=== PATIENT | female | born 1955 | race Caucasian/White ===

== ENCOUNTER 2016-11-20 11:27 | Emergency (ER) ==
[2016-11-20] MEDS ORDERED: NS 1,000 ML IV ONE ×2 (11:46→13:17)
[2016-11-20 11:57] LABS: MANUAL DIFF NEEDED? NO
[2016-11-20 12:02] LABS: BASO% 0.3 % (0.0-0.8); EOS# 0.13 X1000 (0.0-0.7); EOS% 1.7 % (0.0-10.0); HEMATOCRIT 39.9 % (37.0-47.0); HEMOGLOBIN 13.7 g/dL (12.0-16.0); LYMPH# 1.04 X1000 (1.2-3.4); LYMPH% 13.9 % (20.5-51.1); MCH 33.7 PG (27-31); MCHC 34.3 g/dL (33-37); MCV 98.3 FL (81-99); MONO# 0.57 X1000 (0.11-0.59); MONO% 7.6 % (1.7-9.3); MPV 10.1 FL (7.4-10.4); NEUT% 76.5 % (42.2-75.2); PLT 161 X1000 (130-400); RBC 4.06 XMIL (4.2-5.4)
[2016-11-20 12:20] LABS: ALBUMIN 3.8 g/dL (3.5-5.0); CALCIUM 9.4 mg/dL (8.8-10.2); POTASSIUM 3.8 mmol/L (3.5-5.1); TOTAL BILIRUBIN 0.11 mg/dL (0.20-1.00); TOTAL PROTEIN 6.6 g/dL (6.3-8.3)
[2016-11-20 12:58] LABS: URINE CULTURE NEEDED? NO; URINE MICRO REVIEW NEEDED? NO; URINE SOURCE CATH
[2016-11-20 13:03] LABS: BILIRUBIN URINE NEGATIVE (NEGATIVE); BLOOD URINE SMALL (NEGATIVE); COLOR YELLOW; GLUCOSE URINE NEGATIVE (NEGATIVE); LEUKOCYTES URINE NEGATIVE (NEGATIVE); NITRITE URINE NEGATIVE (NEGATIVE); PH URINE 5.5; PROTEIN URINE NEGATIVE (NEGATIVE); SP GRAVITY URINE 1.008; TURBIDITY URINE CLEAR (CLEAR); UROBILINOGEN URINE NORMAL (NORMAL)
[2016-11-20 13:05] LABS: UR EPITHELIAL CELLS <10 /HPF (<10); URINE BACTERIA NEGATIVE /HPF; URINE RBC <10 /HPF (<10); URINE WBC <10 /HPF (<10)
[2016-11-20 13:27] LABS: UR AMPHETAMINES QUAL NONE DETECTED (NONE DETECT); UR BARBITUATES QUAL NONE DETECTED (NONE DETECT); UR BENZODIAZEPIN QUAL NONE DETECTED (NONE DETECT); UR CANNABINOIDS QUAL NONE DETECTED (NONE DETECT); UR COCAINE QUAL NONE DETECTED (NONE DETECT); UR METHADONE QUAL NONE DETECTED (NONE DETECT); UR OPIATES QUAL PRESUMPTIVE POSITIVE (NONE DETECT); UR OXYCODONE QUAL NONE DETECTED (NONE DETECT); UR PCP QUAL NONE DETECTED (NONE DETECT)
[2016-11-20] MEDS ORDERED: DUONEB (A & A) INH ONE (15:38)
--- NOTE | 2016-11-20 15:45 | Diag Imaging Result Document ---
PROCEDURE NAME: CHEST-PORTABLE - 11/20/2016 SINGLE FRONTAL RADIOGRAPH OF THE CHEST: COMPARISON: 10/25/2016. FINDINGS: There is evidence of prior granulomatous disease, stable. The lungs are essentially clear, otherwise. There is no definite pleural fluid collection. Cardiac silhouette and central vasculature are grossly unremarkable. IMPRESSION: No definite acute pathology.
--- NOTE | 2016-11-20 15:54 | Diag Imaging Result Document ---
PROCEDURE NAME: CHEST-2 VIEWS - 11/20/2016 PA AND LATERAL RADIOGRAPH OF THE CHEST: COMPARISON: 11/20/2016. FINDINGS: There is evidence of prior granulomatous disease, stable. There are no new consolidations. Cardiac silhouette and central vasculature are grossly unremarkable. IMPRESSION: Stable chest with no definite acute pathology.
--- NOTE | 2016-11-20 16:41 | Diag Imaging Result Document ---
PROCEDURE NAME: HEAD W/O CONTRAST - 11/20/2016 CT HEAD WITHOUT CONTRAST: COMPARISON: 09/08/2015. FINDINGS: There is no discrete intracranial mass, mass effect, or intracranial hemorrhage. There is no evidence of hydrocephalus. There is no evidence of acute infarct given the limited sensitivity of CT versus MRI. The surrounding soft tissues and bony structures are essentially unremarkable. IMPRESSION: No evidence of acute intracranial pathology.
--- NOTE | 2016-11-20 17:21 | PROVIDER DOCUMENTATION ---
HPI-Syncope/Dizziness - General Chief Complaint: Syncope Stated Complaint: SYNCOPE Time Seen by Provider: 11/20/16 12:00 Source: patient, EMS Allergies/Adverse Reactions: Patient Allergies Allergy/AdvReac Type Severity Reaction Status Date / Time butorphanol tartrate * Allergy Mild NAUSEA Verified 11/20/16 12:08 [From Stadol] Home Medications: Home Medication List Medication Instructions Recorded Confirmed Last Taken Type Albuterol Sulfate [Albuterol 2 puff IH Q6H PRN PRN #1 hfa.aer.ad 09/12/1308/31/15 Rx Sulfate Hfa] 2 Levothyroxine [Synthroid] 50 microgm PO DAILY 09/12/13 11/20/16 09/15/16 08:00 History Multivitamin with Iron [Daily 1 each PO DAILY #100 tablet 11/30/14 09/15/1608/20 11:00 Rx Vitamin + Iron] Albuterol 2.5MG/Ipratrop 0.5MG 3 ml INH [id number] #30 neb 04/09/15 09/15/16 17:00 Rx [Duoneb (A & A)] Magnesium 400 mg PO HS 08/31/15 09/15/16 09/14/16 20:00 History Ropinirole HCl [Requip] 0.5 mg PO HS 08/31/15 11/20/16 09/14/16 20:00 History Dronabinol [Marinol] 1 cap PO BID 05/10/16 09/15/16 09/15/16 08:00 History Gabapentin [Neurontin] 600 mg PO BID 05/10/16 09/15/16 09/15/16 08:00 History Ondansetron HCl [Zofran] 4 mg PO Q4H PRN PRN #10 tablet 05/10/16 09/15/16 Unknown Rx Hydrocodone/APAP 7.5 mg/325 mg 1 each PO Q6H PRN PRN #10 tablet 09/15/16 Unknown Rx [[place]-7.5] Ibuprofen [Motrin] 800 mg PO Q8H PRN PRN #20 tablet 09/15/16 Unknown Rx Omeprazole [Prilosec] 20 mg PO DAILY@0700 #20 capsule 09/15/16 11/20/16 Unknown Rx Azithromycin [Zithromax Z-Valeriy] 250 mg PO DIRECTED #1 pkg 11/20/16 Unknown Rx - History of Present Illness-Syncope/Dizzy Nature of Presenting Problem: 61 yo with breast cancer and copd. 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 No falls. Friend caught her. has chronic cough. Seen here in ER 1 month ago with etoh intoxication If witnessed syncope, by whom?: friend Onset/Duration: reports: 4-6 hours ago Symptoms prior to episode: reports: lightheaded, other (body aches) Context: reports: felt faint, almost passed out Loss of Consciousness: brief (seconds) Location of injury. (If syncope resulted in an injury.): reports: none Current Symptoms: reports: lightheaded. denies: fever, chills, sweaty, breathing difficulty, abdominal pain, nausea, vomiting Recently Seen Here or By Another Healthcare Provider: No - Dizziness Dizziness Related Current/Associated Symptoms: reports: weakness, lightheaded Any recent trauma/injury?: reports: none Review of Systems - Adult - REVIEW OF SYSTEMS - ADULT Constitutional: reports: see HPI Eyes: reports: no symptoms reported Ears, Nose, Mouth & Throat: reports: no symptoms reported Cardiovascular: reports: no symptoms reported Respiratory: reports: chronic cough Gastrointestinal: reports: no symptoms reported Genitourinary: reports: no symptoms reported Musculoskeletal: reports: muscle aches, muscle weakness Integumentary: reports: no symptoms reported Neurological: reports: see HPI Psychiatric: reports: no symptoms reported Endocrine: reports: no symptoms reported Hematologic/Lymphatic: reports: other (breast cancer) Past History - Adult - PAST MEDICAL HISTORY-ADULT Review of Records: reports: Old Records Reviewed, Nursing Assessment Review, Medications Reviewed Major Childhood Illnesses: reports: history unknown Cardiovascular: reports: denies history Respiratory: reports: COPD Gastrointestinal: reports: GERD Obstetrical/Gynecological: reports: denies history Genitourinary: reports: denies history Musculoskeletal: reports: arthritis, intervertebral disc disease, osteoporosis, other Psychiatric: reports: anxiety Endocrine/Immune: reports: thyroid disorder, other (breast cancer) - PRIOR SURGERIES/PROCEDURES Surgical/Procedure History: reports: appendectomy, hysterectomy, orthopedic ( extremity), other (mastectomy) - IMMUNIZATION STATUS Childhood Immunizations: See Nurse Assessment Flu Vaccine: See Nurse Assessment - FAMILY HISTORY Family History: reviewed, not pertinent Physical Exam-General - PHYSICAL EXAM-ADULT Initial Vital Signs Reviewed: Yes - CONSTITUTIONAL General Appearance: no apparent distress, slow to respond - EYES Eyes: PERRL/EOMI - HEAD, EARS, NOSE, MOUTH & THROAT HENMT: normal ENT inspection, pharynx normal - NECK Neck: non-tender, full range of motion, supple - RESPIRATORY Respiratory: chest non-tender, lungs clear, decreased breath sounds - CARDIOVASCULAR Cardiovascular: regular rate, rhythm, no edema, no gallop, no JVD, no murmur - GASTROINTESTINAL (ABDOMEN) Abdominal Exam: normal bowel sounds, non tender, soft, no organomegaly - MUSCULOSKELETAL Back Exam: normal inspection, no CVA tenderness, no vertebral tenderness Extremity: normal range of motion, non-tender, normal inspection, no pedal edema - NEUROLOGIC Neurologic: no motor/sensory deficits, other (somnolent, arouses to voice) - PSYCHIATRIC Psych/Mental Status: oriented x 3 Progress - PLAN OF CARE/RESULTS Progress/Plan/Lab Results: Laboratory Tests 11/20/16 11/20/16 11/20/16 11:45 11:45 11:45 WBC 7.49 RBC 4.06 L Hgb 13.7 Hct 39.9 MCV 98.3 MCH 33.7 H MCHC 34.3 RDW Std Deviation 13.4 Plt Count 161 MPV 10.1 Immature Gran % (Auto) 0.0 Neut % (Auto) 76.5 H Lymph % (Auto) 13.9 L [place] % (Auto) 7.6 Eos % (Auto) 1.7 Baso % (Auto) 0.3 Immature Gran # (Auto) 0.00 Neut # (Auto) 5.73 Lymph # (Auto) 1.04 L [place] # (Auto) 0.57 Eos # (Auto) 0.13 Baso # (Auto) 0.02 D-Dimer 0.31 Sodium 138 Potassium 3.8 Chloride 99 Carbon Dioxide 26 Anion Gap 13 BUN 29 H Creatinine 1.2 H Estimated GFR/1.73 m2 46 BUN/Creatinine Ratio 24 Glucose 96 POC Glucose Calculated Osmolality 281 Calcium 9.4 Total Bilirubin 0.11 L AST 17 ALT 13 Alkaline Phosphatase 54 Troponin T Total Protein 6.6 Albumin 3.8 Globulin 2.8 Albumin/Globulin Ratio 1.4 Plasma Lactate Urine Source Urine Color Urine Turbidity Urine pH Ur Specific Wanda Urine Protein Ur Glucose (Stick) Ur Ketones (Stick) Urine Blood Urine Nitrite Urine Bilirubin Urobilinogen Dipstick Urine Leukocytes Urine WBC (Auto) Urine RBC (Auto) U Epithel Cells (Auto) Urine Bacteria (Auto) Urine Opiates Screen Ur Oxycodone Screen Ur Methadone, Qual Ur Barbiturates Screen Ur Phencyclidine Scrn Ur Amphetamines Screen U Benzodiazepines Scrn Urine Cocaine Screen U Cannabinoids Screen Plasma/Serum Ethyl Alc 11/20/16 11/20/16 11/20/16 11:45 12:12 12:51 WBC RBC Hgb Hct MCV MCH MCHC RDW Std Deviation Plt Count MPV Immature Gran % (Auto) Neut % (Auto) Lymph % (Auto) [place] % (Auto) Eos % (Auto) Baso % (Auto) Immature Gran # (Auto) Neut # (Auto) Lymph # (Auto) [place] # (Auto) Eos # (Auto) Baso # (Auto) D-Dimer Sodium Potassium Chloride Carbon Dioxide Anion Gap BUN Creatinine Estimated GFR/1.73 m2 BUN/Creatinine Ratio Glucose POC Glucose 74 Calculated Osmolality Calcium Total Bilirubin AST ALT Alkaline Phosphatase Troponin T < 0.010 Total Protein Albumin Globulin Albumin/Globulin Ratio Plasma Lactate Urine Source CATH Urine Color YELLOW Urine Turbidity CLEAR Urine pH 5.5 Ur Specific Wanda 1.008 Urine Protein NEGATIVE Ur Glucose (Stick) NEGATIVE Ur Ketones (Stick) NEGATIVE Urine Blood SMALL A Urine Nitrite NEGATIVE Urine Bilirubin NEGATIVE Urobilinogen Dipstick NORMAL Urine Leukocytes NEGATIVE Urine WBC (Auto) <10 Urine RBC (Auto) <10 U Epithel Cells (Auto) <10 Urine Bacteria (Auto) NEGATIVE Urine Opiates Screen Ur Oxycodone Screen Ur Methadone, Qual Ur Barbiturates Screen Ur Phencyclidine Scrn Ur Amphetamines Screen U Benzodiazepines Scrn Urine Cocaine Screen U Cannabinoids Screen Plasma/Serum Ethyl Alc 11/20/16 11/20/16 11/20/16 12:51 16:44 16:44 WBC RBC Hgb Hct MCV MCH MCHC RDW Std Deviation Plt Count MPV Immature Gran % (Auto) Neut % (Auto) Lymph % (Auto) [place] % (Auto) Eos % (Auto) Baso % (Auto) Immature Gran # (Auto) Neut # (Auto) Lymph # (Auto) [place] # (Auto) Eos # (Auto) Baso # (Auto) D-Dimer Sodium Potassium Chloride Carbon Dioxide Anion Gap BUN Creatinine Estimated GFR/1.73 m2 BUN/Creatinine Ratio Glucose POC Glucose Calculated Osmolality Calcium Total Bilirubin AST ALT Alkaline Phosphatase Troponin T Total Protein Albumin Globulin Albumin/Globulin Ratio Plasma Lactate 0.7 Urine Source Urine Color Urine Turbidity Urine pH Ur Specific Wanda Urine Protein Ur Glucose (Stick) Ur Ketones (Stick) Urine Blood Urine Nitrite Urine Bilirubin Urobilinogen Dipstick Urine Leukocytes Urine WBC (Auto) Urine RBC (Auto) U Epithel Cells (Auto) Urine Bacteria (Auto) Urine Opiates Screen PRESUMPTIVE POSITIVE A Ur Oxycodone Screen NONE DETECTED Ur Methadone, Qual NONE DETECTED Ur Barbiturates Screen NONE DETECTED Ur Phencyclidine Scrn NONE DETECTED Ur Amphetamines Screen NONE DETECTED U Benzodiazepines Scrn NONE DETECTED Urine Cocaine Screen NONE DETECTED U Cannabinoids Screen NONE DETECTED Plasma/Serum Ethyl Alc Orders Category Date Time Status CHEST-2 VIEWS [RAD] Stat Exams 11/20/16 13:59 Draft CHEST-PORTABLE [RAD] Stat Exams 11/20/16 11:43 Draft HEAD W/O CONTRAST [CT] Stat Exams 11/20/16 15:34 Draft ALCOHOL BLOOD Stat Lab 11/20/16 16:44 Completed BLOOD CULTURE [BLDCUL] Stat Lab 11/20/16 16:49 Results CBC WITH ELECTRONIC DIFF [HEME] Stat Lab 11/20/16 11:45 Completed COMPREHENSIVE METABOLIC PANEL [CHEM] Stat Lab 11/20/16 11:45 Completed D-DIMER [CHEM] Stat Lab 11/20/16 11:45 Completed LACTATE, PLASMA [CHEM] Stat Lab 11/20/16 16:44 Completed TROPONIN T Stat Lab 11/20/16 11:45 Completed URINALYSIS W/POSS RFLX CULT [URINALYSIS] Stat Lab 11/20/16 12:51 Completed URINE DRUG SCREEN Stat Lab 11/20/16 12:51 Completed 0.9% Sodium Chloride Inj [Ns] 1,000 ml Med 11/20/16 13:17 Discontinued IV 125 mls/hr 0.9% Sodium Chloride Inj [Ns] 1,000 ml Med 11/20/16 11:46 Discontinued IV 999 mls/hr Albuterol 2.5MG/Ipratrop 0.5MG [Duoneb (A & A)] Med 11/20/16 15:38 Discontinued 3 ml INH NOW ONE Aerosol Treatments Routine Oth 03/19/17 15:38 Completed Aerosol Treatments Stat Oth 11/20/16 15:38 Completed Vital Signs Temp Pulse Resp BP Pulse Ox 11/20/16 18:35 97.8 F 93 H 17 153/87 100 11/20/16 16:19 95 H 16 100 11/20/16 14:19 105 H 22 141/87 92 L 11/20/16 12:55 94 H 16 140/83 98 11/20/16 11:52 98.4 F 94 H 16 105/61 94 L butorphanol tartrate * [From Stadol] Allergy (Mild, Verified 11/20/16 12:08) NAUSEA Albuterol Sulfate [Albuterol Sulfate Hfa] 2 puff IH Q6H PRN PRN #1 hfa.aer.ad Levothyroxine [Synthroid] 50 microgm PO DAILY 09/12/13 Multivitamin with Iron [Daily Vitamin + Iron] 1 each PO DAILY #100 tablet Albuterol 2.5MG/Ipratrop 0.5MG [Duoneb (A & A)] 3 ml INH [id number] #30 neb Magnesium 400 mg PO HS 08/31/15 Ropinirole HCl [Requip] 0.5 mg PO HS 08/31/15 Dronabinol [Marinol] 1 cap PO BID 05/10/16 Gabapentin [Neurontin] 600 mg PO BID 05/10/16 Ondansetron HCl [Zofran] 4 mg PO Q4H PRN PRN #10 tablet 05/10/16 Hydrocodone/APAP 7.5 mg/325 mg [[place]-7.5] 1 each PO Q6H PRN PRN #10 tablet 08/20 Ibuprofen [Motrin] 800 mg PO Q8H PRN PRN #20 tablet 09/15/16 Omeprazole [Prilosec] 20 mg PO DAILY@0700 #20 capsule 09/15/16 Azithromycin [Zithromax Z-Valeriy] 250 mg PO DIRECTED #1 pkg 11/20/16 I&O 11/19/16 11/20/16 11/21/16 06:59 06:59 06:59 Output Total 20 Balance -20 Laboratory 11/20/16 11/20/16 11/20/16 16:44 16:44 12:51 WBC RBC Hgb Hct MCV MCH MCHC RDW Std Deviation Plt Count MPV Immature Gran % (Auto) Neut % (Auto) Lymph % (Auto) [place] % (Auto) Eos % (Auto) Baso % (Auto) Immature Gran # (Auto) Neut # (Auto) Lymph # (Auto) [place] # (Auto) Eos # (Auto) Baso # (Auto) D-Dimer Sodium Potassium Chloride Carbon Dioxide Anion Gap BUN Creatinine Estimated GFR/1.73 m2 BUN/Creatinine Ratio Glucose POC Glucose Calculated Osmolality Calcium Total Bilirubin AST ALT Alkaline Phosphatase Troponin T Total Protein Albumin Globulin Albumin/Globulin Ratio Plasma Lactate 0.7 Urine Source Urine Color Urine Turbidity Urine pH Ur Specific Wanda Urine Protein Ur Glucose (Stick) Ur Ketones (Stick) Urine Blood Urine Nitrite Urine Bilirubin Urobilinogen Dipstick Urine Leukocytes Urine WBC (Auto) Urine RBC (Auto) U Epithel Cells (Auto) Urine Bacteria (Auto) Urine Opiates Screen PRESUMPTIVE POSITIVE A Ur Oxycodone Screen NONE DETECTED Ur Methadone, Qual NONE DETECTED Ur Barbiturates Screen NONE DETECTED Ur Phencyclidine Scrn NONE DETECTED Ur Amphetamines Screen NONE DETECTED U Benzodiazepines Scrn NONE DETECTED Urine Cocaine Screen NONE DETECTED U Cannabinoids Screen NONE DETECTED Plasma/Serum Ethyl Alc 11/20/16 11/20/16 11/20/16 12:51 12:12 11:45 WBC RBC Hgb Hct MCV MCH MCHC RDW Std Deviation Plt Count MPV Immature Gran % (Auto) Neut % (Auto) Lymph % (Auto) [place] % (Auto) Eos % (Auto) Baso % (Auto) Immature Gran # (Auto) Neut # (Auto) Lymph # (Auto) [place] # (Auto) Eos # (Auto) Baso # (Auto) D-Dimer Sodium Potassium Chloride Carbon Dioxide Anion Gap BUN Creatinine Estimated GFR/1.73 m2 BUN/Creatinine Ratio Glucose POC Glucose 74 Calculated Osmolality Calcium Total Bilirubin AST ALT Alkaline Phosphatase Troponin T < 0.010 Total Protein Albumin Globulin Albumin/Globulin Ratio Plasma Lactate Urine Source CATH Urine Color YELLOW Urine Turbidity CLEAR Urine pH 5.5 Ur Specific Wanda 1.008 Urine Protein NEGATIVE Ur Glucose (Stick) NEGATIVE Ur Ketones (Stick) NEGATIVE Urine Blood SMALL A Urine Nitrite NEGATIVE Urine Bilirubin NEGATIVE Urobilinogen Dipstick NORMAL Urine Leukocytes NEGATIVE Urine WBC (Auto) <10 Urine RBC (Auto) <10 U Epithel Cells (Auto) <10 Urine Bacteria (Auto) NEGATIVE Urine Opiates Screen Ur Oxycodone Screen Ur Methadone, Qual Ur Barbiturates Screen Ur Phencyclidine Scrn Ur Amphetamines Screen U Benzodiazepines Scrn Urine Cocaine Screen U Cannabinoids Screen Plasma/Serum Ethyl Alc 11/20/16 11/20/16 11/20/16 11:45 11:45 11:45 WBC 7.49 RBC 4.06 L Hgb 13.7 Hct 39.9 MCV 98.3 MCH 33.7 H MCHC 34.3 RDW Std Deviation 13.4 Plt Count 161 MPV 10.1 Immature Gran % (Auto) 0.0 Neut % (Auto) 76.5 H Lymph % (Auto) 13.9 L [place] % (Auto) 7.6 Eos % (Auto) 1.7 Baso % (Auto) 0.3 Immature Gran # (Auto) 0.00 Neut # (Auto) 5.73 Lymph # (Auto) 1.04 L [place] # (Auto) 0.57 Eos # (Auto) 0.13 Baso # (Auto) 0.02 D-Dimer 0.31 Sodium 138 Potassium 3.8 Chloride 99 Carbon Dioxide 26 Anion Gap 13 BUN 29 H Creatinine 1.2 H Estimated GFR/1.73 m2 46 BUN/Creatinine Ratio 24 Glucose 96 POC Glucose Calculated Osmolality 281 Calcium 9.4 Total Bilirubin 0.11 L AST 17 ALT 13 Alkaline Phosphatase 54 Troponin T Total Protein 6.6 Albumin 3.8 Globulin 2.8 Albumin/Globulin Ratio 1.4 Plasma Lactate Urine Source Urine Color Urine Turbidity Urine pH Ur Specific Wanda Urine Protein Ur Glucose (Stick) Ur Ketones (Stick) Urine Blood Urine Nitrite Urine Bilirubin Urobilinogen Dipstick Urine Leukocytes Urine WBC (Auto) Urine RBC (Auto) U Epithel Cells (Auto) Urine Bacteria (Auto) Urine Opiates Screen Ur Oxycodone Screen Ur Methadone, Qual Ur Barbiturates Screen Ur Phencyclidine Scrn Ur Amphetamines Screen U Benzodiazepines Scrn Urine Cocaine Screen U Cannabinoids Screen Plasma/Serum Ethyl Alc - REASSESSMENT Reassessment #1 Time Reassessed: 18:00 (gradual improving mental status over several hours? dehydration, ? opioid related) - EKG 1 EKG Read and Signed by:: Solange Mosley EKG Interpretation (*Must complete 3 of following elements*): Normal Rhythm: nsr - XRAY 1 XRAY Study: Chest (no acute changes) - CT/MRI 1 CT Study: Head (no intracranial acute process) Departure - Departure Time of Disposition Order: 18:32 DIAGNOSIS: Syncope, Bronchitis Disposition: HOME 01 Certified Medical Emergency: Emergent Condition: Fair Additional Instructions: Drink plenty of fluids, get up slowly and sit on the edge of bed before standing. Be cautious with your pain medication use. No work for 2 days. Return to emergency room if further fainting spells See your regular doctor if you continue to feel light headed. Fill and take zith romax for your cough ED Follow Up Instructions: You have been treated by a care provider in the Emergency Department. These instructions are being provided to you so you can have an understanding of how to care for yourself upon discharge. Upon discharge from the Emergency Department, you are responsible for making arrangements for follow-up care by a physician of your choice. Take all prescribed medications as directed. Return to the Emergency Department immediately for any new or worsening symptoms. You may call the Physician Referral phone number at [phone] to obtain a list of Physicians who are taking new patients. Prescriptions: Azithromycin [Zithromax Z-Valeriy] 250 mg PO DIRECTED #1 pkg Referrals: None,PCP [Primary Care Provider] - Forms: Return to School/Parent Work Instructions: Acute Bronchitis, [id number], Syncope, [id number]
[2016-11-20 18:36] VITALS: BP 153/87
--- NOTE | 2016-11-21 05:52 | EKG Report ---
Test Performed on : 11/20/2016 11:33:55 AM Test Reason : No Order in [employer] Blood Pressure : / mmHG Vent. Rate : 090 BPM Atrial Rate : 090 BPM P-R Int : 138 ms QRS Dur : 080 ms QT Int : 356 ms P-R-T Axes : 077 071 068 degrees QTc Int : 435 ms Normal sinus rhythm. Possible Left atrial enlargement Borderline ECG When compared with ECG of 10-MAY-2016 06:33, No significant change was found Unconfirmed Result
== END 2016-11-20 18:50 | disposition home or self-care (01) ==
LOC: EDBD → ED 11:27
DX: R55 Syncope and collapse (principal); J40 Bronchitis, not specified as acute or chronic; R42 Dizziness and giddiness; M79.1 Myalgia; M62.81 Muscle weakness (generalized); R05 Cough; Z85.3 Personal history of malignant neoplasm of breast; K21.9 Gastro-esophageal reflux disease without esophagitis; J44.9 Chronic obstructive pulmonary disease, unspecified; M19.90 Unspecified osteoarthritis, unspecified site; M81.0 Age-related osteoporosis without current pathological fracture; E07.9 Disorder of thyroid, unspecified; Z90.10 Acquired absence of unspecified breast and nipple; Z79.899 Other long term (current) drug therapy
CPT/HCPCS: 36415; 70450; 71010; 71020; 80053; 81001; 82948; 83605; 84484; 85025; 85379; 87040; 93005; 94640; 94761; 96360; G0480; J7030; P9612; 80320; 80324; 80345; 80346; 80349; 80353; 80358; 80361; 80365; 83992

== ENCOUNTER 2019-07-15 22:54 | Inpatient (IN) ==
--- NOTE | 2019-07-15 23:50 | EKG Report ---
Test Performed on : 07/15/2019 11:43:24 PM Test Reason : SYNCOPE Blood Pressure : / mmHG Vent. Rate : 085 BPM Atrial Rate : 085 BPM P-R Int : 152 ms QRS Dur : 092 ms QT Int : 376 ms P-R-T Axes : 078 065 063 degrees QTc Int : 447 ms Normal sinus rhythm. Normal ECG When compared with ECG of 20-NOV-2016 11:33, No significant change was found Unconfirmed Result
[2019-07-16 00:30] LABS: BASO# 0.03 X1000 (0.0-0.2); BASO% 0.6 % (0.0-0.8); EOS# 0.08 X1000 (0.0-0.7); EOS% 1.5 % (0.0-10.0); HEMATOCRIT 33.2 % (37.0-47.0); HEMOGLOBIN 11.5 g/dL (12.0-16.0); IMM GRAN# 0.01 X1000 (0.0-0.04); IMM GRAN% 0.2 % (0.0-0.5); LYMPH# 0.59 X1000 (1.2-3.4); LYMPH% 11.4 % (20.5-51.1); MCH 30.4 PG (27-31); MCHC 34.6 g/dL (33-37); MCV 87.8 FL (81-99); MONO# 0.75 X1000 (0.11-0.59); MONO% 14.5 % (1.7-9.3); MPV 9.2 FL (7.4-10.4); NEUT# 3.73 X1000 (1.4-6.5); NEUT% 71.8 % (42.2-75.2); PLT 174 X1000 (130-400); RBC 3.78 XMIL (4.2-5.4); RDW 12.4 % (11.5-14.5); WBC 5.19 X1000 (4.8-10.8)
[2019-07-16 00:32] LABS: BILIRUBIN URINE NEGATIVE (NEGATIVE); BLOOD URINE 3+ (NEGATIVE); CLARITY CLEAR (CLEAR); COLOR YELLOW; GLUCOSE URINE NEGATIVE (NEGATIVE); KETONE URINE NEGATIVE (NEGATIVE); LEUKOCYTES URINE NEGATIVE (NEGATIVE); NITRITE URINE NEGATIVE (NEGATIVE); PROTEIN URINE 1+(30 mg/dL) mg/dL (NEGATIVE); UROBILINOGEN URINE NORMAL
[2019-07-16 00:33] LABS: UR AMPHETAMINES QUAL NONE DETECTED (NONE DETECT); UR BARBITUATES QUAL NONE DETECTED (NONE DETECT); UR BENZODIAZEPIN QUAL PRESUMPTIVE POSITIVE (NONE DETECT); UR CANNABINOIDS QUAL PRESUMPTIVE POSITIVE (NONE DETECT); UR COCAINE QUAL NONE DETECTED (NONE DETECT); UR METHADONE QUAL NONE DETECTED (NONE DETECT); UR METHAMPHETAMINE QUAL NONE DETECTED (NONE DETECT); UR OPIATES QUAL PRESUMPTIVE POSITIVE (NONE DETECT); UR OXYCODONE QUAL NONE DETECTED (NONE DETECT); UR PCP QUAL NONE DETECTED (NONE DETECT); UR PROPOXYPHENE QUAL NONE DETECTED (NONE DETECT); UR TCA QUAL PRESUMPTIVE POSITIVE (NONE DETECT)
[2019-07-16 00:34] LABS: INR 0.92; PROTIME 12.8 Seconds (11.0-16.0)
[2019-07-16 00:35] LABS: PTT 32.9 Seconds (22.3-41.8)
--- NOTE | 2019-07-16 00:38 | PROVIDER DOCUMENTATION ---
This chart was entered by Gita Wilkerson Scribe, acting as scribe for Ainsley White CRNP. HPI-Syncope/Dizziness - General Source: patient - History of Present Illness-Syncope/Dizzy If witnessed syncope, by whom?: unwitnessed Prior Episodes: reports: single episode today Onset/Duration: reports: just prior to arrival Timing: reports: improving Position/Activity at time of episode: reports: standing Symptoms prior to episode: reports: none Context: reports: lost consciousness, collapsed, breathing stopped (per pt) Loss of Consciousness: prolonged (minutes) (per pt) Location of injury. (If syncope resulted in an injury.): reports: none Current Symptoms: reports: weakness, lightheaded Recently Seen Here or By Another Healthcare Provider: Yes - Dizziness Severity in ED: reports: mild Dizziness Related Current/Associated Symptoms: reports: weakness, lightheaded Any recent trauma/injury?: reports: none Modifying Factors: improves with: nothing Patient usually:: reports: walks without assistance <Ainsley White - Last Filed: 07/16/19 00:38> <Baljit Estevez - Last Filed: 07/16/19 02:29> - General Stated Complaint: passed out Time Seen by Provider: 07/15/19 22:54 Allergies/Adverse Reactions: Patient Allergies Allergy/AdvReac Type Severity Reaction Status Date / Time butorphanol tartrate * Allergy Mild NAUSEA Verified 10/27/18 00:44 [From Stadol] Home Medications: Home Medication List Medication Instructions Recorded Confirmed Last Taken Type Gabapentin [Neurontin] 800 mg PO TID 05/10/16 07/16/19 02/13/18 19:00 History Hydrocodone/APAP 10 mg/325 mg 1 each PO Q12H PRN PRN 02/13/18 07/16/19 02/12/18 08:00 History [[place]-10] Omeprazole [Prilosec] 40 mg PO DAILY 02/13/18 07/16/19 02/13/18 09:00 History Baclofen 10 mg PO TID 07/16/19 07/16/19 Unknown History Celecoxib 1 cap PO DAILY 07/16/19 07/16/19 Unknown History Cyclobenzaprine HCl 10 mg PO TID 07/16/19 07/16/19 Unknown History Diclofenac Sodium 75 mg PO BID 07/16/19 07/16/19 Unknown History Lorazepam 1 tab PO BID 07/16/19 07/16/19 Unknown History Quetiapine Fumarate 25 mg PO HS 07/16/19 07/16/19 Unknown History Varenicline Tartrate [Chantix] 1 dose PO ORDERED 07/16/19 07/16/19 Unknown History - History of Present Illness-Syncope/Dizzy Nature of Presenting Problem: pt is a 63 yr old female presenting via EMS post syncope. pt reports she was dx as metastatic lung cancer 4 days ago. pt reports tonight she took all her night medications and then passed out as she was going to bed. pt states "I passed out and stopped breathing, and had trouble talking" per EMS pt was breathing and talking without difficulty upon their arrival. (Ainsley White) Review of Systems - Adult - REVIEW OF SYSTEMS - ADULT Constitutional: reports: fatique. denies: chills, fever Eyes: reports: no symptoms reported Ears, Nose, Mouth & Throat: reports: no symptoms reported Cardiovascular: reports: no symptoms reported Respiratory: denies: cough, shortness of breath Gastrointestinal: denies: abdominal pain, diarrhea, nausea, vomiting Genitourinary: reports: no symptoms reported Musculoskeletal: denies: back pain, joint pain, neck pain Integumentary: reports: no symptoms reported Neurological: reports: dizziness/vertigo, slurred speech, syncope. denies: headache/migraines Psychiatric: reports: no symptoms reported Endocrine: reports: no symptoms reported Hematologic/Lymphatic: reports: no symptoms reported Allergic/Immunologic: reports: no symptoms reported All Other Systems: Reviewed and Negative <Ainsley White - Last Filed: 07/16/19 00:38> Past History - Adult - PAST MEDICAL HISTORY-ADULT Review of Records: reports: Old Records Reviewed, Nursing Assessment Review, Medications Reviewed, Social history reviewed & non-contributory. Major Childhood Illnesses: reports: history unknown Cardiovascular: reports: denies history Respiratory: reports: COPD Gastrointestinal: reports: GERD Obstetrical/Gynecological: reports: denies history Genitourinary: reports: denies history Musculoskeletal: reports: arthritis, intervertebral disc disease, osteoporosis, other Neurological: reports: denies history Psychiatric: reports: anxiety Endocrine/Immune: reports: thyroid disorder, other (breast cancer) Other Conditions: reports: denies history - PRIOR SURGERIES/PROCEDURES Surgical/Procedure History: reports: appendectomy, hysterectomy, orthopedic (extremity), other (mastectomy) - IMMUNIZATION STATUS Childhood Immunizations: See Nurse Assessment Flu Vaccine: See Nurse Assessment - FAMILY HISTORY Family History: reviewed, not pertinent - SOCIAL HISTORY Smoking: cigarettes Provider spent 3-5 mins advising pt. on dangers of tobacco.: Discussed manners to quit use, and f/u contacts for add'l counseling. Living Situation: family <Ainsley White - Last Filed: 07/16/19 00:38> Physical Exam-General - PHYSICAL EXAM-ADULT Initial Vital Signs Reviewed: Yes - CONSTITUTIONAL General Appearance: alert, no apparent distress, thin. negative: appears well (CHRONICALLY ILL APPEARING) - EYES Eyes: PERRL/EOMI - HEAD, EARS, NOSE, MOUTH & THROAT HENMT: normocephalic/atraumatic, moist mucous membranes, normal ENT inspection - NECK Neck: non-tender, full range of motion, supple, normal inspection - RESPIRATORY Respiratory: lungs clear, normal breath sounds - CARDIOVASCULAR Cardiovascular: normal peripheral pulses, regular rate, rhythm - GASTROINTESTINAL (ABDOMEN) Abdominal Exam: normal bowel sounds, non tender, soft - LYMPHATIC Lymphatic: no adenopathy - MUSCULOSKELETAL Back Exam: normal inspection, no CVA tenderness, no vertebral tenderness Extremity: normal range of motion, non-tender, normal gait, normal inspection - SKIN Integumentary: normal color, normal turgor, warm/dry - NEUROLOGIC Neurologic: grossly normal, no motor/sensory deficits - PSYCHIATRIC Psych/Mental Status: normal mood/affect <Ainsley White - Last Filed: 07/16/19 00:38> Progress - PLAN OF CARE/RESULTS Result Diagrams: 07/15/19 23:45 - REASSESSMENT Reassessment #1 Time Reassessed: 23:31 (PT SLEEPING SOUNDLY BUT EASILY AROUSABLE ON EXAM. REQUESTING PAIN MEDS BUT WAS SNORING WHEN ORIGINALLY ASSESSED ) Status: unchanged - EKG 1 Time of EKG reading by physician:: 23:43 EKG Read and Signed by:: Baljit Estevez EKG Interpretation (*Must complete 3 of following elements*): Normal Rate: 85 Rhythm: NSR [place]: normal QRS: normal [place] Interval: normal ST Wave: normal Prior EKG Comparison: unchanged from prior - CT/MRI 1 CT Study: Head Impression: See EMR Report (1. STABLE HEAD CT NO ACUTE INTRACRANIAL PROCESS.) - CHANGE OF SHIFT REPORT (ED Provider) 1 Report Given and Care Transferred to:: DR ESTEVEZ Time of Transfer: 00:37 Items Pending: Labs (CMP PENDING---> DC, DISCUSSED POSSIBLE OVER MEDICATION) <Ainsley White - Last Filed: 07/16/19 00:38> - PLAN OF CARE/RESULTS Result Diagrams: 07/15/19 23:45 07/15/19 23:47 <Baljit Estevez - Last Filed: 07/16/19 02:29> - PLAN OF CARE/RESULTS Progress/Plan/Lab Results: Vital Signs - 8 hr 07/15/19 22:56 07/16/19 01:39 Temperature 97.9 F Pulse Rate 85 90 Respiratory Rate 16 21 Blood Pressure 113/83 126/83 O2 Sat by Pulse Oximetry 97 100 Laboratory Results - last 24 hr 07/15/19 07/15/19 07/15/19 00:18 00:18 23:45 WBC 5.19 RBC 3.78 L Hgb 11.5 L Hct 33.2 L MCV 87.8 MCH 30.4 MCHC 34.6 RDW Std Deviation 12.4 Plt Count 174 MPV 9.2 Immature Gran % (Auto) 0.2 Neut % (Auto) 71.8 Lymph % (Auto) 11.4 L [place] % (Auto) 14.5 H Eos % (Auto) 1.5 Baso % (Auto) 0.6 Immature Gran # (Auto) 0.01 Neut # (Auto) 3.73 Lymph # (Auto) 0.59 L [place] # (Auto) 0.75 H Eos # (Auto) 0.08 Baso # (Auto) 0.03 PT INR PTT ([place] FS) Sodium Potassium Chloride Carbon Dioxide Anion Gap BUN Creatinine Estimated GFR/1.73 m2 BUN/Creatinine Ratio Glucose POC Glucose Calculated Osmolality Calcium Total Bilirubin AST ALT Alkaline Phosphatase Creatine Kinase Troponin T Total Protein Albumin Globulin Albumin/Globulin Ratio Urine Source CATH Urine Color YELLOW Urine Clarity CLEAR Urine pH 6.0 Ur Specific [place] 1.020 Urine Protein 1+(30 mg/dL) A Urine Ketones NEGATIVE Urine Blood 3+ A Urine Nitrite NEGATIVE Urine Bilirubin NEGATIVE Urine Urobilinogen NORMAL Urine Microscopic RBC 10-20 A Urine WBC NEGATIVE Urine Microscopic WBC <10 Ur Epithelial Cells <10 Urine Bacteria 2+ Urine Yeast PRESENT Urine Glucose NEGATIVE Urine Opiates Screen PRESUMPTIVE POSITIVE A Ur Oxycodone Screen NONE DETECTED Urine Methadone Screen NONE DETECTED U Propoxyphene Qual NONE DETECTED Ur Barbituates Screen NONE DETECTED Ur Tricyclics Screen PRESUMPTIVE POSITIVE A Ur Phencyclidine Scrn NONE DETECTED Ur Amphetamines Screen NONE DETECTED U Methamphetamines Scrn NONE DETECTED U Benzodiazepines Scrn PRESUMPTIVE POSITIVE A Urine Cocaine Screen NONE DETECTED U Cannabinoids Screen PRESUMPTIVE POSITIVE A Plasma/Serum Ethyl Alc 07/15/19 07/15/19 07/15/19 23:45 23:46 23:47 WBC RBC Hgb Hct MCV MCH MCHC RDW Std Deviation Plt Count MPV Immature Gran % (Auto) Neut % (Auto) Lymph % (Auto) [place] % (Auto) Eos % (Auto) Baso % (Auto) Immature Gran # (Auto) Neut # (Auto) Lymph # (Auto) [place] # (Auto) Eos # (Auto) Baso # (Auto) PT INR PTT ([place] FS) Sodium Potassium Chloride Carbon Dioxide Anion Gap BUN Creatinine Estimated GFR/1.73 m2 BUN/Creatinine Ratio Glucose POC Glucose 102 Calculated Osmolality Calcium Total Bilirubin AST ALT Alkaline Phosphatase Creatine Kinase 79 Troponin T Total Protein Albumin Globulin Albumin/Globulin Ratio Urine Source Urine Color Urine Clarity Urine pH Ur Specific [place] Urine Protein Urine Ketones Urine Blood Urine Nitrite Urine Bilirubin Urine Urobilinogen Urine Microscopic RBC Urine WBC Urine Microscopic WBC Ur Epithelial Cells Urine Bacteria Urine Yeast Urine Glucose Urine Opiates Screen Ur Oxycodone Screen Urine Methadone Screen U Propoxyphene Qual Ur Barbituates Screen Ur Tricyclics Screen Ur Phencyclidine Scrn Ur Amphetamines Screen U Methamphetamines Scrn U Benzodiazepines Scrn Urine Cocaine Screen U Cannabinoids Screen Plasma/Serum Ethyl Alc 07/15/19 07/15/19 07/15/19 23:47 23:47 23:47 WBC RBC Hgb Hct MCV MCH MCHC RDW Std Deviation Plt Count MPV Immature Gran % (Auto) Neut % (Auto) Lymph % (Auto) [place] % (Auto) Eos % (Auto) Baso % (Auto) Immature Gran # (Auto) Neut # (Auto) Lymph # (Auto) [place] # (Auto) Eos # (Auto) Baso # (Auto) PT 12.8 INR 0.92 PTT (Actin FS) 32.9 Sodium 118 L* Potassium 3.7 Chloride 84 L Carbon Dioxide 24 L Anion Gap 10 BUN 11 Creatinine 0.5 Estimated GFR/1.73 m2 > 60 BUN/Creatinine Ratio 22 Glucose 113 H POC Glucose Calculated Osmolality 239 Calcium 9.0 Total Bilirubin < 0.15 L AST 32 H ALT 28 Alkaline Phosphatase 114 H Creatine Kinase Troponin T < 0.010 Total Protein 5.8 L Albumin 3.8 Globulin 2.0 Albumin/Globulin Ratio 2.0 Urine Source Urine Color Urine Clarity Urine pH Ur Specific [place] Urine Protein Urine Ketones Urine Blood Urine Nitrite Urine Bilirubin Urine Urobilinogen Urine Microscopic RBC Urine WBC Urine Microscopic WBC Ur Epithelial Cells Urine Bacteria Urine Yeast Urine Glucose Urine Opiates Screen Ur Oxycodone Screen Urine Methadone Screen U Propoxyphene Qual Ur Barbituates Screen Ur Tricyclics Screen Ur Phencyclidine Scrn Ur Amphetamines Screen U Methamphetamines Scrn U Benzodiazepines Scrn Urine Cocaine Screen U Cannabinoids Screen Plasma/Serum Ethyl Alc Orders Category Date Time Status Cardiac Monitoring DIRECTED Care 07/15/19 22:55 Active FSBS/Accucheck Result NOW Care 07/15/19 22:55 Active Saline Loc NOW Care 07/15/19 22:[address] HEAD W/O CONTRAST [CT] Stat Exams 07/15/19 22:58 Taken ALCOHOL BLOOD Stat Lab 07/15/19 23:45 Completed CBC WITH ELECTRONIC DIFF [HEME] Stat Lab 07/15/19 23:45 Completed CK PROFILE [SP CHEM] Stat Lab 07/15/19 23:47 Completed CMP [COMPREHENSIVE METABOLIC PANEL] [CHEM] Stat Lab 07/16/19 00:37 Completed PROTIME WITH INR [COAG] Stat Lab 07/15/19 23:47 Completed PTT [COAG] Stat Lab 07/15/19 23:47 Completed TROPONIN T Stat Lab 07/15/19 23:47 Completed UA NIMS W/REFLEX CULT PL [URINALYSIS] Stat Lab 07/15/19 00:18 Completed URINE CULTURE [RM] Routine Lab 07/16/19 00:[address]UG SCREEN [address] Stat Lab 07/15/19 00:18 Completed EKG [EKG] Stat Ther 07/15/19 22:55 Draft Departure <Ainsley White - Last Filed: 07/16/19 00:38> - Departure Date of Disposition Decision: 07/16/19 Time of Disposition Decision: 02:19 Certified Medical Emergency: Emergent - Critical Care Note This patient required my direct & personal management of CC.: No <Baljit Estevez - Last Filed: 07/16/19 02:29> - Departure DIAGNOSIS: Syncope, Hyponatremia Disposition: ADMITTED INPATIENT 09 Condition: Stable Referrals and Follow-Ups: None,PCP [Primary Care Provider] - Attestation - Physician/ VIANNEY Attestation Patient care was provided by Advanced Practice Provider:: Yes Advanced Practice Provider documentation review:: The Mid-level provider documentation, treatment plan and medical decision making was reviewed by the physician who agrees with all treatment and medical decision making by the MLP. The physician spent face to face time with patient:: Yes Advanced Practice Provider documentation review:: Supervising physician onsite and consulted in the evaluation and care of this patient. The physician did have a face to face encounter with the patient. <Baljit Estevez - Last Filed: 07/16/19 02:29> This chart was documented by the indicated scribe, (Gita Wilkerson, Jakob) and accurately reflects the services I performed and decisions made by me, Ainsley White CRNP, as attested by the provider's signature.
[2019-07-16 00:45] LABS: URINE BACTERIA 2+ /HFP; URINE EPITHELIAL CELLS <10 /HPF (<10); URINE SOURCE CATH; URINE WBC <10 /HPF (<10)
[2019-07-16 00:48] LABS: URINE YEAST PRESENT /HPF
[2019-07-16 02:03] LABS: ALBUMIN 3.8 g/dL (3.5-5.0); ALKALINE PHOSPHATASE 114 U/L (32-104); BUN 11 mg/dL (8-22); COSMO 239; CREATININE 0.5 mg/dL (0.5-0.9); ESTIMATED GFR > 60; GLUCOSE 113 mg/dL (70-104); GOT 32 U/L (10-30); GPT 28 U/L (10-36); TOTAL BILIRUBIN < 0.15 mg/dL (0.20-1.00); TOTAL PROTEIN 5.8 g/dL (6.3-8.3)
[2019-07-16 02:10] LABS: AGAP 10; CHLORIDE 84 mmol/L (98-107); POTASSIUM 3.7 mmol/L (3.5-5.1); TCO2 24 mmol/L (25-35)
[2019-07-16] MEDS ORDERED: NS 2,000 ML IV ONE (02:23)
[2019-07-16 02:33] LABS: SODIUM 118 mmol/L (136-145)
--- NOTE | 2019-07-16 05:59 | Diag Imaging Result Doc PS360 ---
EXAM: CT HEAD W/O CONTRAST HISTORY: SYNCOPE TECHNIQUE: CT head without contrast COMPARISON: 11/20/2016 FINDINGS: No parenchymal hemorrhage. No epidural or subdural hematoma. No subarachnoid hemorrhage. Old left basal ganglia lacunar infarct. No mass identified on this noncontrasted exam. No hydrocephalus. No sinus opacification. IMPRESSION: 1.No hemorrhage 2.Old left lacunar infarct 3.A preliminary report was given at 11:50 PM on 07/15/2019 This exam was performed using automated exposure control, adjustment of mA or kV according to patient size, and/or use of iterative reconstruction technique. Electronically signed by Mich Helms 07/16/2019 5:57 AM
[2019-07-16 06:52] LABS: ESTIMATED GFR > 60
[2019-07-16 07:01] LABS: AGAP 8; BUN 8 mg/dL (8-22); CALCIUM 8.9 mg/dL (8.8-10.2); CHLORIDE 87 mmol/L (98-107); COSMO 236; CREATININE 0.4 mg/dL (0.5-0.9); GLUCOSE 88 mg/dL (70-104); POTASSIUM 3.6 mmol/L (3.5-5.1); TCO2 23 mmol/L (25-35)
[2019-07-16 07:02] LABS: SODIUM 118 mmol/L (136-145)
[2019-07-16] MEDS: NORCO-10 PO PRN ×3 (08:48→18:05)
[2019-07-16] MEDS: LIORESAL PO SCH ×3 (08:49→20:10)
[2019-07-16] MEDS: NEURONTIN PO SCH ×3 (08:49→20:06)
[2019-07-16 10:28] LABS: AGAP 10; BUN 8 mg/dL (8-22); CALCIUM 8.6 mg/dL (8.8-10.2); CHLORIDE 90 mmol/L (98-107); COSMO 245; CREATININE 0.5 mg/dL (0.5-0.9); ESTIMATED GFR > 60; GLUCOSE 86 mg/dL (70-104); SODIUM 123 mmol/L (136-145); TCO2 22 mmol/L (25-35)
[2019-07-16] MEDS: ATIVAN PO PRN ×2 (11:00→20:06)
[2019-07-16 13:15] LABS: ESTIMATED GFR > 60
[2019-07-16 13:22] LABS: AGAP 9; BUN 7 mg/dL (8-22); CALCIUM 8.5 mg/dL (8.8-10.2); CHLORIDE 88 mmol/L (98-107); COSMO 237; CREATININE 0.5 mg/dL (0.5-0.9); GLUCOSE 79 mg/dL (70-104); POTASSIUM 4.2 mmol/L (3.5-5.1); TCO2 22 mmol/L (25-35)
[2019-07-16 13:23] LABS: SODIUM 119 mmol/L (136-145)
[2019-07-16] MEDS: ZOFRAN IV PRN (16:25)
[2019-07-16 17:25] LABS: ESTIMATED GFR > 60
[2019-07-16 17:38] LABS: AGAP 10; BUN 5 mg/dL (8-22); CALCIUM 8.1 mg/dL (8.8-10.2); CHLORIDE 86 mmol/L (98-107); COSMO 232; CREATININE 0.4 mg/dL (0.5-0.9); GLUCOSE 93 mg/dL (70-104); POTASSIUM 3.7 mmol/L (3.5-5.1); TCO2 20 mmol/L (25-35)
[2019-07-16 17:42] LABS: SODIUM 116 mmol/L (136-145)
[2019-07-16] MEDS: NICODERM PATCH TD SCH (18:04)
--- NOTE | 2019-07-16 18:49 | HISTORY AND PHYSICAL ---
ADDENDUM: Patient seen and examined by myself. Full note dictated and discussed with nurse practitioner. Patient presented to the hospital with a very difficult to follow history. She reports that she was diagnosed recently with metastatic lung cancer, but has not had a biopsy. She has not received any treatment. She also reports that she had a syncopal episode in which she passed out and stopped breathing for an undetermined amount of time. However, she notes that this event was only witnessed by herself. She does have a sodium low at 118. Her going to admit her to the hospital, place her on normal saline, check urine electrolytes, and will follow. Her CT of the head demonstrated an old lacunar infarct. MRI done 3 days ago showed no brain metastasis. cc: Manuel De La O MD
--- NOTE | 2019-07-16 19:07 | HISTORY AND PHYSICAL ---
CHIEF COMPLAINT: Syncope. HISTORY OF PRESENT ILLNESS: This is a 63-year-old female with a history of breast cancer status, post chemotherapy, XRT and mastectomy with reportedly recent diagnosis of stage IV lung cancer with liver and spine metastasis. She presented to the emergency room via EMS after having a syncopal episode. The patient stated that she passed out. She stopped breathing, but she knows she restarted breathing while she was passed out. She then called 911. She denied any injury. She did state that she was weak after this episode. She was alone during this episode. She stated that she had difficulty talking, although when EMS arrived, they stated that the patient was breathing, talking without difficulty and they reported no neurologic deficits. PAST MEDICAL HISTORY: COPD, gastroesophageal reflux disease, anxiety, chronic kidney disease, thyroid nodules, breast cancer. PAST SURGICAL HISTORY: Bilateral mastectomy. SOCIAL HISTORY: She smokes about a pack a day. She drinks alcohol occasionally. She denies any illicit drug or tobacco use. ALLERGIES: Stadol, which causes nausea. HOME MEDICATIONS: A list will be obtained by the nursing staff, and once verified we will review and restart as appropriate. REVIEW OF SYSTEMS: Discussed with the patient, with pertinent positives stated in the HPI. She denied any chest pain or palpitations, any fevers or chills, any night sweats, cough, shortness of breath, any nausea, vomiting, diarrhea, constipation, any black or bloody vomitus or stools, hematuria, dysuria, frequency or urgency. PHYSICAL EXAMINATION: GENERAL: This is a 63-year-old female who is sitting up in the bed, drowsy but in no distress. VITAL SIGNS: Blood pressure is 154/80 with a heart rate of 90, respirations are 16, temperature is 97.9 degrees with room air saturations 99% to 100%. EYES: Pupils are equal, round and reactive to light. EOMs are intact. Sclerae are anicteric. HEENT: Head is normocephalic, atraumatic. Mucous membranes are moist. NECK: Supple, with trachea midline. CARDIOVASCULAR: Regular rate and rhythm. S1 and S2 appreciated. No murmurs. She has no lower extremity edema. Calves are nontender bilaterally, with peripheral pulses palpable x4 extremities. PULMONARY: Breath sounds are clear with no increased work of breathing noted. Chest rises and falls symmetric with respiration. GASTROINTESTINAL: Abdomen is soft, nontender, nondistended. Bowel sounds in all 4 quadrants. NEUROLOGIC: She is alert and oriented x3. Pupils are equal, round and reactive to light. Forehead is spared. She has no slurred speech. No tongue or uvula deviation. Shoulder shrug is equal. No plantar drift. [employer] Worker are equal. Muscle strength is 3/3 x4 extremities. LABORATORY DATA: WBC is 5.1 with hemoglobin 11.5, hematocrit 33.2, platelets 174,000. Sodium is 118, potassium 3.7, BUN 11, creatinine 0.5 with a glucose of 113. Catheterized urine reveals 10-20 microscopic red blood cells with less than 10 epithelial and microscopic white blood cells. Urine drug screen is positive for opiates, tricyclics, benzodiazepines and cannabinoids. DIAGNOSTIC DATA: CT of the head reveals no hemorrhage; old left lacunar infarct. ASSESSMENT: 1. Reported syncopal episode. 2. Hyponatremia. 3. Reported chronic kidney disease. 4. Reported recent diagnosis of stage IV lung cancer with liver and spine metastasis, followed by Dr. Miladys Vaughn. 5. History of breast cancer, status post mastectomies, external beam radiation therapy and radiation. 6. Chronic thoracic back pain. PLAN: The patient has been admitted to the medical/surgical floor at [facility] and placed on telemetry which we will continue. We will identify her home medications and continue these as appropriate. Her sodium is staying 118 to 123. We will check a serum osmolality as well as a random sodium and urine osmolality. We will review her home medications for any that could lead to hyponatremia. We will continue to trend BMP to monitor electrolytes. Further treatments pending hospital course. Plan was discussed with Dr. De La O. Dictated by KATLIN Metzger for Manuel De La O MD cc: KATLIN Metzger MD
[2019-07-16 21:29] LABS: AGAP 10; BUN 4 mg/dL (8-22); CALCIUM 8.2 mg/dL (8.8-10.2); CHLORIDE 85 mmol/L (98-107); COSMO 230; CREATININE 0.4 mg/dL (0.5-0.9); ESTIMATED GFR > 60; GLUCOSE 74 mg/dL (70-104); POTASSIUM 2.9 mmol/L (3.5-5.1); TCO2 21 mmol/L (25-35)
[2019-07-16 21:33] LABS: SODIUM 116 mmol/L (136-145)
[2019-07-17] MEDS: NORCO-10 PO PRN ×5 (03:27→21:23)
[2019-07-17] MEDS: ZOFRAN IV PRN (05:18)
[2019-07-17] MEDS ORDERED: ZOFRAN ODT PO PRN ×2 (06:46→13:55)
[2019-07-17] MEDS ORDERED: VARENICLINE TARTRATE PO SCH (07:00)
[2019-07-17 07:04] LABS: HEMATOCRIT 37.1 % (37.0-47.0); HEMOGLOBIN 12.7 g/dL (12.0-16.0); MCH 29.7 PG (27-31); MCHC 34.2 g/dL (33-37); MCV 86.9 FL (81-99); MPV 9.3 FL (7.4-10.4); RBC 4.27 XMIL (4.2-5.4); RDW 12.3 % (11.5-14.5); WBC 3.18 X1000 (4.8-10.8)
[2019-07-17 07:21] LABS: AGAP 7; ALBUMIN 3.6 g/dL (3.5-5.0); ALKALINE PHOSPHATASE 124 U/L (32-104); BUN 3 mg/dL (8-22); CALCIUM 8.6 mg/dL (8.8-10.2); CHLORIDE 82 mmol/L (98-107); COSMO 227; CREATININE 0.4 mg/dL (0.5-0.9); ESTIMATED GFR > 60; GLUCOSE 85 mg/dL (70-104); GOT 54 U/L (10-30); GPT 44 U/L (10-36); POTASSIUM 3.9 mmol/L (3.5-5.1); TCO2 25 mmol/L (25-35)
[2019-07-17 07:28] LABS: SODIUM 114 mmol/L (136-145)
[2019-07-17] MEDS ORDERED: NON-FORMULARY MED (Fluticasone/Umeclidin/Vilanter [Trelegy Ellipta 100-62.5-25] 1 PUFF) INH SCH (07:30)
[2019-07-17] MEDS ORDERED: MARINOL PO SCH (09:00)
[2019-07-17] MEDS ORDERED: PRILOSEC PO SCH (09:00)
[2019-07-17] MEDS ORDERED: CELEBREX PO SCH (09:00)
[2019-07-17] MEDS: NEURONTIN PO SCH ×3 (09:11→21:23)
[2019-07-17] MEDS: FLEXERIL PO SCH ×3 (09:12→16:40)
[2019-07-17] MEDS: NICODERM PATCH TD SCH (09:12)
[2019-07-17] MEDS: LIORESAL PO SCH ×3 (09:12→21:23)
[2019-07-17] MEDS: ATIVAN PO PRN ×2 (10:13→22:16)
[2019-07-17] MEDS ORDERED: NACL 3% 500 ML IV SCH ×2 (12:30)
[2019-07-17] MEDS ORDERED: ZOFRAN IV PRN (13:54)
[2019-07-17] MEDS ORDERED: FLU VACCINE IM ONE (14:05)
--- NOTE | 2019-07-17 15:52 | PROVIDER PROGRESS NOTE ---
Progress Note Chief complaint: I fell out HPI: Ms. Ramirez is a 63-year-old white female with a past medical history of breast cancer s/p chemo and radiation that resulted in a left nephrectomy and she found out last week she has stage 4 lung cancer with metastasis. She has had general malaise for several months with a low appetite and nausea and vomiting. She told me her son was with her and was helping her get out of bed when she had a syncopal episode with loss of consciousness. The son called 911 and EMS brought her to the ED. Last week she was treated for walking pneumonia with a gamboa colored productive cough. Past medical history: breast cancer in remission 4 years, stage 4 lung cancer with Mets, hypertension, COPD, emphysema, recent pneumonia. Past surgical: hysterectomy, left nephrectomy after chemo, appendectomy, bunion removal, knee surgery Social history: Lives at home with significant other. Admits to smoking cigarettes, occasional alcohol, denies illicit drug use. Family history: mother positive for cancer and hypertension. Father early in car wreck. Allergies: butorphanol tartrate Home medications: Baclofen, celecoxib, cyclobenzaprine hcl, Marinol, trelegy ellipta inhaler, neurontin, norco-10, lorazepam, Prilosec, zofran, Chantix, quetiapine fumarate. Review of systems: neurological: admits to syncopal episode with loss of consciousness. Denies confusion. Eyes: denies blurriness, dryness, change visual cutie. ENT: denies tinnitus or change in hearing. Integumentary: denies color change, rash, itching. Respiratory: admits to increase shortness of breath and productive cough with 10 speed them. Denies orthopnea. Cardiovascular: denies chest pain or palpitations. G.I.: denies constipation. Admits to nausea and vomiting. : no change in urine frequency, color, or flow. Endocrine: denies excessive thirst or hunger. Musculoskeletal, admits to general increased weakness. Admits to left hip pain. Labs: WBC 3.18, hemoglobin 12.7, hematocrit 37.1, platelet count 175, sodium 114, potassium 3.9, chloride 82, carbon dioxide 25, anion gap 7, BUN 13, creatinine 0.4, calcium 8.6. Urinalysis: 1+ protein, 3+ blood, 2+ bacteria, yeast present, random sodium 13. Imaging: Head CT without contrast impression no hemorrhage and old left lacunar infarct. Physical exam: vitals. Temperature 97.6, pulse 87, respirations 18, blood pressure 146/79, 02 sat 99% on room air. General: chronic ill white female sitting up eating breakfast in no acute distress HEENT: atraumatic, normocephalic, pupils equal and reactive, mucous membranes dry, trachea midline SKIN: warm and dry Neck: supple, no jvd observed Cardiovascular: s1s2 regular rate and rhythm with a gallop. Respiratory: clear with diminished right base. Abdominal: soft, nontender, no distended, bowel sounds active. : non inspected Extremities: no clubbing, cyanosis, or edema. Neurologic: alert and oriented to person, place, and time. Assessment and plan: Chronic kidney disease stage1 with a solitary functioning kidney. Creatinine normal. Will monitor. Hyponatremia. Random sodium 13 yesterday. Awaiting osmolality. We are going to discontinue celecoxib and quetiapine. Strict fluid intake. Will give 3% saline bolus and recheck sodium level. Nutrition. Improving. Currently eating breakfast.
--- NOTE | 2019-07-17 19:06 | PROGRESS NOTE ---
DATE: 07/17/2019 SUBJECTIVE: Ms. Henry is a 63-year-old, female who is known to have breast cancer status post bilateral mastectomy, chemo and radiation, which resulted in a left nephrectomy. She has just recently been diagnosed with stage IV left lung cancer. She has been having generalized weakness and malaise, some nauseation and vomiting, came to the emergency room yesterday because of syncopal episode. After presenting, she was evaluated in [place]. Vitals seems to be okay. I do not see any orthostatic vitals were done at the time. She was admitted to [place] for medical care. Her initial chemistry did reveal a sodium of 118. It improved to 123. It has gradually been declining to 114 and this afternoon is up to 118. OBJECTIVE: General: Ms. Henry is a 63-year-old, female. She is in bed. No distress. HEENT: Mucosa is slightly dry. Anicteric. Acyanotic. Neck: Supple. Chest: Air entry is bilaterally reduced and expiratory distant wheezing. Cardiovascular: Regular rate and rhythm. There is a bilateral mastectomy. Abdomen: Soft. Extremities: No pedal edema. Central Nervous System: Patient is awake, alert, oriented. LABORATORY DATA: WBC 3.18, hemoglobin is 12.7, platelet count of 175,000. Chemistry is also reviewed. Sodium of 118, rest of chemistry is unremarkable. ASSESSMENT: 1. Syncopal episode at home, presumably due to vasovagal versus orthostatic hypotension. Unfortunately, there was no orthostatic vitals on admission. We will get now 1 now. The patient denies any dizziness or any orthostatic symptoms at this point. 2. Severe hyponatremia. Initial urine sodium was 52. There was no osmolarity with it, however SIADH is most likely. It looked like Ms. Henry was given a couple liters of fluid. However, her sodium did not really improve. It looks like it actually was trending low. It is documented in the nephrology progress note that she was given 3%. For now, she is fluid restricted. We are going to follow up with her electrolytes including the urine as well. Ms. Henry could have SIADH induced hyponatremia, complicated with medication side effects, celecoxib and quetiapine have been advised to be withheld. 3. Metastatic stage IV lung cancer. 4. History of bilateral history of breast cancer status post bilateral mastectomy. 5. Left nephrectomy. cc: Alfonso Braxton MD [facility]OSPITALMerlin
--- NOTE | 2019-07-17 20:52 | PROGRESS NOTE ---
DATE: 07/17/2019 SUBJECTIVE: The patient is actually a little more alert and awake today, than she was yesterday. She denies any new complaints. PHYSICAL EXAMINATION: Temperature 97 degrees, pulse 88, respiratory rate 18, BP 142/89.General: Patient is awake. She is in no respiratory distress. HEENT: Normocephalic. Neck: Supple. Cardiovascular: Regular rate. Chest: Clear. Abdomen: Soft, nondistended. Extremities: Moves all extremities. Neurologic: No focal changes. ASSESSMENT: 1. Hyponatremia. I feel as though she has syndrome of inappropriate antidiuretic hormone secretion (SIADH), although her labs are still pending. We did try fluid, normal saline yesterday, and her sodium actually worsened. We have consulted Dr. Jasmine, as unfortunately at this point, I certainly feel as though she may need 3% saline. 2. Hypertension. 3. Chronic obstructive pulmonary disease. 4. History of breast cancer. 5. History of metastatic lung cancer. 6. Chronic pain. 7. Others. PLAN: We are going to, as noted, consult Dr. Jasmine for assistance with her significant hyponatremia. As I am unaware of her baseline neurologic status, I do not feel as though she is oriented enough to make a decision for DNR currently, as each time I have spoken with her, she has been somewhat confused. We are going to transfer her to [facility] so that Nephrology can more easily participate in her care. cc: Manuel De La O MD
[2019-07-17] MEDS ORDERED: SEROQUEL PO SCH (21:00)
[2019-07-17] MEDS ORDERED: NACL 3% 500 ML IV ONE (21:08)
[2019-07-17] MEDS: MARINOL PO SCH (22:01)
[2019-07-18 04:36] LABS: HEMATOCRIT 36.1 % (37.0-47.0); HEMOGLOBIN 12.7 g/dL (12.0-16.0); MCH 31.4 PG (27-31); MCHC 35.2 g/dL (33-37); MCV 89.1 FL (81-99); MPV 9.7 FL (7.4-10.4); RBC 4.05 XMIL (4.2-5.4); RDW 12.3 % (11.5-14.5); WBC 2.4 X1000 (4.8-10.8)
[2019-07-18 05:15] LABS: AGAP 14; ALBUMIN 2.9 g/dL (3.5-5.0); BUN 12 mg/dL (8-22); CALCIUM 8.2 mg/dL (8.8-10.2); CHLORIDE 89 mmol/L (98-107); COSMO 247; CREATININE 0.8 mg/dL (0.5-0.9); ESTIMATED GFR > 60; GLUCOSE 82 mg/dL (70-104); PHOSPHORUS 3.5 mg/dL (2.7-4.5); POTASSIUM 4.5 mmol/L (3.5-5.1); SODIUM 123 mmol/L (136-145); TCO2 20 mmol/L (25-35)
[2019-07-18] MEDS: PRILOSEC PO SCH (06:04)
[2019-07-18] MEDS: NORCO-10 PO PRN ×3 (06:27→22:23)
[2019-07-18] MEDS: NEURONTIN PO SCH ×3 (09:23→22:22)
[2019-07-18] MEDS: FLEXERIL PO SCH ×3 (09:24→22:22)
[2019-07-18] MEDS: NON-FORMULARY MED (Fluticasone/Umeclidin/Vilanter [Trelegy Ellipta 100-62.5-25] 1 PUFF) INH SCH (09:25)
[2019-07-18] MEDS: NICODERM PATCH TD SCH (09:25)
[2019-07-18] MEDS: LIORESAL PO SCH (09:27)
[2019-07-18] MEDS: MARINOL PO SCH ×2 (09:40→22:22)
[2019-07-18] MEDS: ATIVAN PO PRN ×2 (10:13→22:22)
--- NOTE | 2019-07-18 15:16 | PROVIDER PROGRESS NOTE ---
Progress Note Subjective: patient lying in bed resting, aroused to verbal stimuli. Denies any uremic complaints. Objective: vitals. Temp 97.9, pulse 87, respiration 16, blood pressure 145/67, O2 sat 99% on room air. General: chronic ill white female lying in bed in no acute distress HEENT: atraumatic, normocephalic, pupils equal and reactive, mucous membranes dry, trachea midline SKIN: warm and dry Neck: supple, no jvd observed Cardiovascular: s1s2 regular rate and rhythm with a gallop. Respiratory: clear with diminished right base. Abdominal: soft, nontender, no distended, bowel sounds active. : non inspected Extremities: no clubbing, cyanosis, or edema. Neurologic: alert and oriented to person, place, and time. Labs: WBC 2.40, hemoglobin 12.7, hematocrit 36.1, platelet count 149, sodium 123, potassium 425, 489, carbon dioxide 20, BUN 12, creatinine 0.8, calcium 8.2, phosphorus 3.5. Intake 796, output 570. Impression: Chronic kidney disease stage1 with a solitary functioning kidney. Creatinine normal. Will monitor. Hyponatremia. Improved. Still Awaiting osmolality. Continues restricted fluid intake. Likely SIADH from lung cancer. Nutrition. Improving.
--- NOTE | 2019-07-18 16:24 | PROGRESS NOTE ---
DATE: 07/18/2019 SUBJECTIVE: Today, Ms. Ramirez refers to be doing a little better. She feels slightly stronger. She just got some medication for pain, and she was sleeping. OBJECTIVE: Vital Signs: Blood pressure 118/66, pulse 95, respirations 16, and temperature is 97.8 degrees. General: Ms. Ramirez is a 63-year-old female. She is in bed in no distress. Mucosa is pink and moist. Anicteric. Acyanotic. Neck: Supple. Chest: Good air entry bilaterally. A few distant expiratory wheezing. Cardiovascular: Regular rate and rhythm. There is bilateral mastectomy. Abdomen: Soft, nontender. Bowel sounds present. Extremities: No pedal edema. MOLDING MANAGER: Patient is sleepy but easily arousable and conversational. Follows commands. LABORATORY DATA: WBC is 2.40, hemoglobin is 12.7, and platelet count of 149,000. Chemistries: Sodium 123, potassium 4.5, chloride 89, and bicarb is 20. ASSESSMENT: 1. Syncope at home, presumably vasovagal reaction versus orthostatic hypotension. 2. Severe hyponatremia, most likely due to SIADH related to her lung malignancy. 3. Metastatic stage IV lung cancer. 4. History of breast cancer status post bilateral mastectomy. 5. Left nephrectomy. 6. Protein calorie malnutrition with albumin of 2.9. The patient has been started on nutritional supplements. For now, I think Ms. Ramirez is doing a lot better. Sodium has gone up to 122. We will continue to monitor this. She is still on fluid restriction, and we will follow up with further recommendations from Nephrology. cc: MD MICK Rhoades
[2019-07-19] MEDS: NORCO-10 PO PRN ×3 (03:35→21:58)
[2019-07-19] MEDS: PRILOSEC PO SCH (06:30)
[2019-07-19 07:24] LABS: AGAP 12; ALBUMIN 3.2 g/dL (3.5-5.0); BUN 17 mg/dL (8-22); CALCIUM 8.7 mg/dL (8.8-10.2); CHLORIDE 93 mmol/L (98-107); COSMO 259; CREATININE 0.6 mg/dL (0.5-0.9); ESTIMATED GFR > 60; GLUCOSE 106 mg/dL (70-104); PHOSPHORUS 2.5 mg/dL (2.7-4.5); POTASSIUM 4.1 mmol/L (3.5-5.1); SODIUM 128 mmol/L (136-145); TCO2 23 mmol/L (25-35)
[2019-07-19] MEDS: NEURONTIN PO SCH ×4 (09:25→21:57)
[2019-07-19] MEDS: MARINOL PO SCH ×2 (09:25→21:58)
[2019-07-19] MEDS: FLEXERIL PO SCH ×3 (09:29→20:43)
[2019-07-19] MEDS: ATIVAN PO PRN (13:48)
[2019-07-19] MEDS: NICODERM PATCH TD SCH (13:48)
--- NOTE | 2019-07-19 14:56 | PROGRESS NOTE ---
DATE: 07/19/2019 SUBJECTIVE: This morning Ms. Henry refers to be doing okay. Denies any new complaints. OBJECTIVE: Vital signs: Blood pressure is 117/66, pulse of 108, respirations 16, temperature 97.9 degrees. General: Ms. Henry is a 63-year-old, female. She is in bed, no distress. HEENT: Mucosa is pink and moist. Anicteric. Acyanotic. Neck: Supple. Chest: Good air entry bilateral. A few end-expiratory wheezing. Chest wall patient has bilateral mastectomies. Cardiovascular: Regular rate and rhythm. GI: Abdomen is soft, nontender. Bowel sounds present. Extremities: No pedal edema. ASSOCIATE BIOLOGICAL SALES: Patient is awake, alert, oriented. LABORATORY DATA: No CBC for this morning. Chemistry shows sodium is up to 128. Rest of chemistry is unremarkable. Phosphorus is 2.5 which will be replaced. ASSESSMENT: 1. Syncope at home, presumably vasovagal reaction versus orthostatic hypotension improved. 2. Severe hyponatremia secondary to syndrome of inappropriate antidiuretic hormone secretion related to her lung malignancy. 3. Suspected metastatic stage IV left upper lobe lung cancer. The patient was pending Pulmonary evaluation on outpatient basis and possible bronchoscopy. She follows up with Dr. Leigh. We will get him to evaluate her while she is in hospital. 4. Left nephrectomy. Noted. 5. Protein-calorie malnutrition. The patient is on nutritional supplement. 6. Hypophosphatemia. We will replace. 7. Chronic pain syndrome. Patient is on pain medications. PLAN: In general, I think Ms. Henry is doing a lot better. Sodium has improved to 128. She said her head feels slightly swooshy when she gets up to use the restroom, but she has been advised to first of all, sit up and get her bearings before she starts to walk around. We are going to continue with the fluid restriction. I have discussed the case with the door liner on board and the plan is to continue the fluid restriction and follow up with the sodium. cc: Alfonso Braxton MD [facility]
--- NOTE | 2019-07-19 20:52 | CONSULTATION ---
DATE OF CONSULTATION: 07/19/2019 REQUESTING PROVIDER: Alfonso Braxton MD REASON FOR CONSULTATION: Left upper lobe mass. HISTORY OF PRESENT ILLNESS: This is a 63-year-old female with a medical history of COPD, gastroesophageal reflux disease, anxiety, chronic kidney disease, thyroid nodules, breast cancer and lung cancer. She presented to the ER via EMS on 07/15/2019 after having a syncopal episode at home. Initial workup in the ER revealed hyponatremia with sodium 118. The patient currently is sitting on the bed eating cracker with peanut butter. Patient's family are at the bedside. She reported that she had a chest CT done last month, which showed a left upper lobe mass. Then she went to see Dr. Vaughn who ordered PET scan, and she was told recently by Dr. Vaughn that she has lung cancer, and Dr. Vaughn apparently referred her to our office yesterday or day before for the bronchoscopy. The patient reports that she has occasional hemoptysis for a long time, recent weight loss of about 12 pounds, chronic poor appetite and general weakness. She states she just starts taking the Chantix recently for smoking cessation and some other medicine to help her appetite. She has no significant cough, wheezing, fever, chill, chest pain, palpitation, pedal edema, bowel habit change, urination difficulty or discomfort. PAST MEDICAL AND SURGICAL HISTORY: 1. COPD on Trilogy and albuterol at home. 2. Gastroesophageal reflux disease. 3. Anxiety. 4. Chronic kidney disease stage 1 with left nephrectomy. 5. Thyroid nodules. 6. Breast cancer status post bilateral mastectomy. 7. Lung cancer stage IV, recently diagnosed by Dr. Vaughn after a PET scan, has no biopsy done so far. SOCIAL HISTORY: The patient used to smoke 1 pack per day. She just starts smoking cessation recently with Chantix. She used to drink alcohol and has quit it recently. She has no history of illicit drug use. She lives at home with a roommate. FAMILY HISTORY: The patient's mother had melanoma and breast cancer. The patient's grandma had some kind of female cancer. The patient is unknown about her father. ALLERGIES: Butorphanol tartrate and baclofen. REVIEW OF SYSTEMS: A 10-point review of systems was conducted, and the pertinent is listed within the HPI, otherwise noncontributory. PHYSICAL EXAMINATION: Vital Signs: Temperature 97.9, blood pressure 117/66, pulse 108, respiratory rate 16, oxygen saturation 98% on room air. General: The patient is sitting on bed. No acute distress noted. She is eating cracker with peanut butter at this time. She states that she is very hungry. She appears mildly malnourished. The patient's family are at the bedside. HEENT: Atraumatic, normocephalic. Trachea midline. Mucosa pink and moist. Respiratory: Even and unlabored. Symmetrical excursion. Clear to auscultation bilaterally. Cardiovascular: Regular rate and rhythm. Gastrointestinal: Soft, nontender, nondistended. Normoactive bowel sounds in all 4 quadrants. Extremities: No pedal edema noted. Neurologic: Alert and oriented x4. Speech fluent. Follows commands. LABORATORY DATA: Sodium 128, potassium 4.1, chloride 93, carbon dioxide 23, BUN 17, creatinine 0.6, glucose 106. ASSESSMENT: This is a 63-year-old female with a medical history of chronic obstructive pulmonary disease, gastroesophageal reflux disease, anxiety, chronic kidney disease, thyroid nodules, breast cancer, and lung cancer. She has been admitted to our facility since 07/16/2019 with a reported syncopal episode and hyponatremia. 1. Lung cancer stage IV, metastatic to the liver and spines: recently diagnosed by Dr. Vaughn; pending on biopsy. 2. Hyponatremia. 3. Chronic obstructive pulmonary disease. No acute exacerbation noted at this time. PLAN: Dr. Leigh already reviewed the chest CT with contrast on 06/14/2019. He notices that the left upper lobe abnormality is in a location difficult for regular biopsy. and probably best route is resection biopsy. He would like to see the PET scan images and discuss with this patient about our plan by himself. If patient will stay until next Monday, Dr. Leigh will see her then, but if patient is going to be discharged over the weekend, Dr. Leigh will see her outpatient in the office as early as possible. I also emphasize the importance of smoking cessation with the patient. She shows understanding and agreement. She would like to continue taking Chantix. Thank you for the courtesy of this consult. Dictated by KATLIN Stockton for Reece Leigh MD cc: KATLIN Stockton MD [facility]
[2019-07-20] MEDS: NORCO-10 PO PRN ×4 (01:52→22:22)
[2019-07-20] MEDS: ATIVAN PO PRN (01:52)
[2019-07-20] MEDS: PRILOSEC PO SCH (06:20)
[2019-07-20 07:56] LABS: AGAP 11; ALBUMIN 3.2 g/dL (3.5-5.0); BUN 20 mg/dL (8-22); CALCIUM 8.8 mg/dL (8.8-10.2); CHLORIDE 94 mmol/L (98-107); COSMO 262; CREATININE 0.6 mg/dL (0.5-0.9); ESTIMATED GFR > 60; GLUCOSE 81 mg/dL (70-104); PHOSPHORUS 2.7 mg/dL (2.7-4.5); POTASSIUM 4.2 mmol/L (3.5-5.1); SODIUM 130 mmol/L (136-145); TCO2 25 mmol/L (25-35)
[2019-07-20] MEDS: NICODERM PATCH TD SCH (10:13)
[2019-07-20] MEDS: MARINOL PO SCH ×2 (10:13→22:22)
[2019-07-20] MEDS: NEURONTIN PO SCH ×3 (10:13→22:21)
[2019-07-20] MEDS: FLEXERIL PO SCH ×3 (10:13→17:16)
--- NOTE | 2019-07-20 16:45 | PROGRESS NOTE ---
DATE: 07/20/2019 SUBJECTIVE: This morning Ms. Henry refers to be doing okay. A lot stronger, but she has pains in her back and the left hip. OBJECTIVE: Vital signs: Blood pressure 137/69, pulse of 92, respirations 16 and temperature is 97.9 degrees. The patient is saturating 99% on room air. General exam: Ms. Henry is a 63-year- old, female. She is in bed in no distress. HEENT: Mucosa is pink and moist. Anicteric. Acyanotic. Neck: Supple. Chest: Good air entry bilateral. There were no crepitations. Cardiovascular: Regular rate and rhythm. Abdomen: Soft, nontender. Bowel sounds present. Extremities: No pedal edema. RETURNED GOODS SORTER: The patient is awake, alert, oriented. No focal neurological deficit. LABORATORY DATA: Sodium is 130, potassium 4.2, chloride 94, bicarbonate 23. Rest of chemistry is completely within normal range. ASSESSMENT: 1. Syncope at home presumed to be vasovagal reaction versus orthostatic hypotension, improved. 2. Severe hyponatremia on admission secondary to syndrome of inappropriate antidiuretic hormone, most likely related to the lung malignancy. 3. Suspected metastatic stage IV left upper lobe lung cancer. The patient is pending bronchoscopy Monday. 4. Protein calorie malnutrition. Patient is on nutritional supplement. Dietitian is on board. 5. Left nephrectomy with solitary kidney. 6. Hypophosphatemia, replaced. 7. Chronic pain syndrome. Aware. PLAN: So, in general, I think Ms. Henry is doing a lot better. Denies any new complaints. Has not had any more syncopal episodes. Sodium has almost normalized. We are pending Pulmonary Medicine evaluation on Monday for bronchoscopy. We will continue with fluid restriction. cc: Alfonso Braxton MD
[2019-07-21] MEDS: NORCO-10 PO PRN ×3 (03:30→19:47)
[2019-07-21] MEDS: NON-FORMULARY MED (Fluticasone/Umeclidin/Vilanter [Trelegy Ellipta 100-62.5-25] 1 PUFF) INH SCH (03:32)
[2019-07-21 07:27] LABS: AGAP 11; ALBUMIN 3.4 g/dL (3.5-5.0); BUN 22 mg/dL (8-22); CALCIUM 9.1 mg/dL (8.8-10.2); CHLORIDE 92 mmol/L (98-107); COSMO 263; CREATININE 0.6 mg/dL (0.5-0.9); ESTIMATED GFR > 60; GLUCOSE 83 mg/dL (70-104); PHOSPHORUS 3.6 mg/dL (2.7-4.5); POTASSIUM 4.8 mmol/L (3.5-5.1); SODIUM 130 mmol/L (136-145); TCO2 27 mmol/L (25-35)
[2019-07-21] MEDS: NEURONTIN PO SCH ×3 (08:36→19:47)
[2019-07-21] MEDS: MARINOL PO SCH ×2 (08:36→19:46)
[2019-07-21] MEDS: FLEXERIL PO SCH ×3 (08:37→19:47)
[2019-07-21] MEDS: NICODERM PATCH TD SCH (08:37)
[2019-07-21] MEDS: PRILOSEC PO SCH (08:39)
--- NOTE | 2019-07-21 10:00 | PROGRESS NOTE ---
DATE: 07/21/2019 SUBJECTIVE: This morning, Ms. Ramirez refers to be fairly stable. No new complaints. She is awaiting bronchoscopy tomorrow with Pulmonary Medicine. OBJECTIVE: Vital Signs: Blood pressure is 122/65, pulse of 91, respirations 16, temperature 98.8 degrees. General: Ms. Ramirez is a 63-year-old, female. She is in bed. No distress. HEENT: Mucosa is pink and moist. Anicteric. Acyanotic. Neck: Supple. Chest: Good air entry bilaterally. No crepitations. No rhonchi. Cardiovascular: Regular rate and rhythm. No murmurs, no rubs, no gallops. GI: Abdomen is soft. Extremities: No pedal edema. MEDICAL STAFF CREDENTIALING COORDINATOR: The patient is awake, alert, and oriented. LABORATORY DATA: Sodium is up to 130, potassium 4.8, chloride 92, rest of chemistry is completely unremarkable. ASSESSMENT: 1. Severe hyponatremia on admission secondary to syndrome of inappropriate antidiuretic hormone related to her lung malignancy. Sodium has significantly improved. The patient continues to be on fluid restriction. 2. Suspected metastatic stage IV left upper lobe lung cancer. The patient is pending bronchoscopy with biopsy tomorrow. 3. Syncope at home, improved. 4. Protein calorie malnutrition. The patient is on nutritional supplement. Dietitian is on board. 5. Left nephrectomy. The patient is status post left nephrectomy. 6. Hypophosphatemia, replaced. 7. Chronic pain syndrome. Aware. In general, I think Ms. Ramirez is doing a lot better. She has not had any more syncopal episode. Her sodium has almost normalized. She continues to be in fluid restriction, and we are pending Pulmonary Medicine to do a bronchoscopy tomorrow for biopsies. cc: Alfonso Braxton MD
[2019-07-22] MEDS: NEURONTIN PO SCH ×4 (02:24→22:03)
[2019-07-22] MEDS: NON-FORMULARY MED (Fluticasone/Umeclidin/Vilanter [Trelegy Ellipta 100-62.5-25] 1 PUFF) INH SCH (02:24)
[2019-07-22] MEDS: FLEXERIL PO SCH ×4 (02:24→22:04)
[2019-07-22] MEDS: MARINOL PO SCH ×3 (02:24→22:03)
[2019-07-22] MEDS: NORCO-10 PO PRN ×3 (04:20→16:12)
[2019-07-22] MEDS: ATIVAN PO PRN ×2 (06:12→18:47)
[2019-07-22] MEDS: PRILOSEC PO SCH (06:12)
[2019-07-22 06:41] LABS: HEMATOCRIT 34.9 % (37.0-47.0); HEMOGLOBIN 11.7 g/dL (12.0-16.0); MCH 31.2 PG (27-31); MCHC 33.5 g/dL (33-37); MCV 93.1 FL (81-99); MPV 9.8 FL (7.4-10.4); RBC 3.75 XMIL (4.2-5.4); RDW 13.2 % (11.5-14.5); WBC 4.48 X1000 (4.8-10.8)
[2019-07-22 07:10] LABS: AGAP 12; ALBUMIN 3.3 g/dL (3.5-5.0); BUN 17 mg/dL (8-22); CALCIUM 8.8 mg/dL (8.8-10.2); CHLORIDE 90 mmol/L (98-107); COSMO 256; CREATININE 0.6 mg/dL (0.5-0.9); ESTIMATED GFR > 60; GLUCOSE 80 mg/dL (70-104); PHOSPHORUS 3.7 mg/dL (2.7-4.5); POTASSIUM 4.6 mmol/L (3.5-5.1); SODIUM 127 mmol/L (136-145); TCO2 25 mmol/L (25-35)
[2019-07-22] MEDS ORDERED: SAMSCA PO ONE (07:26)
[2019-07-22] MEDS: NICODERM PATCH TD SCH (09:42)
--- NOTE | 2019-07-22 12:09 | PROGRESS NOTE ---
DATE: 07/22/2019 SUBJECTIVE: This morning Ms. Ramirez refers to be doing well. Some generalized pains, which is normal for her chronic pain syndrome. She is awaiting for her bronchoscopy. I have however spoke with Dr. Leigh. He thinks it is going to be extremely hard for bronchoscopy to be done because of the location of the lesion in that he has discussed with Interventional Radiology, and they plan to do a CT-guided biopsy of the liver lesion. OBJECTIVE: Vital signs: Blood pressure is 139/71, pulse of 77, respiration is 20, temperature is 98.3 degrees. General exam: Ms. Henry is a 63-year-old, female. She is in bed in no distress. HEENT: Mucosa is pink and moist. Anicteric. Acyanotic. Neck: Supple. Chest: Clear to auscultation with a few distant wheezing. Cardiovascular: Regular rate and rhythm. No murmurs, no rubs, no gallops. GI/Abdomen: Soft, nontender. Bowel sounds were present. Extremities: No pedal edema. OPERATING ROOM SURGICAL TECHNICIAN: Patient is awake, alert, oriented. There was no focal neurological deficit. LABORATORY DATA: WBC is 4.48, hemoglobin 11.7, platelet count of 178. Chemistry shows sodium of 127. ASSESSMENT: 1. Severe symptomatic hyponatremia on admission secondary to syndrome of inappropriate antidiuretic hormone, most likely related to her lung malignancy. Sodium level has significantly improved over the hospital course. She continues to be on fluid restriction. We are going to give her a dose of [place] this morning. 2. Suspected metastatic stage IV left upper lung cancer. The patient had a plan for bronchoscopy this morning. However, Pulmonary Medicine is going to be extremely difficult to reach this lesion by bronchoscopy, so they have discussed with Interventional Radiology and there is a high probability to get a liver lesion biopsy under CT scan. 3. Syncope at home, improved. 4. Protein calorie malnutrition. Patient is on nutritional supplement. Dietitian is on board. 5. History of left nephrectomy noted. 6. Hypophosphatemia, replaced. 7. Chronic pain syndrome. PLAN: So in general, Ms. Ramirez is doing well. She has been up and walking around. She presented because of dizziness, generalized weakness and occasional syncopal episode, most all related to her severe hyponatremia on admission. The patient's sodium has significantly improved. We think it is SIADH related to her lung cancer. She is pending a tissue diagnosis of the lung cancer. There was a plan for bronchoscopy, but that has been changed. The patient has a CT- guided liver biopsy to be done tomorrow. I think once that is done, patient can be discharged and follow up with her oncologist, Dr. Vaughn. cc: Alfonso Braxton MD
[2019-07-23] MEDS: NORCO-10 PO PRN ×4 (03:11→20:19)
[2019-07-23] MEDS: PRILOSEC PO SCH (06:28)
[2019-07-23 07:43] LABS: AGAP 12; ALBUMIN 3.6 g/dL (3.5-5.0); BUN 20 mg/dL (8-22); CALCIUM 9.4 mg/dL (8.8-10.2); CHLORIDE 97 mmol/L (98-107); COSMO 274; CREATININE 0.7 mg/dL (0.5-0.9); ESTIMATED GFR > 60; GLUCOSE 124 mg/dL (70-104); PHOSPHORUS 4.1 mg/dL (2.7-4.5); POTASSIUM 4.1 mmol/L (3.5-5.1); SODIUM 135 mmol/L (136-145); TCO2 26 mmol/L (25-35)
[2019-07-23] MEDS: NEURONTIN PO SCH ×3 (10:09→20:17)
[2019-07-23] MEDS: FLEXERIL PO SCH ×3 (10:09→20:17)
[2019-07-23] MEDS: NICODERM PATCH TD SCH (10:09)
[2019-07-23] MEDS: MARINOL PO SCH ×2 (10:16→20:17)
--- NOTE | 2019-07-23 10:56 | Diag Imaging Result Doc PS360 ---
CT abdomen with intravenous contrast, CT-guided liver biopsy - 07/22/2019 INDICATION: Mets to liver. Discussed with Dr. Wilson. TECHNIQUE: The risks and benefits of the procedure were discussed with the patient. All questions were answered. Written and verbal informed consent was obtained. Overlying skin was prepped and draped in sterile fashion. Anesthesia was achieved with injection of 10 cc of 1% lidocaine. COMPARISON: 07/10/2019 FINDINGS: A CT with intravenous contrast was performed to better delineate the liver masses. This demonstrated numerous hypoenhancing masses filling the liver, replacing about 50% of the liver volume. Stable extremely atrophic left kidney. There is moderate constipation. Otherwise the exam appears normal. The anterior right lobe of the liver was biopsied with the 17/18 gauge 6/11 cm Temno biopsy needle set. Eight biopsy specimens were obtained. The needles were withdrawn intact. The patient reported no symptoms from the procedure. IMPRESSION: Innumerable hepatic metastases. Successful and uncomplicated CT-guided liver mass biopsy. Electronically signed by Amanuel Eastman 07/23/2019 10:54 AM
[2019-07-23] MEDS: ATIVAN PO PRN ×2 (13:58→21:11)
[2019-07-23] MEDS: MYCOSTATIN SUSP PO SCH ×2 (20:12→21:05)
[2019-07-24] MEDS: PRILOSEC PO SCH ×2 (04:36→06:13)
[2019-07-24] MEDS: NORCO-10 PO PRN ×2 (04:37→08:31)
[2019-07-24 06:53] LABS: BASO# 0.02 X1000 (0.0-0.2); BASO% 0.4 % (0.0-0.8); EOS# 0.13 X1000 (0.0-0.7); EOS% 2.5 % (0.0-10.0); HEMATOCRIT 37.9 % (37.0-47.0); HEMOGLOBIN 12.4 g/dL (12.0-16.0); LYMPH% 15.2 % (20.5-51.1); MCHC 32.7 g/dL (33-37); MCV 91.8 FL (81-99); MONO# 0.58 X1000 (0.11-0.59); MPV 9.9 FL (7.4-10.4); NEUT# 3.75 X1000 (1.4-6.5); NEUT% 70.9 % (42.2-75.2); PLT 220 X1000 (130-400); RBC 4.13 XMIL (4.2-5.4); RDW 13.1 % (11.5-14.5); WBC 5.28 X1000 (4.8-10.8)
[2019-07-24 07:16] LABS: AGAP 10; BUN 26 mg/dL (8-22); CALCIUM 9.6 mg/dL (8.8-10.2); CHLORIDE 92 mmol/L (98-107); COSMO 263; CREATININE 0.7 mg/dL (0.5-0.9); ESTIMATED GFR > 60; GLUCOSE 86 mg/dL (70-104); POTASSIUM 4.4 mmol/L (3.5-5.1); SODIUM 129 mmol/L (136-145); TCO2 27 mmol/L (25-35)
[2019-07-24] MEDS: FLEXERIL PO SCH ×3 (08:31→22:10)
[2019-07-24] MEDS: MYCOSTATIN SUSP PO SCH ×4 (08:31→22:10)
[2019-07-24] MEDS: NICODERM PATCH TD SCH (08:31)
[2019-07-24] MEDS: MARINOL PO SCH ×2 (08:31→22:10)
[2019-07-24] MEDS: NEURONTIN PO SCH ×3 (08:31→22:11)
[2019-07-24] MEDS ORDERED: SAMSCA PO ONE (11:07)
[2019-07-24] MEDS: ATIVAN PO PRN (11:54)
[2019-07-25] MEDS ORDERED: NORCO-5 PO ONE ×2 (03:11)
[2019-07-25] MEDS: PRILOSEC PO SCH (06:00)
[2019-07-25 06:58] LABS: BASO# 0.03 X1000 (0.0-0.2); BASO% 0.8 % (0.0-0.8); EOS% 2.5 % (0.0-10.0); HEMATOCRIT 40.8 % (37.0-47.0); HEMOGLOBIN 13.5 g/dL (12.0-16.0); IMM GRAN# 0.02 X1000 (0.0-0.04); IMM GRAN% 0.5 % (0.0-0.5); INR 0.98; LYMPH# 0.66 X1000 (1.2-3.4); LYMPH% 16.7 % (20.5-51.1); MCH 30.1 PG (27-31); MCHC 33.1 g/dL (33-37); MCV 91.1 FL (81-99); MONO% 12.7 % (1.7-9.3); MPV 9.7 FL (7.4-10.4); NEUT# 2.64 X1000 (1.4-6.5); NEUT% 66.8 % (42.2-75.2); PLT 261 X1000 (130-400); RBC 4.48 XMIL (4.2-5.4); RDW 13.2 % (11.5-14.5); WBC 3.95 X1000 (4.8-10.8)
[2019-07-25 06:59] LABS: PTT 31.6 Seconds (22.3-41.8)
[2019-07-25] MEDS ORDERED: MARCAINE 0.25% PF/EPI 1:200,000 ONE (07:56)
[2019-07-25] MEDS ORDERED: NS 250 ML ONE (07:57)
[2019-07-25] MEDS ORDERED: DUONEB (A & A) INH ONE (08:16)
[2019-07-25] MEDS ORDERED: VERSED ONE (08:24)
[2019-07-25] MEDS ORDERED: FENTANYL ONE (08:24)
[2019-07-25] MEDS ORDERED: DIPRIVAN 1% ONE ×2 (08:24→08:53)
[2019-07-25] MEDS ORDERED: KEFZOL 1 GM/D5W 1 GM/50 ML IVPB ONE (08:25)
[2019-07-25 08:49] LABS: AGAP 14; BUN 18 mg/dL (8-22); CALCIUM 9.6 mg/dL (8.8-10.2); CHLORIDE 100 mmol/L (98-107); COSMO 278; CREATININE 0.7 mg/dL (0.5-0.9); ESTIMATED GFR > 60; GLUCOSE 101 mg/dL (70-104); POTASSIUM 4.5 mmol/L (3.5-5.1); SODIUM 138 mmol/L (136-145); TCO2 24 mmol/L (25-35)
[2019-07-25] MEDS ORDERED: DILAUDID ONE (09:26)
[2019-07-25] MEDS ORDERED: SODIUM CHLORIDE 0.9% 10 ML ONE (09:26)
[2019-07-25] MEDS: DILAUDID ONE ×2 (09:45→09:48)
[2019-07-25] MEDS ORDERED: ZOFRAN ONE (09:50)
--- NOTE | 2019-07-25 10:05 | Diag Imaging Result Doc PS360 ---
EXAM: CHEST-PORTABLE HISTORY: port insertion TECHNIQUE: Single view COMPARISON: 11/20/[address] from 07/10/2019 FINDINGS: There is a left subclavian portacatheter. Tip overlies the distal superior vena cava. No pneumothorax. The lungs are well expanded. No cardiomegaly. No pulmonary edema. There is a left suprahilar mass. This was seen on the recent CT of 07/10/2019 is unchanged. No pleural effusions identified. IMPRESSION: No postprocedural complication Electronically signed by Mich Helms 07/25/2019 10:02 AM
[2019-07-25] MEDS: NORCO-10 PO PRN (11:05)
[2019-07-25] MEDS: MYCOSTATIN SUSP PO SCH ×2 (11:05→15:32)
[2019-07-25] MEDS: NEURONTIN PO SCH (11:05)
[2019-07-25] MEDS: FLEXERIL PO SCH (11:05)
[2019-07-25] MEDS: MARINOL PO SCH (11:05)
[2019-07-25] MEDS: NICODERM PATCH TD SCH (11:05)
--- NOTE | 2019-07-25 11:14 | OPERATIVE NOTE ---
PROCEDURE DATE : 07/25/2019 PREOPERATIVE DIAGNOSIS: Metastatic cancer with liver replacement probable lung primary with history of breast cancer. PROCEDURE: Left internal jugular PowerPort. DESCRIPTION OF PROCEDURE: The patient was brought to the operating room. After satisfactory induction of IV and MAC anesthesia, her right and left chest were prepped and draped in the appropriate manner. Initial attempts at subclavian access were unsuccessful. In the midclavicular line 1 fingerbreadth below the clavicle, an area was infiltrated with Marcaine and Xylocaine with epinephrine. Transverse incision was made through the old port scar with a subcutaneous pocket being developed inferiorly. Hemostasis was obtained by electrocautery. The subclavian access was unsuccessful. For this reason, a counter incision was made at the base of the neck between the bellies of the sternomastoid muscle and the internal jugular vein was cannulated. Guidewire was introduced into the right atrial area of the heart. There was no pneumothorax and no ectopy. The system was tunneled between the 2 incisions, flushed with heparinized saline, and threaded down to the superior vena cava right atrial junction via a 9 Maltese introducer. It was flushed and aspirated easily. The reservoir was buried in the subcutaneous pocket and anchored to the clavipectoral fascia with 3-0 silk. The 2 incisions underwent subcutaneous closures of 3-0 Vicryl and subcuticular 4-0 Vicryl. Steri-Strips, Telfa, and OpSite were applied. She was awakened in the operating room and transferred to recovery. Estimated blood loss was less than 10 mL. cc: Anthony Zheng MD
[2019-07-25] MEDS: NON-FORMULARY MED (Fluticasone/Umeclidin/Vilanter [Trelegy Ellipta 100-62.5-25] 1 PUFF) INH SCH (12:37)
[2019-07-25 14:14] VITALS: BP 124/81
[2019-07-25] MEDS ORDERED: PERIDEX MT SCH (21:00)
--- NOTE | 2019-07-26 19:40 | DISCHARGE SUMMARY ---
ADMISSION DATE: 07/16/2019 DISCHARGE DATE: 07/25/2019 DISCHARGE DIAGNOSES: 1. Metastatic lung cancer, presumably small cell. 2. Hyponatremia, due to syndrome of inappropriate antidiuretic hormone. 3. Protein-calorie malnutrition. PROCEDURE: She had a CT-guided biopsy of her liver per Radiology. CONSULTATIONS: 1. Dr. Jasmine. 2. Dr. Anthony Zheng. 3. Dr. Miladys Vaughn. OTHER PROCEDURES: She had a Port-A-Cath placed; that was on the . Briefly, 63-year-old female. She was admitted per Dr. De La O and diagnosed with metastatic lung cancer, but did not have a biopsy. She had a low sodium at 118. MRI was negative. She was slowly corrected. Dr. Jasmine was consulted. She was given 3% and then she improved. Her urine sodium was 52. The urine osmolarity was 226 initially, but then on the it was 568. She had a urine sodium of 13 too, but there were features most consistent with SIADH, and she did actually respond somewhat to fluid restriction, but then she also required Samsca. She underwent liver biopsy because about 50% of her liver had small liver masses, and per pathology preliminarily, it looks like a small cell lung cancer. The patient was felt stable to go home. Her sodium at the time of discharge is 138. She was recommended fluid restrict. We did try to set her up for Samsca because I think she may need that long-term. DISCHARGE MEDICATIONS: 1. Neurontin 800 q.6. 2. Celecoxib 200 daily. 3. Chantix as needed. 4. Flexeril 10 t.i.d. 5. Ativan 1 b.i.d. 6. Marinol 10 b.i.d. 7. [place] p.r.n. 8. Prilosec 40 daily. 9. Seroquel 25 daily. 10. Trilogy Ellipta daily. 11. Seroquel 25 at bedtime. 12. Zofran p.r.n. DISCHARGE CONDITION: Stable. 32 minute discharge. cc: MD Miladys Robles MD Dr. Nabors Dr. Najjar
== END 2019-07-25 15:56 | disposition home or self-care (01) | DRG 644 ==
LOC: P.ED 22:54 → P.MEDSURG 07-16 04:01 → SUATTDRO 07-16 04:01 → 4N 07-17 13:40
PROVIDERS: ATTEND Internal Medicine

== ENCOUNTER 2019-09-07 11:34 | Inpatient (IN) ==
--- NOTE | 2019-09-07 12:23 | EKG Report ---
Test Performed on : 09/07/2019 12:04:14 PM Test Reason : weakness Blood Pressure : / mmHG Vent. Rate : 084 BPM Atrial Rate : 084 BPM P-R Int : 134 ms QRS Dur : 082 ms QT Int : 376 ms P-R-T Axes : 079 065 060 degrees QTc Int : 444 ms Normal sinus rhythm. Possible Left atrial enlargement Borderline ECG When compared with ECG of 15-JUL-2019 23:43, (Unconfirmed) No significant change was found Unconfirmed Result
[2019-09-07 12:27] LABS: BASO# 0.02 X1000 (0.0-0.2); BASO% 0.3 % (0.0-0.8); EOS# 0.01 X1000 (0.0-0.7); EOS% 0.1 % (0.0-10.0); HEMOGLOBIN 11.5 g/dL (12.0-16.0); IMM GRAN# 0.07 X1000 (0.0-0.04); LYMPH# 0.92 X1000 (1.2-3.4); LYMPH% 13.7 % (20.5-51.1); MCH 30.7 PG (27-31); MCHC 34.8 g/dL (33-37); MCV 88.2 FL (81-99); MONO# 0.49 X1000 (0.11-0.59); MONO% 7.3 % (1.7-9.3); MPV 10.3 FL (7.4-10.4); NEUT# 5.21 X1000 (1.4-6.5); NEUT% 77.6 % (42.2-75.2); PLT 179 X1000 (130-400); RBC 3.74 XMIL (4.2-5.4); RDW 15.4 % (11.5-14.5); WBC 6.72 X1000 (4.8-10.8)
[2019-09-07 12:32] LABS: INR 1.07; PTT 30.8 Seconds (22.3-41.8)
--- NOTE | 2019-09-07 12:37 | Diag Imaging Result Doc PS360 ---
EXAM: CHEST-2 VIEWS 09/07/2019 HISTORY: weakness TECHNIQUE: PA and lateral chest COMMENT: There is a Port-A-Cath on the left. There is hyperinflation of the lungs consistent with COPD. There is a calcified granuloma present in the left lower lobe. There are surgical clips in the right axillary region. There are calcified nodes in the aorticopulmonary window. No evidence of acute pulmonary disease is present and the heart and pulmonary vascularity are within normal limits. IMPRESSION: COPD. Electronically signed by Bashir Her 09/07/2019 12:35 PM
[2019-09-07 12:57] LABS: AGAP 14; ALB/GLOB RATIO 1.9; ALKALINE PHOSPHATASE 153 U/L (32-104); BUN 12 mg/dL (8-22); CALCIUM 8.3 mg/dL (8.8-10.2); CHLORIDE 83 mmol/L (98-107); CK PROFILE 83 U/L (24-173); COSMO 238; CREATININE 0.7 mg/dL (0.5-0.9); ESTIMATED GFR > 60; GLUCOSE 90 mg/dL (70-104); GOT 25 U/L (10-30); GPT 18 U/L (10-36); POTASSIUM 4.2 mmol/L (3.5-5.1); TCO2 21 mmol/L (25-35); TOTAL BILIRUBIN 0.29 mg/dL (0.20-1.00); TOTAL PROTEIN 6.1 g/dL (6.3-8.3)
[2019-09-07 12:58] LABS: SODIUM 118 mmol/L (136-145)
[2019-09-07] MEDS ORDERED: ZOFRAN IV ONE (13:24)
[2019-09-07] MEDS ORDERED: NS 1,000 ML IV ONE ×3 (13:24→15:48)
[2019-09-07] MEDS ORDERED: MORPHINE IV ONE (13:52)
--- NOTE | 2019-09-07 13:52 | PROVIDER DOCUMENTATION ---
This chart was entered by Ace Harvey Scribe, acting as scribe for Mita Hernandez MD. HPI-General Adult - General Chief Complaint: Weakness Stated Complaint: VOMITING/CANCER STAGE 4 Time Seen by Provider: 09/07/19 13:03 Source: patient, family Allergies/Adverse Reactions: Patient Allergies Allergy/AdvReac Type Severity Reaction Status Date / Time butorphanol tartrate * Allergy Mild NAUSEA Verified 09/07/19 13:47 [From Stadol] baclofen AdvReac Unknown Verified 09/07/19 13:47 Home Medications: Home Medication List Medication Instructions Recorded Confirmed Last Taken Type Gabapentin [Neurontin] 800 mg PO Q6HR 05/10/16 07/16/19 02/13/18 19:00 History Hydrocodone/APAP 10 mg/325 mg 1 each PO Q12H PRN PRN 02/13/18 07/16/19 02/12/18 08:00 History [[place]-10] Omeprazole [Prilosec] 40 mg PO DAILY 02/13/18 07/16/19 02/13/18 09:00 History Celecoxib 1 cap PO DAILY 07/16/19 07/16/19 Unknown History Cyclobenzaprine HCl 10 mg PO TID 07/16/19 07/16/19 Unknown History Dronabinol [Marinol] 10 mg PO BID 07/16/19 07/16/19 Unknown History Fluticasone/Umeclidin/Vilanter 1 puff INH DAILY 07/16/19 07/16/19 Unknown His tory [Trelegy Ellipta 100-62.5-25] Lorazepam 1 tab PO BID 07/16/19 07/16/19 Unknown History Ondansetron HCl [Zofran] 4 mg PO PRN PRN 07/16/19 07/16/19 Unknown History Quetiapine Fumarate 25 mg PO HS 07/16/19 07/16/19 Unknown History Varenicline Tartrate [Chantix] 1 dose PO ORDERED 07/16/19 07/16/19 Unknown History Tolvaptan [Samsca] 15 mg PO DAILY #30 tab 07/25/19 Unknown Rx - History of Present Illness -Gen Adult Nature of Presenting Problems: 63 yof presents to the ED w/ c/o N/V. pt states all last night having N/V unable to keep down Zofran ,pain medication or food/liquids down. pt states dx w/ stage 4 lung cancer spread to liver, bone etc. family states "done scan to see if spread to brain and it has not , chemo is decreasing whats in liver." pt states active chemo every 21 days ,scheduled for Mon,Tue,Wed for next tx. . pt c/o N/V, epi abd pain, body aches, weak/dizzy.Denies fevers Location of Pain/Injury: reports: abdomen (epi) Pain Radiation: reports: no radiation Quality of Pain: reports: aching Severity: reports: mild Onset/Duration: reports: 24 hours ago Timing: reports: still present Context/Activities at Onset: reports: none Modifying Factors: improves with: nothing Associated Symptoms: reports: dizziness, nausea, vomiting, weakness. denies: arm pain, back/neck pain, chest pain, constipation, diarrhea, fever/chills, shortness of breath Similar Symptoms Previously?: No Recently seen or treated by another doctor?: No Review of Systems - Adult - REVIEW OF SYSTEMS - ADULT Constitutional: denies: chills, fever Eyes: reports: no symptoms reported Ears, Nose, Mouth & Throat: reports: no symptoms reported Cardiovascular: reports: no symptoms reported Respiratory: denies: shortness of breath, wheezing Gastrointestinal: reports: see HPI, abdominal pain, nausea, vomiting. denies: constipation, diarrhea Genitourinary: reports: no symptoms reported Musculoskeletal: reports: no symptoms reported Integumentary: reports: no symptoms reported Neurological: reports: see HPI, dizziness/vertigo. denies: numbness, slurred speech Psychiatric: reports: no symptoms reported Endocrine: reports: no symptoms reported Hematologic/Lymphatic: reports: no symptoms reported Allergic/Immunologic: reports: no symptoms reported All Other Systems: Reviewed and Negative Past History - Adult - PAST MEDICAL HISTORY-ADULT Review of Records: reports: Old Records Reviewed, Nursing Assessment Review, M edications Reviewed, Social history reviewed & non-contributory. Major Childhood Illnesses: reports: history unknown Cardiovascular: reports: denies history Respiratory: reports: COPD Gastrointestinal: reports: GERD Obstetrical/Gynecological: reports: denies history Genitourinary: reports: denies history Musculoskeletal: reports: arthritis, intervertebral disc disease, osteoporosis, other Neurological: reports: denies history Psychiatric: reports: anxiety Endocrine/Immune: reports: thyroid disorder, other (breast cancer) Other Conditions: reports: denies history - PRIOR SURGERIES/PROCEDURES Surgical/Procedure History: reports: appendectomy, hysterectomy, orthopedic (extremity), other (mastectomy) - IMMUNIZATION STATUS Childhood Immunizations: See Nurse Assessment Flu Vaccine: See Nurse Assessment - FAMILY HISTORY Family History: reviewed, not pertinent Physical Exam-General - PHYSICAL EXAM-ADULT Initial Vital Signs Reviewed: Yes - CONSTITUTIONAL General Appearance: alert, mild distress, thin, other (uncomfortable appearing, chornically ill appearing, weak). negative: appears well (chronic ill apperaring), lethargic, slow to respond - EYES Eyes: PERRL/EOMI - HEAD, EARS, NOSE, MOUTH & THROAT HENMT: normocephalic/atraumatic - NECK Neck: supple, normal inspection - RESPIRATORY Respiratory: chest non-tender, no respiratory distress, no accessory muscle use, decreased breath sounds (bilaterally) - CARDIOVASCULAR Cardiovascular: normal peripheral pulses, regular rate, rhythm, no murmur - CHEST (BREASTS) Chest/Breast: deferred - GASTROINTESTINAL (ABDOMEN) Abdominal Exam: normal bowel sounds, soft, tenderness (epigastric) - GENITOURINARY Female Genitalia/Pelvic Exam: deferred Rectal Exam: deferred Hemoccult Exam: deferred - MUSCULOSKELETAL Back Exam: normal inspection, no CVA tenderness Extremity: normal inspection - SKIN Integumentary: warm/dry, pallor - NEUROLOGIC Neurologic: grossly normal, no motor/sensory deficits - PSYCHIATRIC Psych/Mental Status: normal mood/affect, normal thought content, normal thought process, oriented x 3 Progress - PLAN OF CARE/RESULTS Progress/Plan/Lab Results: Vital Signs - 8 hr 09/07/19 11:45 Temperature 98.2 F Pulse Rate 82 Respiratory Rate 22 Blood Pressure 131/78 O2 Sat by Pulse Oximetry 99 Laboratory Results - last 24 hr 09/07/19 09/07/19 09/07/19 12:06 12:06 12:06 WBC 6.72 RBC 3.74 L Hgb 11.5 L Hct 33.0 L MCV 88.2 MCH 30.7 MCHC 34.8 RDW Std Deviation 15.4 H Plt Count 179 MPV 10.3 Immature Gran % (Auto) 1.0 H Neut % (Auto) 77.6 H Lymph % (Auto) 13.7 L [place] % (Auto) 7.3 Eos % (Auto) 0.1 Baso % (Auto) 0.3 Immature Gran # (Auto) 0.07 H Neut # (Auto) 5.21 Lymph # (Auto) 0.92 L [place] # (Auto) 0.49 Eos # (Auto) 0.01 Baso # (Auto) 0.02 PT INR PTT (Actin FS) Sodium 118 L* Potassium 4.2 Chloride 83 L Carbon Dioxide 21 L Anion Gap 14 BUN 12 Creatinine 0.7 Estimated GFR/1.73 m2 > 60 BUN/Creatinine Ratio 17 Glucose 90 POC Glucose Calculated Osmolality 238 Calcium 8.3 L Total Bilirubin 0.29 AST 25 ALT 18 Alkaline Phosphatase 153 H Creatine Kinase 83 Troponin T [id number]-B-Dhwpexmhlba Pept 370 H Total Protein 6.1 L Albumin 4.0 Globulin 2.1 Albumin/Globulin Ratio 1.9 09/07/19 09/07/19 09/07/19 12:06 12:06 12:10 WBC RBC Hgb Hct MCV MCH MCHC RDW Std Deviation Plt Count MPV Immature Gran % (Auto) Neut % (Auto) Lymph % (Auto) [place] % (Auto) Eos % (Auto) Baso % (Auto) Immature Gran # (Auto) Neut # (Auto) Lymph # (Auto) [place] # (Auto) Eos # (Auto) Baso # (Auto) PT 14.0 INR 1.07 PTT (Actin FS) 30.8 Sodium Potassium Chloride Carbon Dioxide Anion Gap BUN Creatinine Estimated GFR/1.73 m2 BUN/Creatinine Ratio Glucose POC Glucose 91 Calculated Osmolality Calcium Total Bilirubin AST ALT Alkaline Phosphatase Creatine Kinase Troponin T < 0.010 [id number] Pept Total Protein Albumin Globulin Albumin/Globulin Ratio Orders Category Date Time Status Cardiac Monitoring DIRECTED Care 09/07/19 11:49 Active Oxygen Therapy- ED Nursing DIRECTED Care 09/07/19 11:49 Active Saline Loc NOW Care 09/07/19 11:49 Active CHEST-2 VIEWS [RAD] Stat Exams 09/07/19 11:49 Completed CBC WITH ELECTRONIC DIFF [HEME] Stat Lab 09/07/19 12:06 Completed CK PROFILE [SP CHEM] Stat Lab 09/07/19 12:06 Completed COMPREHENSIVE METABOLIC PANEL [CHEM] Stat Lab 09/07/19 12:06 Completed PRO B-NATRIURETIC PEPTIDE Stat Lab 09/07/19 12:06 Completed PROTIME WITH INR [COAG] Stat Lab 09/07/19 12:06 Completed PTT [COAG] Stat Lab 09/07/19 12:06 Completed TROPONIN T Stat Lab 09/07/19 12:06 Completed CP/SOB/Palp >45 yrs of Age Stat Oth 09/07/19 11:49 Ordered EKG [EKG] Stat Ther 09/07/19 11:49 Draft Patient with hyponatremia to 118, likely 2.2 to intractable nausea and vomiting. Needs admission. Patient better controlled with zofran and morphine IV. Spoke to Hospitalist DERRICK BUILDER train operations manager who accepted patient for admission. Further orders to be placed per their team. Result Diagrams: 09/07/19 12:06 09/07/19 12:06 - XRAY 1 XRAY Study: Chest Impression: See EMR Report ( EXAM: CHEST-2 VIEWS 09/07/2019 HISTORY: weakness TECHNIQUE: PA and lateral chest COMMENT: There is a Port-A-Cath on the left. There is hyperinflation of the lungs consistent with COPD. There is a calcified granuloma present in the left lower lobe. There are surgical clips in the right axillary region. There are calcified nodes in the aorticopulmonary window. No evidence of acute pulmonary disease is present and the heart and pulmonary vascularity are within normal limits. IMPRESSION: COPD. Electronically signed by Bashir Her 09/07/2019 12:35 PM 09/07/19 1235 Interpreting Physician: Bashir Her MD Dictated Date/Time: 09/07/19 1234 cc: Mita Hernandez MD; Miladys Vaughn MD) - CONSULTS/PCP/HOSPITALIST Notification Time Discussed: 13:55 Reason/Comments: ALICIA Jimenez for hospitlaist Consult Disposition: Admit Departure - Departure Date of Disposition Decision: 09/07/19 Time of Disposition Decision: 13:55 DIAGNOSIS: Hyponatremia, Small cell carcinoma of lung, Intractable nausea and vomiting Disposition: ADMITTED INPATIENT 09 Certified Medical Emergency: Emergent Condition: Critical Referrals and Follow-Ups: Miladys Vaughn MD [Primary Care Provider] - Discharge Education: Steps to Quit Smoking, [id number] - Critical Care Note This patient required my direct & personal management of CC.: No Attestation - Physician/ VIANNEY Attestation Patient care was provided by Advanced Practice Provider:: No The physician spent face to face time with patient:: Yes Advanced Practice Provider documentation review:: Supervising physician onsite and consulted in the evaluation and care of this patient. The physician did have a face to face encounter with the patient. This chart was documented by the indicated scribe, (Ace Harvey, Jakob) and accurately reflects the services I performed and decisions made by me, Mita Hernandez MD, as attested by the provider's signature.
[2019-09-07] MEDS ORDERED: SODIUM CHLORIDE 0.9% INJ PRN (15:38)
[2019-09-07] MEDS ORDERED: DUONEB (A & A) INH PRN (15:48)
[2019-09-07] MEDS ORDERED: TYLENOL PO PRN (15:48)
--- NOTE | 2019-09-07 17:36 | HISTORY AND PHYSICAL ---
ATTENDING PHYSICIAN: Admitted to the hospitalist service. PHYSICIAN: She has no primary care physician but is followed by Dr. Vaughn for metastatic breast cancer. HISTORY OF PRESENT ILLNESS: This is a 63-year-old who was last admitted on 07/16/2019 for the same reason: Weakness and fatigue, no appetite, but she has had nausea for the last 48 hours and frequent emesis, and just very weak. She has not put any food or water in or very little fluids. She is status post chemotherapy, radiation therapy and mastectomy for breast cancer, diagnosed with stage IV. She has metastasis to the liver, the spine and the lungs. She was followed by Dr. Vaughn recently. They have been encouraged with a little decrease in tumor load in the liver. She gets treatment once every 21 days. She does not remember what the treatment is. PAST MEDICAL HISTORY: COPD. She is not sure if she is on home O2 or not. Gastroesophageal reflux disease, anxiety, chronic kidney disease, thyroid nodules, breast cancer. PAST SURGICAL HISTORY: Bilateral mastectomy. SOCIAL HISTORY: She smokes about a pack a day, or did. She drinks alcohol on occasion. Denies any illicit drugs or tobacco use. ALLERGIES: Stadol causes nausea. REVIEW OF SYSTEMS: General: She has felt like she has been chilled. No fever recorded. Nausea and frequent throwing up, very weak, general malaise. She says she hurts everywhere, myalgia, diffuse. Respiratory: No increased work of breathing or dyspnea. Cardiovascular: No chest pain or tachycardic palpitation. Gastrointestinal: The nausea. She denies diarrhea. Poor appetite. Genitourinary: No gross hematuria or dysuria. Musculoskeletal/Neurologic: Just general myalgias. No focal complaints. Endocrinologic/hemologic: She has some history of thyroid nodules and metastatic breast cancer, and apparently she does have metastasis to her spine as well. PHYSICAL EXAMINATION: GENERAL: In the emergency room she is awake and alert, on nasal cannula. She has multiple covers up to her chin. Still cold. VITAL SIGNS: Temperature 98.2 degrees, pulse 82, respirations 22, blood pressure 129/73. HEENT: Pupils are equal and round. Oral and nasal mucosa is dry. No oral or nasal mucosa lesions. CVP less than 6 cm from right atrium. LYMPHATIC: No cervical adenopathy. No axillary or femoral adenopathy. CVP less than 6 cm from right atrium. LUNGS: Clear in all lung soto. CARDIOVASCULAR: Regular rhythm and rate without murmur or S3. PMI nondisplaced. Carotid, radial and femoral pulses 2+ and symmetrical. Pedal pulses 2+ and symmetrical. No pedal edema. ABDOMEN: Soft. She says she is a little sore in her abdomen. She thinks it is from throwing up. This is in the middle of her abdomen. There is no tenderness on exam. SKIN: No sign of rash. NECK: Supple. Thyroid nodules appreciated, but no adenopathy. LABORATORY DATA: White count 6720, hematocrit is 33, hemoglobin 11, MCV is 88, platelet count is 179,000. Sodium 118, potassium 4.2, chloride 83, BUN 12, creatinine 0.7, calcium 8.3, AST 25, ALT is 18, alkaline phosphatase is 153. Troponin less than 0.01. ProBNP 370. Albumin 4.0. Pro time 14, INR 1.07, PTT is 30.8. DIAGNOSTIC DATA: Chest x-ray: Port-A-Cath on the left; hyperinflation of lungs consistent with COPD; calcified granuloma present in the left lower lobe; there are surgical clips in the right axillary region; calcified nodules in the aorticopulmonary window; no evidence of acute pulmonary disease present; no infiltrates; the pulmonary vascularity is within normal limits. ASSESSMENT AND PLAN: 1. Metastatic breast cancer, metastasis to the liver, to the lungs and to her spine. No metastasis to her brain. They have had a recent PET scan. She is intravascularly volume- depleted. She has had vomiting and emesis, so we are going to give her some fluid. It looks like she is in the classification of hypovolemic hyponatremic. Of course, she has metastatic cancer, but I believe this is probably from hypovolemia. We will give her normal saline. We will run it in at 100 mL/h for 8 hours then we will turn it down to 85 mL/h. We will check the urine for osmolality, creatinine, and sodium, just a spot urine. She has thyroid nodules, so we will check her T4, TSH, B12 and folate. We will check an a.m. cortisol level as well, just to make sure cortisol is okay, and follow her sodium level as well as her magnesium, her other electrolytes and her renal function. 2. Metastatic breast cancer, getting treatment under Dr. Vaughn's direction. We will consult Dr. Vaughn to help us with evaluation and treatment. 3. Chronic obstructive pulmonary disease. We will keep her on nasal cannula. She does not appear to have any trouble with air flow or gas exchange at this time, so she does not have chronic obstructive pulmonary disease exacerbation. 4. History of gastroesophageal reflux. We will keep her on a proton pump inhibitor. 5. Chronic kidney disease. Her renal function looks pretty good. Creatinine is 0.7 and her calculated GFR is greater than 60. 6. Thyroid nodules. Aware. We will check her thyroid levels. 7. We will keep her on clear liquids right now just because she is nauseated. We will give her Zofran for nausea q.4 hours and if that is not effective, we will give her Phenergan 12.5 mg intravenous q.4 hours. We will get daily electrolytes and follow her sodium, and we will get daily magnesium level as well. cc: Delgado Calabrese MD
[2019-09-07] MEDS: NORCO-10 PO PRN (19:44)
[2019-09-07] MEDS: PHENERGAN IV PRN (19:44)
[2019-09-07] MEDS: MORPHINE IV PRN (23:09)
[2019-09-08] MEDS: NS 1,000 ML IV SCH ×3 (00:04→23:48)
[2019-09-08] MEDS: NORCO-10 PO PRN ×5 (01:27→20:59)
[2019-09-08] MEDS: PHENERGAN IV PRN ×4 (01:28→20:59)
[2019-09-08] MEDS: MORPHINE IV PRN ×5 (03:32→23:49)
[2019-09-08 07:40] LABS: BASO# 0.02 X1000 (0.0-0.2); BASO% 0.4 % (0.0-0.8); EOS# 0.02 X1000 (0.0-0.7); EOS% 0.4 % (0.0-10.0); HEMATOCRIT 29.5 % (37.0-47.0); HEMOGLOBIN 10.1 g/dL (12.0-16.0); IMM GRAN# 0.02 X1000 (0.0-0.04); IMM GRAN% 0.4 % (0.0-0.5); LYMPH# 0.77 X1000 (1.2-3.4); LYMPH% 15.9 % (20.5-51.1); MCH 31.1 PG (27-31); MCHC 34.2 g/dL (33-37); MCV 90.8 FL (81-99); MONO% 12.4 % (1.7-9.3); MPV 10.2 FL (7.4-10.4); NEUT# 3.41 X1000 (1.4-6.5); NEUT% 70.5 % (42.2-75.2); PLT 174 X1000 (130-400); RBC 3.25 XMIL (4.2-5.4); RDW 15.8 % (11.5-14.5); WBC 4.84 X1000 (4.8-10.8)
[2019-09-08 08:14] LABS: AGAP 13; ALB/GLOB RATIO 1.5; ALBUMIN 3.1 g/dL (3.5-5.0); ALKALINE PHOSPHATASE 116 U/L (32-104); BUN 7 mg/dL (8-22); CALCIUM 8.1 mg/dL (8.8-10.2); CHLORIDE 99 mmol/L (98-107); COSMO 260; CREATININE 0.6 mg/dL (0.5-0.9); ESTIMATED GFR > 60; GLUCOSE 92 mg/dL (70-104); GOT 19 U/L (10-30); GPT 13 U/L (10-36); MAGNESIUM 1.9 mg/dL (1.5-2.7); POTASSIUM 3.7 mmol/L (3.5-5.1); SODIUM 131 mmol/L (136-145); TCO2 19 mmol/L (25-35); TOTAL BILIRUBIN 0.31 mg/dL (0.20-1.00); TOTAL PROTEIN 5.2 g/dL (6.3-8.3)
[2019-09-08] MEDS: ZOFRAN IV PRN (08:16)
[2019-09-08 08:29] LABS: FREE T4 1.48 ng/dL (0.93-1.70); TSH 0.46 uIUmL (0.27-4.20)
--- NOTE | 2019-09-08 15:43 | PROGRESS NOTE ---
DATE: 09/08/2019 Ms. Ramirez says she does feel better and she would like a little more for something for pain and she wanted to be put on a regular diet. She remained afebrile, temperature 97.9 degrees, pulse 70, respirations 19, blood pressure 146/68. Pupils are equal. No distended neck veins. Lungs are clear anterolateral. Cardiovascular regular rhythm rate without murmur or S3. Abdomen is soft. Skin is warm and dry. Urine output is 1600 mL. ASSESSMENT AND PLAN: 1. Metastatic breast cancer, metastasis to the liver, lungs, and spine, and in quite a bit of pain. She was scheduled to get her course of chemo tomorrow but I suspect they will postpone that. I will see if we can increase some of her pain medicine for pain control. 2. Metastatic breast cancer with chronic pain, followed by Dr. Hernandez and Dr. Hernandez was consulted. 3. COPD. She does continue supplemental O2. Her breathing seems to be comfortable. 4. Gastroesophageal reflux disease. Continue proton pump inhibitor. 5. Chronic kidney disease by report. However, creatinine looks good and renal function looks good. 6. Thyroid nodules. Aware. Advance her diet. Looking at her pain medicine, she is getting 2 mg of morphine q. 3 hours. I will increase that to 4 mg q. 3 hours p.r.n. She also gets hydrocodone 10 mg q. 4 hours p.r.n. cc: Delgado Calabrese MD
[2019-09-09] MEDS: MORPHINE IV PRN ×5 (03:22→18:38)
[2019-09-09] MEDS: PHENERGAN IV PRN ×3 (03:23→20:21)
[2019-09-09 08:05] LABS: BASO# 0.02 X1000 (0.0-0.2); BASO% 0.6 % (0.0-0.8); EOS# 0.03 X1000 (0.0-0.7); EOS% 0.9 % (0.0-10.0); HEMATOCRIT 30.5 % (37.0-47.0); HEMOGLOBIN 10.1 g/dL (12.0-16.0); LYMPH# 0.94 X1000 (1.2-3.4); LYMPH% 27.4 % (20.5-51.1); MCH 30.8 PG (27-31); MCHC 33.1 g/dL (33-37); MONO# 0.67 X1000 (0.11-0.59); MONO% 19.5 % (1.7-9.3); MPV 10.1 FL (7.4-10.4); NEUT# 1.77 X1000 (1.4-6.5); NEUT% 51.6 % (42.2-75.2); PLT 173 X1000 (130-400); RBC 3.28 XMIL (4.2-5.4); RDW 16.6 % (11.5-14.5); WBC 3.43 X1000 (4.8-10.8)
--- NOTE | 2019-09-09 08:42 | PROGRESS NOTE ---
DATE: 09/09/2019 SUBJECTIVE: She says her eyes are sore and watering. Says the pain control is better. She is not uncomfortable. Has not had a bowel movement, but she just started eating yesterday a little bit. She is asking to go back on her home medicine. She takes Ativan 1 mg twice a day, so will do that. OBJECTIVE: Vital Signs: Temperature 98.2 degrees, pulse 72, respirations 14, blood pressure 141/69. HEENT: Pupils are equal and round. Lungs: Clear in all lung soto. Cardiovascular: Regular rhythm and rate without murmur or S3. Abdomen: Soft, nondistended, nontender. Extremities: No pedal edema. Urine output was 2200 mL. ASSESSMENT AND PLAN: 1. Metastatic breast cancer with metastasis to liver, lungs, spine. Quite a bit of pain. She is scheduled to get her next course of chemotherapy today, but suspect we will postpone that. She is followed by Dr. Vaughn. 2. Chronic obstructive pulmonary disease. Does not appear to be an exacerbation. She has supplementary oxygen. Breathing comfortably. Good air and gas exchange. 3. Gastroesophageal reflux. Continue her proton pump inhibitor. She is eating a little better. The nausea has diminished. 4. Chronic kidney disease by report. However, her renal function looks good. Good urine output. 5. Thyroid nodules. Aware. 6. Eyes are irritated. I do not know if that is a side effect from medication, and she does suffer from anxiety. I will put her back on her Ativan. REVIEW OF ORDERS: She is getting morphine 4 mg IV every 3 hours p.r.n., normal saline at 85 mL an hour, hydrocodone 10 mg every 4 hours p.r.n., normal saline is at 100 mL an hour, and she is getting her Samsca 15 mg daily. She does have chronic hyponatremia. LABORATORY DATA: Lab from yesterday showed sodium was up to 131, potassium 3.7, chloride 99, BUN 7, creatinine 0.6. Her sodium came up from 118, so she has done real well with that. CBC from this morning shows white count is 3430, hematocrit is 30, platelet count is 173,000. cc: Delgado Calabrese MD
[2019-09-09 09:08] LABS: AGAP 13; ALB/GLOB RATIO 1.9; ALBUMIN 3.5 g/dL (3.5-5.0); ALKALINE PHOSPHATASE 118 U/L (32-104); BUN 8 mg/dL (8-22); CALCIUM 8.3 mg/dL (8.8-10.2); CHLORIDE 103 mmol/L (98-107); COSMO 269; CREATININE 0.6 mg/dL (0.5-0.9); ESTIMATED GFR > 60; GLUCOSE 80 mg/dL (70-104); GOT 17 U/L (10-30); GPT 12 U/L (10-36); MAGNESIUM 1.8 mg/dL (1.5-2.7); POTASSIUM 4.3 mmol/L (3.5-5.1); SODIUM 136 mmol/L (136-145); TCO2 20 mmol/L (25-35); TOTAL BILIRUBIN 0.28 mg/dL (0.20-1.00); TOTAL PROTEIN 5.3 g/dL (6.3-8.3)
[2019-09-09] MEDS: MARINOL PO SCH ×2 (10:22→20:26)
[2019-09-09] MEDS: ATIVAN PO SCH ×2 (10:23→20:22)
[2019-09-09] MEDS: MS CONTIN PO SCH ×2 (10:23→20:23)
[2019-09-09] MEDS: CELEBREX PO SCH (10:23)
[2019-09-09] MEDS: TEARISOL OPH SOLUTION BOTH EYES SCH ×4 (10:37→21:07)
[2019-09-09] MEDS: NS 1,000 ML IV SCH (10:37)
[2019-09-09] MEDS: NORCO-10 PO PRN ×3 (11:39→20:21)
[2019-09-09] MEDS: NEURONTIN PO SCH ×2 (15:26→20:22)
[2019-09-09] MEDS: ZOFRAN IV PRN (15:29)
[2019-09-09] MEDS: ROBITUSSIN-AC PO PRN (16:23)
[2019-09-09] MEDS: SEROQUEL PO SCH (20:22)
--- NOTE | 2019-09-09 20:59 | HEMO/ONC CONSULTATION ---
DATE: 09/09/2019 REASON FOR CONSULTATION: Patient known, weakness. HISTORY OF PRESENT ILLNESS: Ms. Rebeca Henry is a 63-year-old female who is known to us as we are currently treating her for extensive stage small cell lung carcinoma. The patient also has a history of triple negative breast cancer but has no evidence of recurrence at this time. The patient is currently receiving Tecentriq, carboplatin and etoposide. She is status post 2 cycles of therapy. Her third cycle of therapy is actually due today but is currently on hold as she is currently in the hospital. The patient has been having issues with hyponatremia related to her small cell lung cancer. In fact, she was admitted I believe back in July with some issues. We have been monitoring her sodium in the office. We have prescribed her salt tablets. Discussed this with the patient today, but she has not been taking those salt tablets. She has previously expressed that she is unable to afford Samsca as an outpatient. Currently, the patient is feeling better. Her sodium is also improved. She continues to have a cough, which is causing her voice to be hoarse. We have been consulted to help assist with the care of the patient while she is here at [facility]. PAST MEDICAL HISTORY: 1. Extensive stage small cell lung cancer, currently being treated with Tecentriq, etoposide and carboplatin, status post 2 cycles. Third cycle due today. 2. History of triple negative breast cancer with no evidence of recurrence at this time. She was previously treated with dose-dense AC followed by dose-dense Taxol, completing treatment on 04/27/2015. 3. Gastrointestinal reflux disease. 4. Anxiety. 5. Chronic kidney disease. 6. Thyroid nodules. 7. Chronic pain. PAST SURGICAL HISTORY: 1. Bilateral mastectomies. 2. Liver biopsy. SOCIAL HISTORY: The patient is a previous pack-a-day smoker. She recently reports discontinuing cigarette use. She denies any daily alcohol use. She denies any illicit drug use. FAMILY HISTORY: Negative for cancer. REVIEW OF SYSTEMS: Twelve-point review of systems has been completed and is negative except for expressed in HPI. PHYSICAL EXAMINATION: Vital Signs: Temperature 98.4 degrees, heart rate 78, respirations 18, blood pressure 136/76, O2 saturation 100% on room air. General: This is a thin, female lying in the hospital bed in no acute distress. Head: Normocephalic, atraumatic. Eyes: Pupils equal, round, reactive. Ears, nose, throat, neck and mouth: Oral mucosa appears to be normal. Gross auditory acuity is intact. She does have a hoarse voice. Cardiovascular: S1, S2 heard with no murmurs, gallops or rubs appreciated. Respiratory: Coarse breath sounds noted. Gastrointestinal: Abdomen is soft with normoactive bowel sounds noted. Musculoskeletal: No obvious bony abnormalities. Skin: No rashes. Neurologic: Patient is alert and oriented with no focal motor deficits noted. LABS AND STUDIES: White blood cells today are 3.43, hemoglobin 10.1, platelet count is 173,000. Sodium today is back up to 136, potassium 4.3, chloride 103, CO2 20, BUN 8, creatinine 0.6, glucose 80. ASSESSMENT AND PLAN: 1. Extensive stage small cell lung cancer. Again patient is actually due for cycle #3 of Tecentriq, carboplatin and etoposide. Treatment will be on hold while she is in the hospital. The hope will be that we will be able to treat her here in the next couple of days, and she will be able to be discharged. 2. Hyponatremia, severe. The patient had a sodium level of 118 on admission. She presented with vomiting as well as weakness. We will continue to treat her small-cell lung cancer, which is causing her sodium to be low. We would also recommend that she take the salt tablets that we previously prescribed. The patient has expressed difficulty affording Samsca as an outpatient. We will continue to monitor her CMP closely while she is in the hospital but also once she is out. 3. She does have metastatic disease to the liver and bones, but this is felt to be secondary to her small cell lung cancer. Continue pain management and adjust pain medications as needed. 4. Chronic obstructive pulmonary disease. Continue O2 support as needed. She is also getting nebulizer treatments as needed. 5. Decreased appetite. She will continue Marinol. 6. History of triple negative breast cancer. No evidence of recurrence at this time. 7. Cough. The patient has been having a cough for some time. It is related to her disease. She has been taking guaifenesin with codeine, and we will go ahead and prescribe that at this time. We want to thank you for consulting us on Ms. Ramirez while she is here at [facility]. We will continue to follow along and adjust our treatment plan per her hospital course. Dictated by KI Tracey for Miladys Vaughn MD cc: Miladys Vaughn MD I have seen and examined the patient and the above note reflects my history, physical exam, assessment and plan. Miladys Vaughn MD [facility] CENTERMerlin
[2019-09-10] MEDS: NEURONTIN PO SCH ×4 (05:05→20:51)
[2019-09-10] MEDS: MORPHINE IV PRN ×4 (05:06→18:47)
[2019-09-10] MEDS: NS 1,000 ML IV SCH ×3 (05:06→20:51)
[2019-09-10] MEDS: PHENERGAN IV PRN ×3 (05:06→18:47)
[2019-09-10] MEDS: NORCO-10 PO PRN ×2 (07:06→17:40)
[2019-09-10 08:12] LABS: BASO# 0.05 X1000 (0.0-0.2); BASO% 1.6 % (0.0-0.8); EOS# 0.13 X1000 (0.0-0.7); EOS% 4.1 % (0.0-10.0); HEMATOCRIT 32.6 % (37.0-47.0); HEMOGLOBIN 10.8 g/dL (12.0-16.0); LYMPH# 0.82 X1000 (1.2-3.4); LYMPH% 25.6 % (20.5-51.1); MCH 31.6 PG (27-31); MCHC 33.1 g/dL (33-37); MCV 95.3 FL (81-99); MONO# 0.71 X1000 (0.11-0.59); MONO% 22.2 % (1.7-9.3); MPV 10.3 FL (7.4-10.4); NEUT# 1.49 X1000 (1.4-6.5); NEUT% 46.5 % (42.2-75.2); PLT 210 X1000 (130-400); RBC 3.42 XMIL (4.2-5.4); RDW 17.5 % (11.5-14.5)
[2019-09-10 08:41] LABS: AGAP 10; ALB/GLOB RATIO 1.6; ALBUMIN 3.5 g/dL (3.5-5.0); ALKALINE PHOSPHATASE 115 U/L (32-104); BUN 12 mg/dL (8-22); CALCIUM 8.6 mg/dL (8.8-10.2); CHLORIDE 104 mmol/L (98-107); COSMO 274; CREATININE 0.7 mg/dL (0.5-0.9); ESTIMATED GFR > 60; GLUCOSE 112 mg/dL (70-104); GOT 17 U/L (10-30); GPT 13 U/L (10-36); MAGNESIUM 1.9 mg/dL (1.5-2.7); POTASSIUM 4.3 mmol/L (3.5-5.1); SODIUM 137 mmol/L (136-145); TCO2 23 mmol/L (25-35); TOTAL BILIRUBIN 0.21 mg/dL (0.20-1.00); TOTAL PROTEIN 5.7 g/dL (6.3-8.3)
[2019-09-10 09:09] LABS: LYMPHS 32 % (21-51); MONO 10 % (1-9); SEGS 58 % (42-75)
[2019-09-10] MEDS: NON-FORMULARY BULK MED INH SCH (09:13)
[2019-09-10] MEDS: ZOFRAN IV PRN ×2 (09:14→17:39)
[2019-09-10] MEDS: TEARISOL OPH SOLUTION BOTH EYES SCH ×4 (09:16→21:59)
[2019-09-10] MEDS: ATIVAN PO SCH ×2 (09:17→20:51)
[2019-09-10] MEDS: MS CONTIN PO SCH ×2 (09:17→20:51)
[2019-09-10] MEDS: CELEBREX PO SCH (09:17)
[2019-09-10] MEDS: ROBITUSSIN-AC PO PRN (09:18)
[2019-09-10] MEDS ORDERED: PRILOSEC PO ONE (09:28)
[2019-09-10] MEDS: MARINOL PO SCH ×2 (09:32→21:30)
--- NOTE | 2019-09-10 10:19 | PROGRESS NOTE ---
DATE: 09/10/2019 SUBJECTIVE: Ms. Ramirez is feeling a little better. She is not hurting as bad. Hurts mainly in her back at this time. Remains afebrile. OBJECTIVE: Temperature 97.7 degrees, pulse 80, respirations 14, blood pressure 121/69. Pupils are equal and round. Lungs are clear in all lung soto. Cardiovascular Examination: Regular rhythm and rate without murmur or S3. Abdomen is soft. Skin is warm and dry. ASSESSMENT AND PLAN: 1. Extensive stage small cell lung cancer. Actually is due for her cycle 3 of Tecentriq, carboplatin, and etoposide. Treatment on hold while in the hospital. 2. Hyponatremia, which is severe. This has recovered. She is back on her medications. Sodium has come up to 137 and she is getting her Samsca 15 mg daily. 3. Metastatic disease to liver and bones, felt secondary to small cell lung cancer. Continue present management. 4. Chronic obstructive pulmonary disease. She is on oxygen per nasal cannula and getting nebulized treatments. Does not appear to have trouble with air and gas exchange at this time. 5. Decreased appetite. She is on Marinol. Encourage oral intake. 6. She has triple negative breast cancer. No evidence of recurrence at this time. 7. She has had a cough and postnasal drainage. Continue her guaifenesin cough medicine. She is asking when she can go home. I think possibly she could go home tomorrow. cc: Delgado Calabrese MD
[2019-09-10] MEDS: SAMSCA PO SCH ×2 (12:33→16:51)
[2019-09-10] MEDS: SEROQUEL PO SCH (20:51)
[2019-09-11] MEDS: NEURONTIN PO SCH ×4 (03:59→20:06)
[2019-09-11] MEDS: NS 1,000 ML IV SCH ×2 (03:59→13:15)
[2019-09-11] MEDS: NORCO-10 PO PRN ×2 (06:08→12:29)
[2019-09-11] MEDS: PRILOSEC PO SCH (06:10)
[2019-09-11 07:35] LABS: BASO# 0.02 X1000 (0.0-0.2); BASO% 0.5 % (0.0-0.8); EOS# 0.13 X1000 (0.0-0.7); HEMATOCRIT 31.4 % (37.0-47.0); HEMOGLOBIN 10.2 g/dL (12.0-16.0); LYMPH% 11.5 % (20.5-51.1); MCH 30.9 PG (27-31); MCHC 32.5 g/dL (33-37); MCV 95.2 FL (81-99); MONO# 0.61 X1000 (0.11-0.59); MONO% 14.1 % (1.7-9.3); NEUT# 3.07 X1000 (1.4-6.5); NEUT% 70.9 % (42.2-75.2); PLT 221 X1000 (130-400); RDW 17.3 % (11.5-14.5); WBC 4.33 X1000 (4.8-10.8)
[2019-09-11 08:03] LABS: AGAP 10; ALB/GLOB RATIO 1.5; ALBUMIN 3.5 g/dL (3.5-5.0); ALKALINE PHOSPHATASE 116 U/L (32-104); BUN 16 mg/dL (8-22); CALCIUM 8.7 mg/dL (8.8-10.2); CHLORIDE 103 mmol/L (98-107); COSMO 278; CREATININE 0.8 mg/dL (0.5-0.9); ESTIMATED GFR > 60; GLUCOSE 80 mg/dL (70-104); GOT 20 U/L (10-30); GPT 13 U/L (10-36); MAGNESIUM 2.1 mg/dL (1.5-2.7); POTASSIUM 4.3 mmol/L (3.5-5.1); SODIUM 139 mmol/L (136-145); TCO2 26 mmol/L (25-35); TOTAL BILIRUBIN 0.24 mg/dL (0.20-1.00); TOTAL PROTEIN 5.9 g/dL (6.3-8.3)
[2019-09-11] MEDS: PHENERGAN IV PRN ×2 (08:43→13:18)
[2019-09-11] MEDS: CELEBREX PO SCH (08:43)
[2019-09-11] MEDS: SAMSCA PO SCH (08:43)
[2019-09-11] MEDS: ATIVAN PO SCH ×2 (08:50→20:05)
[2019-09-11] MEDS: MS CONTIN PO SCH ×2 (08:51→20:05)
[2019-09-11] MEDS: MORPHINE IV PRN ×3 (08:52→16:34)
[2019-09-11] MEDS: TEARISOL OPH SOLUTION BOTH EYES SCH ×4 (08:53→21:41)
--- NOTE | 2019-09-11 09:25 | PROGRESS NOTE ---
DATE: 09/11/2019 SUBJECTIVE: Ms. Ramirez had some nausea this morning. Otherwise, I think she feels a little better. She is eating a little bit and tolerated some food yesterday. She wanted to cut down her trazodone at night. Apparently she had some confusion, so the Seroquel we will cut her down from 50 to 25 mg at bedtime. OBJECTIVE: Vital signs: Temperature 98.4 degrees, pulse 90, respirations 16, blood pressure 149/69. HEENT: Pupils are equal and round. Lungs: Clear in all lung soto. Cardiovascular: Regular rhythm and rate without murmur or S3. Abdomen is soft. ASSESSMENT AND PLAN: 1. Extensive stage small cell lung cancer. She is due for her 3rd cycle of Tecentriq, carboplatin, and etoposide which will only get this treatment when she is feeling better. 2. Hyponatremia which is resolved. This is secondary to her small cell. She had a little volume contraction as well. She is doing better from that regard. 3. Metastatic disease to her liver and bones. We think this is secondary to small cell. 4. Chronic obstructive pulmonary disease. She is on O2. Air and gas exchange appear to be adequate. 5. Decreased appetite on Marinol. Encouraging p.o. intake. 6. Triple-negative breast cancer history. No evidence of recurrence at this time, so continue her current medication regimen and pain control. Hopefully, she can be discharged pretty soon. We put her back on her Coumadin 1 mg p.o. at bedtime. cc: Delgado Calabrese MD
[2019-09-11] MEDS: MARINOL PO SCH ×2 (10:42→20:05)
[2019-09-11] MEDS: ZOFRAN IV PRN (10:45)
[2019-09-11] MEDS: NON-FORMULARY BULK MED INH SCH (13:15)
[2019-09-11] MEDS: COUMADIN PO SCH (20:06)
[2019-09-11] MEDS: SEROQUEL PO SCH (20:06)
[2019-09-12] MEDS: NEURONTIN PO SCH ×4 (02:15→21:38)
[2019-09-12] MEDS: MORPHINE IV PRN ×4 (02:15→14:48)
[2019-09-12] MEDS: NS 1,000 ML IV SCH ×2 (02:16→14:48)
[2019-09-12] MEDS: PRILOSEC PO SCH (06:34)
[2019-09-12 07:13] LABS: BASO# 0.02 X1000 (0.0-0.2); BASO% 0.5 % (0.0-0.8); EOS# 0.13 X1000 (0.0-0.7); EOS% 3.2 % (0.0-10.0); HEMATOCRIT 29.5 % (37.0-47.0); HEMOGLOBIN 9.4 g/dL (12.0-16.0); LYMPH# 0.71 X1000 (1.2-3.4); LYMPH% 17.4 % (20.5-51.1); MCH 30.4 PG (27-31); MCHC 31.9 g/dL (33-37); MCV 95.5 FL (81-99); MONO# 0.56 X1000 (0.11-0.59); MONO% 13.7 % (1.7-9.3); MPV 9.9 FL (7.4-10.4); NEUT# 2.67 X1000 (1.4-6.5); NEUT% 65.2 % (42.2-75.2); PLT 225 X1000 (130-400); RBC 3.09 XMIL (4.2-5.4); RDW 17.4 % (11.5-14.5); WBC 4.09 X1000 (4.8-10.8)
[2019-09-12 07:44] LABS: AGAP 9; ALB/GLOB RATIO 1.4; ALBUMIN 3.4 g/dL (3.5-5.0); ALKALINE PHOSPHATASE 110 U/L (32-104); BUN 17 mg/dL (8-22); CALCIUM 8.9 mg/dL (8.8-10.2); CHLORIDE 104 mmol/L (98-107); COSMO 281; CREATININE 0.8 mg/dL (0.5-0.9); ESTIMATED GFR > 60; GLUCOSE 106 mg/dL (70-104); GOT 20 U/L (10-30); GPT 13 U/L (10-36); MAGNESIUM 1.9 mg/dL (1.5-2.7); POTASSIUM 4.3 mmol/L (3.5-5.1); SODIUM 140 mmol/L (136-145); TCO2 27 mmol/L (25-35); TOTAL BILIRUBIN 0.21 mg/dL (0.20-1.00); TOTAL PROTEIN 5.9 g/dL (6.3-8.3)
[2019-09-12] MEDS: NON-FORMULARY BULK MED INH SCH (07:55)
[2019-09-12] MEDS: PHENERGAN IV PRN ×2 (08:11→14:48)
[2019-09-12] MEDS: CELEBREX PO SCH (10:16)
[2019-09-12] MEDS: SAMSCA PO SCH (10:16)
[2019-09-12] MEDS: ATIVAN PO SCH ×2 (10:17→21:38)
[2019-09-12] MEDS: MS CONTIN PO SCH ×2 (10:17→21:38)
[2019-09-12] MEDS: MARINOL PO SCH ×2 (10:17→21:38)
[2019-09-12] MEDS: TEARISOL OPH SOLUTION BOTH EYES SCH ×3 (10:18→19:00)
--- NOTE | 2019-09-12 10:39 | PROGRESS NOTE ---
DATE: 09/12/2019 SUBJECTIVE: Ms. Ramirez says she had more nausea this morning. In general, she is feeling stronger. She did get a little bit of food down yesterday but still has the nausea. Her bowels are moving okay. She remains afebrile. OBJECTIVE: Temperature 98.8 degrees, pulse 80, respirations 18, blood pressure 130/66. Pupils are equal and round. Lungs are clear in all lung soto. Cardiovascular Examination: Regular rhythm and rate without murmur or S3. Urine output was 2600 mL. ASSESSMENT AND PLAN: 1. Extensive small cell lung cancer. She is due for her third cycle of Tecentriq, carboplatin, and etoposide when she is better. 2. Hyponatremia, resolved. 3. Metastatic small cell lung cancer to her liver and bones. 4. Chronic obstructive pulmonary disease. Does not have exacerbation. 5. Decreased appetite. She is on Marinol. 6. History of triple negative breast cancer in the past. 7. She is still having some nausea. Otherwise, she is improving. Hopefully can go home soon. We did cut down her Seroquel to 25 mg at bedtime. She is on Coumadin 1 mg at bedtime, getting Celebrex 200 mg daily, hydrocodone 10 mg every 4 hours as needed, and she gets her morphine ER 15 mg by mouth twice a day. She is on Samsca 15 mg daily. cc: Delgado Calabrese MD
[2019-09-12] MEDS: ZOFRAN IV PRN (11:15)
[2019-09-12] MEDS: COUMADIN PO SCH (21:38)
[2019-09-12] MEDS: SEROQUEL PO SCH (21:38)
[2019-09-13] MEDS: MORPHINE IV PRN ×2 (02:25→08:55)
[2019-09-13] MEDS: NS 1,000 ML IV SCH ×2 (02:25→11:33)
[2019-09-13] MEDS: NEURONTIN PO SCH ×2 (02:25→08:56)
[2019-09-13] MEDS: TEARISOL OPH SOLUTION BOTH EYES SCH ×2 (05:22→08:45)
[2019-09-13] MEDS: PRILOSEC PO SCH (06:05)
[2019-09-13] MEDS: NORCO-10 PO PRN (07:11)
[2019-09-13 07:57] LABS: AGAP 11; ALB/GLOB RATIO 1.2; ALBUMIN 3.2 g/dL (3.5-5.0); ALKALINE PHOSPHATASE 105 U/L (32-104); BUN 13 mg/dL (8-22); CALCIUM 8.9 mg/dL (8.8-10.2); CHLORIDE 109 mmol/L (98-107); COSMO 286; CREATININE 0.7 mg/dL (0.5-0.9); ESTIMATED GFR > 60; GLUCOSE 74 mg/dL (70-104); GOT 20 U/L (10-30); GPT 14 U/L (10-36); MAGNESIUM 2.1 mg/dL (1.5-2.7); POTASSIUM 4.6 mmol/L (3.5-5.1); SODIUM 144 mmol/L (136-145); TCO2 24 mmol/L (25-35); TOTAL BILIRUBIN 0.18 mg/dL (0.20-1.00); TOTAL PROTEIN 5.8 g/dL (6.3-8.3)
[2019-09-13 08:07] LABS: BASO# 0.03 X1000 (0.0-0.2); BASO% 0.8 % (0.0-0.8); EOS# 0.12 X1000 (0.0-0.7); EOS% 3.3 % (0.0-10.0); HEMATOCRIT 29.5 % (37.0-47.0); HEMOGLOBIN 9.6 g/dL (12.0-16.0); LYMPH# 0.71 X1000 (1.2-3.4); LYMPH% 19.4 % (20.5-51.1); MCH 31.8 PG (27-31); MCHC 32.5 g/dL (33-37); MCV 97.7 FL (81-99); MONO# 0.76 X1000 (0.11-0.59); MONO% 20.8 % (1.7-9.3); MPV 9.9 FL (7.4-10.4); NEUT# 2.04 X1000 (1.4-6.5); NEUT% 55.7 % (42.2-75.2); PLT 217 X1000 (130-400); RBC 3.02 XMIL (4.2-5.4); RDW 17.7 % (11.5-14.5); WBC 3.66 X1000 (4.8-10.8)
[2019-09-13 08:11] VITALS: BP 135/73
[2019-09-13] MEDS: CELEBREX PO SCH (08:44)
[2019-09-13] MEDS: SAMSCA PO SCH (08:44)
[2019-09-13] MEDS: MARINOL PO SCH (08:56)
[2019-09-13] MEDS: MS CONTIN PO SCH (08:56)
[2019-09-13] MEDS: ATIVAN PO SCH (08:56)
[2019-09-13] MEDS: PHENERGAN IV PRN (10:05)
[2019-09-13] MEDS: NON-FORMULARY BULK MED INH SCH (11:32)
--- NOTE | 2019-09-13 22:32 | DISCHARGE SUMMARY ---
ADMISSION DATE: 09/07/2019 DISCHARGE DATE: 09/13/2019 CONSULTS: Oncology, Dr. Vaughn. PERTINENT STUDIES: Chest x-ray with chronic evidence of COPD, Port-A-Cath on the left but no acute process. Initial sodium 118, discharge sodium 144. Admission hemoglobin 11.5, discharge hemoglobin 9.6. DISCHARGE DIAGNOSES: 1. Small cell lung cancer with: 2. Liver metastases. 3. Bone metastases. 4. Severe hyponatremia. 5. Chronic obstructive pulmonary disease. 6. Nausea. 7. Anemia of chronic disease. 8. Gastroesophageal reflux disease. 9. History of triple-negative breast cancer. HOSPITAL COURSE: The patient with history of small cell lung cancer with metastases to liver and bone, followed by Dr. Vaughn. Presented with weakness, fatigue, nausea and vomiting. She had very poor p.o. intake for the last couple days. She is on chemotherapy as an outpatient. She was found to have severe hyponatremia with a sodium of 118 on presentation. This was likely due to her cancer. The patient is on Samsca at home but had not been able to take that because of her nausea and vomiting. She was given gentle hydration initially, which improved her sodium somewhat. She was then later also restarted on her Samsca, which further improved her sodium. Her rate of correction was slightly fast initially with 118 to 131 over the 1st day, but subsequently was quite appropriate. The sodium was 144 on the day of discharge. The patient's fatigue improved significantly with improvement in her sodium. Her nausea and vomiting also resolved, either with improvement in sodium or spontaneously. The patient had very slight downtrend in her hemoglobin, but it was largely stable reviewing her previous labs. Her other chronic comorbidities including GERD and COPD were stable during the hospitalization. At the patient was tolerating diet, had no more vomiting, and her sodium was appropriate, she was discharged home to follow up with PCP and Oncology. DISCHARGE VITALS: Temperature 98.0 degrees, pulse 78, respirations 18, blood pressure 135/73, O2 saturation 100% on room air. DISCHARGE DIET: Regular. DISCHARGE MEDICATIONS: Gabapentin 800 mg p.o. q.6 hours, Celebrex as previously prescribed, cyclobenzaprine as previously prescribed, lorazepam as previously prescribed, Marinol 10 mg p.o. b.i.d., morphine extended release 50 mg p.o. b.i.d., Portia 10 four times a day as needed, omeprazole 40 mg p.o. daily, Seroquel 25 mg p.o. at bedtime, Trelegy Ellipta inhaler, 1 puff daily, Zofran 4 mg p.o. as needed, Phenergan 25 mg suppository q.6 hours as needed, Robitussin AC 10 mL p.o. q.4-6 hours as needed, tolvaptan 15 mg p.o. daily. FOLLOWUP AND PLAN: The patient discharging home on her home dose of Samsca to follow up with PCP and Oncology. TIME SPENT: Greater than 30 minutes spent arranging discharge and counseling patient.
== END 2019-09-13 12:14 | disposition home health service (06) | DRG 641 ==
LOC: ED 11:34 → SUATTDRO 15:56 → EDIPHOLD 15:56 → 3N 19:24
PROVIDERS: ATTEND Internal Medicine

== ENCOUNTER 2019-09-23 02:09 | Inpatient (IN) ==
[2019-09-23] MEDS ORDERED: NS 1,000 ML IV ONE ×2 (02:45→04:10)
[2019-09-23 03:07] LABS: BASO# 0.03 X1000 (0.0-0.2); BASO% 0.7 % (0.0-0.8); EOS# 0.22 X1000 (0.0-0.7); EOS% 5.2 % (0.0-10.0); HEMATOCRIT 29.2 % (37.0-47.0); HEMOGLOBIN 10.1 g/dL (12.0-16.0); IMM GRAN# 0.02 X1000 (0.0-0.04); IMM GRAN% 0.5 % (0.0-0.5); LYMPH# 1.02 X1000 (1.2-3.4); LYMPH% 23.9 % (20.5-51.1); MCH 31.7 PG (27-31); MCHC 34.6 g/dL (33-37); MCV 91.5 FL (81-99); MONO# 0.72 X1000 (0.11-0.59); MONO% 16.9 % (1.7-9.3); MPV 9.3 FL (7.4-10.4); NEUT# 2.25 X1000 (1.4-6.5); NEUT% 52.8 % (42.2-75.2); PLT 290 X1000 (130-400); RBC 3.19 XMIL (4.2-5.4); RDW 16.4 % (11.5-14.5); WBC 4.26 X1000 (4.8-10.8)
[2019-09-23 03:53] LABS: ESTIMATED GFR > 60
--- NOTE | 2019-09-23 04:04 | PROVIDER DOCUMENTATION ---
HPI-General Adult - General Chief Complaint: Overdose Stated Complaint: Possible Overdose Time Seen by Provider: 09/23/19 02:29 Source: patient Allergies/Adverse Reactions: Patient Allergies Allergy/AdvReac Type Severity Reaction Status Date / Time butorphanol tartrate * Allergy Mild NAUSEA Verified 09/07/19 13:47 [From Stadol] baclofen AdvReac Unknown Verified 09/07/19 13:47 Home Medications: Home Medication List Medication Instructions Recorded Confirmed Last Taken Type Gabapentin [Neurontin] 800 mg PO Q6HR 05/10/16 09/07/19 09/06/19 07:00 History Hydrocodone/APAP 10 mg/325 mg 1 each PO 4XDAY PRN PRN 02/13/18 09/07/19 09/06/19 07:00 History [[place]-10] Omeprazole [Prilosec] 40 mg PO DAILY 02/13/18 09/07/19 09/06/19 07:00 History Celecoxib 1 cap PO DAILY 07/16/19 09/07/19 09/06/19 07:00 History Cyclobenzaprine HCl 10 mg PO TID 07/16/19 09/07/19 09/06/19 07:00 History Dronabinol [Marinol] 10 mg PO BID 07/16/19 09/07/19 09/06/19 07:00 History Fluticasone/Umeclidin/Vilanter 1 puff INH DAILY 07/16/19 09/07/19 Unknown Hist ory [Trelegy Ellipta 100-62.5-25] Lorazepam 1 tab PO BID 07/16/19 09/07/19 09/06/19 07:00 History Ondansetron HCl [Zofran] 4 mg PO PRN PRN 07/16/19 09/07/19 09/06/19 07:00 History Quetiapine Fumarate 50 mg PO HS 07/16/19 09/07/19 09/05/19 19:00 History Tolvaptan [Samsca] 15 mg PO DAILY #30 tab 07/25/19 09/07/19 09/06/19 07:00 Rx Morphine E.r. [Ms Contin] 15 mg PO BID 09/07/19 09/07/19 09/06/19 07:00 History Guaifenesin/Codeine [Robitussin-AC] 10 ml PO Q4-6H PRN PRN #0 udc 09/13/19 Unknown Rx Promethazine [Phenergan] 25 mg NH Q6H PRN PRN #30 supp 09/13/19 Unknown Rx - History of Present Illness -Gen Adult Nature of Presenting Problems: 63 y/o WF with hx of cancer comes to ER c/o weakness and collapse tonight at home. Pt states that she has low sodium at times that makes her weak and she fell at home tonight but denies any injury. Family with pt state that she collapsed at home and was unresponsive. Family is concerned that pt may have taken too many of her pain pills and combined that with alcohol. Pt denies taking more than recommended dose of pain meds and is AOx3 in the ER. Location of Pain/Injury: reports: none Pain Radiation: reports: no radiation Quality of Pain: reports: none Severity: reports: mild Onset/Duration: reports: 1-3 hours ago Timing: reports: improving Context/Activities at Onset: reports: rest Modifying Factors: improves with: movement Associated Symptoms: reports: weakness Similar Symptoms Previously?: Yes Recently seen or treated by another doctor?: No - Sickle Cell Pain Related Context Sickle Cell Pain Location: denies: none, head, face, mouth, neck, chest, upper extremity, hand(s), abdomen, back, pelvis, genitalia, lower extremity, feet, upper body, lower body, generalized, other Review of Systems - Adult - REVIEW OF SYSTEMS - ADULT Constitutional: reports: no symptoms reported, see HPI Eyes: reports: no symptoms reported, see HPI Ears, Nose, Mouth & Throat: reports: no symptoms reported, see HPI Cardiovascular: reports: no symptoms reported, see HPI Respiratory: reports: no symptoms reported, see HPI Gastrointestinal: reports: no symptoms reported, see HPI Genitourinary: reports: no symptoms reported, see HPI Musculoskeletal: reports: no symptoms reported, see HPI Integumentary: reports: no symptoms reported, see HPI Neurological: reports: see HPI, other (weakness) Psychiatric: reports: no symptoms reported, see HPI Endocrine: reports: no symptoms reported, see HPI Hematologic/Lymphatic: reports: no symptoms reported, see HPI Allergic/Immunologic: reports: no symptoms reported, see HPI All Other Systems: Reviewed and Negative Past History - Adult - PAST MEDICAL HISTORY-ADULT Review of Records: reports: Nursing Assessment Review, Medications Reviewed, S ocial history reviewed & non-contributory. Major Childhood Illnesses: reports: history unknown Cardiovascular: reports: denies history Respiratory: reports: COPD Gastrointestinal: reports: GERD Obstetrical/Gynecological: reports: denies history Genitourinary: reports: denies history Musculoskeletal: reports: arthritis, intervertebral disc disease, osteoporosis, other Neurological: reports: denies history Psychiatric: reports: anxiety Endocrine/Immune: reports: thyroid disorder, other (breast cancer) Other Conditions: reports: denies history - PRIOR SURGERIES/PROCEDURES Surgical/Procedure History: reports: appendectomy, hysterectomy, orthopedic (extremity), other (mastectomy) - IMMUNIZATION STATUS Childhood Immunizations: See Nurse Assessment Flu Vaccine: See Nurse Assessment - FAMILY HISTORY Family History: reviewed, not pertinent Physical Exam-General - PHYSICAL EXAM-ADULT Initial Vital Signs Reviewed: Yes - CONSTITUTIONAL General Appearance: appears well, alert, no apparent distress - EYES Eyes: PERRL/EOMI - HEAD, EARS, NOSE, MOUTH & THROAT HENMT: normocephalic/atraumatic, moist mucous membranes, normal ENT inspection - NECK Neck: non-tender, full range of motion, supple, normal inspection - RESPIRATORY Respiratory: chest non-tender, lungs clear, normal breath sounds, no pleuratic chest pain, no respiratory distress, no accessory muscle use - CARDIOVASCULAR Cardiovascular: normal peripheral pulses, regular rate, rhythm, no edema, no gallop, no JVD, no murmur - GASTROINTESTINAL (ABDOMEN) Abdominal Exam: normal bowel sounds, non tender, soft, no organomegaly, no pulsatile mass - LYMPHATIC Lymphatic: no adenopathy - MUSCULOSKELETAL Back Exam: normal inspection, no CVA tenderness, no vertebral tenderness Extremity: normal range of motion, non-tender, normal gait, normal inspection, no pedal edema, no calf tenderness, normal capillary refill - SKIN Integumentary: normal color, normal turgor - NEUROLOGIC Neurologic: parent trainer II-XII nml as tested, grossly normal, no motor/sensory deficits - PSYCHIATRIC Psych/Mental Status: normal mood/affect, normal thought content, normal thought process, oriented x 3 Progress - PLAN OF CARE/RESULTS Progress/Plan/Lab Results: Vital Signs - 8 hr 09/23/19 02:10 09/23/19 02:30 Temperature 97.9 F 98.2 F Pulse Rate 89 78 Respiratory Rate 20 16 Blood Pressure 80/53 132/73 O2 Sat by Pulse Oximetry 98 99 Laboratory Results - last 24 hr 09/23/19 09/23/19 02:50 02:50 WBC 4.26 L RBC 3.19 L Hgb 10.1 L Hct 29.2 L MCV 91.5 MCH 31.7 H MCHC 34.6 RDW Std Deviation 16.4 H Plt Count 290 MPV 9.3 Immature Gran % (Auto) 0.5 Neut % (Auto) 52.8 Lymph % (Auto) 23.9 [place] % (Auto) 16.9 H Eos % (Auto) 5.2 Baso % (Auto) 0.7 Immature Gran # (Auto) 0.02 Neut # (Auto) 2.25 Lymph # (Auto) 1.02 L [place] # (Auto) 0.72 H Eos # (Auto) 0.22 Baso # (Auto) 0.03 Estimated GFR/1.73 m2 > 60 Orders Category Date Time Status ALCOHOL BLOOD Stat Lab 09/23/19 02:50 Received CBC WITH ELECTRONIC DIFF [HEME] Stat Lab 09/23/19 02:50 Completed CK TOTAL [CHEM] Stat Lab 09/23/19 03:52 Uncollected COMPREHENSIVE METABOLIC PANEL [CHEM] Stat Lab 09/23/19 02:50 Results TROPONIN T HIGH SENSITIVITY Stat Lab 09/23/19 02:50 Completed TROPONIN T HIGH SENSITIVITY Stat Lab 09/23/19 03:52 Uncollected URINALYSIS W/POSS RFLX CULT [URINALYSIS] Stat Lab 09/23/19 02:44 Uncollected URINE DRUG SCREEN Stat Lab 09/23/19 02:44 Uncollected 0.9% Sodium Chloride Inj [Ns] 1,000 ml Med 09/23/19 02:45 Discontinued IV 999 mls/hr EKG [EKG] Stat Ther 09/23/19 02:44 Ordered Result Diagrams: 09/23/19 02:50 09/23/19 02:50 - CONSULTS/PCP/HOSPITALIST Notification #1 *Consult/PCP/Hospitalist*: Dr Hernandez Time Discussed: 05:10 Consult Disposition: Will see in ED, Admit Departure - Departure Date of Disposition Decision: 09/23/19 Time of Disposition Decision: 04:06 DIAGNOSIS: Hyponatremia, Fall, Weakness Disposition: ADMITTED INPATIENT 09 Certified Medical Emergency: Emergent Condition: Fair Referrals and Follow-Ups: Vipul Chapman MD [Primary Care Provider] - - Critical Care Note This patient required my direct & personal management of CC.: No Attestation - Physician/ VIANNEY Attestation Patient care was provided by Advanced Practice Provider:: No The physician spent face to face time with patient:: Yes Advanced Practice Provider documentation review:: Supervising physician onsite and consulted in the evaluation and care of this patient. The physician did have a face to face encounter with the patient.
[2019-09-23 04:16] LABS: AGAP 15; ALB/GLOB RATIO 1.6; ALBUMIN 3.4 g/dL (3.5-5.0); ALKALINE PHOSPHATASE 139 U/L (32-104); BUN 13 mg/dL (8-22); CALCIUM 8.6 mg/dL (8.8-10.2); CHLORIDE 86 mmol/L (98-107); COSMO 243; CREATININE 0.8 mg/dL (0.5-0.9); GLUCOSE 83 mg/dL (70-104); GOT 30 U/L (10-30); GPT 19 U/L (10-36); POTASSIUM 3.9 mmol/L (3.5-5.1); SODIUM 121 mmol/L (136-145); TCO2 20 mmol/L (25-35); TOTAL BILIRUBIN < 0.15 mg/dL (0.20-1.00); TOTAL PROTEIN 5.5 g/dL (6.3-8.3)
[2019-09-23] MEDS ORDERED: NICODERM PATCH TD PRN (06:35)
[2019-09-23] MEDS ORDERED: NS 1,000 ML IV SCH (06:35)
[2019-09-23] MEDS ORDERED: ZOFRAN PO PRN (06:35)
[2019-09-23] MEDS ORDERED: ROBITUSSIN-AC PO PRN (06:35)
[2019-09-23] MEDS ORDERED: NORCO-10 PO PRN (06:35)
[2019-09-23] MEDS ORDERED: DUONEB (A & A) INH PRN (06:44)
[2019-09-23] MEDS ORDERED: LIBRIUM PO PRN (06:46)
--- NOTE | 2019-09-23 06:51 | EKG Report ---
Test Performed on : 09/23/2019 03:18:42 AM Test Reason : weakness Blood Pressure : / mmHG Vent. Rate : 092 BPM Atrial Rate : 092 BPM P-R Int : 152 ms QRS Dur : 086 ms QT Int : 386 ms P-R-T Axes : 072 081 078 degrees QTc Int : 477 ms Normal sinus rhythm. Normal ECG When compared with ECG of 07-SEP-2019 12:04, (Unconfirmed) No significant change was found Unconfirmed Result
[2019-09-23] MEDS ORDERED: NS 1,000 ML ONE (06:54)
--- NOTE | 2019-09-23 07:01 | HISTORY AND PHYSICAL ---
CHIEF COMPLAINT: Loss of consciousness prior to admission. HISTORY OF PRESENT ILLNESS: Ms. Rebeca Ramirez is a 63-year-old female, and she does have a history of lung cancer, COPD, gastroesophageal reflux disease, and anemia. The patient did experience a brief period of loss of consciousness prior to admission. She denies any headaches or chest pain. The patient was noted to be unresponsive for about 10 minutes according to patient's significant other. The patient does have stage IV small cell lung cancer currently receiving chemotherapy as well as immune therapy under the care of Dr. Vaughn. She has been receiving these since July according to the patient. The patient indicates that typically she experiences loss of consciousness when her sodium level drops. Sodium level at the time of presentation was found to be 121. The patient will be admitted to the floor now for further management. PAST MEDICAL HISTORY: 1. COPD. 2. Gastroesophageal reflux disease. 3. Anxiety disorder. 4. Chronic kidney disease. 5. History of thyroid nodule. 6. History of breast cancer. 7. History of lung cancer. PAST SURGICAL HISTORY: She has had bilateral mastectomy. SOCIAL HISTORY: Patient smokes cigarettes and drinks alcohol. No drug use. ALLERGIES: No known drug allergies. FAMILY HISTORY: Positive for cancer. MEDICATIONS: Include the followin. Gabapentin 800 mg every 6 hours. 2. Hydrocodone/acetaminophen one 4 times a day p.r.n. 3. Omeprazole 40 mg p.o. daily. 4. Celebrex 1 capsule daily. 5. Cyclobenzaprine 10 mg p.o. 3 times a day. 6. Trilogy Ellipta 1 puff daily. 7. Lorazepam 1 tab twice a day. 8. Zofran 4 mg p.r.n. 9. Seroquel 50 mg at bedtime. 10. Samsca 50 mg p.o. daily. 11. Morphine ER 50 mg p.o. twice a day. 12. Robitussin AC 10 mL q.4-6 hours p.r.n. 13. Phenergan 25 mg every 6 hours p.r.n. REVIEW OF SYSTEMS: Constitutional: No fever. No headaches. HEENT: Eyes: Uses glasses. Cardiovascular: No chest pain. Respiratory: He denies cough. : No dysuria. Musculoskeletal: He has joint pains. Hematology: No bleeding problems. Dermatology: No skin lesions. Endocrine: No thyroid disease or diabetes. Psychiatric: No anxiety or depression. PHYSICAL EXAMINATION: VITAL SIGNS: Temperature 98.2 degrees, pulse 78, respiratory 16, blood pressure 132/73, and oxygen saturation is 99%. HEENT: Atraumatic and normocephalic. CARDIOVASCULAR: S1, S2. RESPIRATORY: He has evidence of good air entry bilaterally. ABDOMEN: Soft and nontender. No masses felt. EXTREMITIES: No evidence of edema. CENTRAL NERVOUS SYSTEM: No obvious focal deficit noted. LABORATORY DATA: WBCs 4.26, hematocrit 29.2 with a platelet count of 290,000. Sodium 121, potassium 3.9, chloride 86, bicarb 20, BUN is 13, and creatinine 0.8. Alkaline phosphatase 139. Alcohol level is 40. ASSESSMENT AND PLAN: 1. Syncope. We will place patient on telemetry and get serial cardiac enzymes. Maintain patient on intravenous fluids. Obtain a CT scan of the brain without contrast. Carotid Doppler study as well as 2D echo of the heart. 2. Hyponatremia. Maintain patient on intravenous fluids. Restrict fluid intake orally. Check urine electrolytes, TSH level, as well as cortisol level. Continue Samsca. Follow up on sodium level. 3. History of lung cancer. Consult with Oncology. 4. Alcoholism. Maintain patient on delirium tremens prophylaxis. Maintain patient on thiamine and folic acid as well. Check mag and phos levels, and replace those if needed. Maintain patient on multivitamin. 5. Tobacco use history. I recommend nicotine patch. 6. Anemia. Check B12 level, folate level as well as iron studies along with stool for occult blood. 7. COPD. Nebulized bronchodilators as needed. 8. Gastroesophageal reflux disease. PPI. 9. Deep vein thrombosis prophylaxis. Sequential compression devices. 10. Gastrointestinal prophylaxis. Proton pump inhibitor. cc: MD MICK Mota
--- NOTE | 2019-09-23 07:30 | Diag Imaging Result Doc PS360 ---
CHEST-1 VIEW - 09/23/2019 INDICATION: lung ca COMPARISON: 09/07/2019 FINDINGS: Stable left chest port in good position. Lung volumes are lower. There is some increasing central atelectasis or mild pulmonary edema. There are probably some curly B lines bilaterally. Heart size is top normal. No pneumothorax or large pleural effusion. IMPRESSION: Lower lung volumes. Probable mild interstitial pulmonary edema. Electronically signed by Amanuel Eastman 09/23/2019 7:27 AM
--- NOTE | 2019-09-23 07:39 | Diag Imaging Result Doc PS360 ---
EXAM: CT HEAD W/O CONTRAST HISTORY: syncope TECHNIQUE: CT head without contrast COMPARISON: 07/15/2019 FINDINGS: No parenchymal hemorrhage. No epidural or subdural hematoma. No subarachnoid hemorrhage. No mass identified on this noncontrasted exam. Old left basal ganglia lacunar infarct. This is unchanged. No hydrocephalus. No sinus opacification. IMPRESSION: No hemorrhage. No change. This exam was performed using automated exposure control, adjustment of mA or kV according to patient size, and/or use of iterative reconstruction technique. Electronically signed by Mich Helms 09/23/2019 7:37 AM
[2019-09-23] MEDS ORDERED: NEURONTIN PO SCH (08:00)
[2019-09-23 08:37] LABS: URINE SOURCE CLEAN CATCH
[2019-09-23] MEDS: DUONEB (A & A) INH SCH ×5 (08:45→23:39)
[2019-09-23 08:47] LABS: BILIRUBIN URINE NEGATIVE (NEGATIVE); BLOOD URINE NEGATIVE (NEGATIVE); COLOR YELLOW; GLUCOSE URINE NEGATIVE (NEGATIVE); KETONE URINE NEGATIVE (NEGATIVE); LEUKOCYTES URINE NEGATIVE (NEGATIVE); NITRITE URINE NEGATIVE (NEGATIVE); PH URINE 6.5; PROTEIN URINE NEGATIVE (NEGATIVE); SP GRAVITY URINE 1.018; TURBIDITY URINE CLEAR (CLEAR); UROBILINOGEN URINE NORMAL (NORMAL)
[2019-09-23 08:49] LABS: UR EPITHELIAL CELLS <10 /HPF (<10); URINE BACTERIA NEGATIVE /HPF; URINE RBC <10 /HPF (<10); URINE WBC <10 /HPF (<10)
[2019-09-23 08:56] LABS: UR AMPHETAMINES QUAL NONE DETECTED (NONE DETECT); UR BARBITUATES QUAL NONE DETECTED (NONE DETECT); UR BENZODIAZEPIN QUAL NONE DETECTED (NONE DETECT); UR CANNABINOIDS QUAL NONE DETECTED (NONE DETECT); UR COCAINE QUAL NONE DETECTED (NONE DETECT); UR METHADONE QUAL NONE DETECTED (NONE DETECT); UR OPIATES QUAL PRESUMPTIVE POSITIVE (NONE DETECT); UR OXYCODONE QUAL NONE DETECTED (NONE DETECT); UR PCP QUAL NONE DETECTED (NONE DETECT)
[2019-09-23] MEDS ORDERED: FLEXERIL PO SCH (09:00)
[2019-09-23] MEDS ORDERED: SAMSCA PO SCH (09:00)
[2019-09-23] MEDS ORDERED: FOLIC ACID 1 MG in NS 50 ML IV SCH (09:00)
[2019-09-23] MEDS ORDERED: MS CONTIN PO SCH ×2 (09:00→21:00)
--- NOTE | 2019-09-23 10:50 | PROGRESS NOTE ---
DATE: 09/23/2019 I evaluated the patient in the emergency room. Ms. Ramirez is feeling better. Denies any chest pain or shortness of breath. She states she has occasionally been making greenish sputum which has been ongoing since the last few days. However, she denies any fevers, chills, or shortness of breath. She states that she probably passed out because of her sodium. I discussed with her about multiple sedative hypnotic medications contributing to her drowsiness and passing-out episodes as well. VITALS: Temperature of 98.2 degrees, pulse 93, respiratory rate 16, blood pressure 99/63, saturating 98% on room air. PHYSICAL EXAMINATION: Ms. Ramirez is not in any acute distress. Oral cavity is moist. Lungs: Air entry bilaterally equal. No wheeze, rhonchi, crackles. Cardiovascular: S1, S2 normal. No murmur, rub, or gallop. Abdomen is soft, nontender. No lower extremity edema. She is alert and oriented x3. LABORATORY DATA: Her repeat sodium is pending. Initial sodium was 121. She received multiple boluses of intravenous fluids. ASSESSMENT AND PLAN: 1. Syncope. Differential includes a combination of hyponatremia and use of multiple sedative hypnotic medications including extended-release morphine, [place], lorazepam, cyclobenzaprine, gabapentin. I am holding her gabapentin and cyclobenzaprine. I decreased morphine frequency to nighttime and I decreased [place] frequency as well. I counseled her about medication interactions. 2. Hyponatremia. She has small cell lung cancer which could be contributing to syndrome of inappropriate antidiuretic hormone secretion. She received intravenous fluid boluses and I am worried she may get overcorrected. I am repeating sodium every 6 hours. Based on that, I will adjust intravenous fluid dose. She is NOT on tolvaptan because of cost issues. She already received 1 dose today. I will consider giving 2nd dose tomorrow. Continue fluid restriction. 3. History of small cell lung cancer with metastasis to bone and liver. Oncology team has been consulted. 4. Active tobacco and alcohol abuse. She was counseled about quitting these substances. She has cut down on her smoking and I encouraged her to quit it completely. She denies any previous history of alcohol withdrawal. I will keep her on thiamine and multivitamin. 5. Disposition. Monitor patient inside the hospital. Plan of care discussed with her. Her questions have been answered. cc: Myles aCrmona MD MTDD
[2019-09-23] MEDS: NORCO-10 PO PRN ×2 (11:39→20:35)
[2019-09-23] MEDS: ATIVAN PO SCH ×2 (11:40→20:16)
[2019-09-23] MEDS: CENTRUM TABLET PO SCH (11:41)
[2019-09-23] MEDS: PRILOSEC PO SCH (11:41)
[2019-09-23] MEDS: THIAMINE 100 MG in NS 50 ML IV SCH (11:45)
--- NOTE | 2019-09-23 13:33 | ECHO REPORT ---
ORDER DATE: 09/23/2019 INTERPRETING PHYSICIAN: Dr. Aleaxnder Kim. ECHOCARDIOGRAPHIC MEASUREMENTS: 1. Interventricular septum: 0.7 cm. 2. Left ventricular posterior wall: 0.8 cm. 3. Diastolic diameter: 4.8 cm. 4. Left atrium: 3.3 cm. 5. Aorta: 3.0 cm. SUMMARY OF THE 2-DIMENSIONAL IMAGIN. Normal left ventricular cavity size. Estimated ejection fraction of 60%. 2. Aortic valve leaflets are trileaflet. 3. Mitral valve was normal. 4. Tricuspid valve was normal. 5. Pulmonic valve was normal. 6. There is no aortic stenosis. 7. There is mild aortic regurgitation. 8. There is mild mitral regurgitation. 9. Mild tricuspid regurgitation. Peak velocity across the tricuspid valve was 2 m/sec. 10. Prominent eustachian valve noted in the right atrium. 11. There is no pericardial effusion or obvious intracardiac mass or thrombus seen. cc: MD Hector Stiles MD
[2019-09-23] MEDS: SEROQUEL PO SCH (20:16)
[2019-09-24] MEDS: DUONEB (A & A) INH SCH ×6 (03:31→23:18)
[2019-09-24] MEDS: NORCO-10 PO PRN ×4 (04:36→20:45)
[2019-09-24] MEDS: PRILOSEC PO SCH ×2 (05:57→20:43)
[2019-09-24] MEDS ORDERED: NON-FORMULARY MED (Fluticasone/Umeclidin/Vilanter [Trelegy Ellipta 100-62.5-25] 1 PUFF) INH SCH (07:30)
[2019-09-24 08:00] LABS: BASO# 0.03 X1000 (0.0-0.2); BASO% 0.7 % (0.0-0.8); EOS# 0.06 X1000 (0.0-0.7); EOS% 1.4 % (0.0-10.0); HEMATOCRIT 31.4 % (37.0-47.0); HEMOGLOBIN 10.4 g/dL (12.0-16.0); LYMPH# 0.69 X1000 (1.2-3.4); LYMPH% 16.5 % (20.5-51.1); MCH 30.8 PG (27-31); MCHC 33.1 g/dL (33-37); MCV 92.9 FL (81-99); MONO% 14.4 % (1.7-9.3); MPV 9.6 FL (7.4-10.4); PLT 319 X1000 (130-400); RBC 3.38 XMIL (4.2-5.4); RDW 17.2 % (11.5-14.5); WBC 4.18 X1000 (4.8-10.8)
[2019-09-24 08:09] LABS: MAGNESIUM 2.2 mg/dL (1.5-2.7); PHOSPHORUS 3.7 mg/dL (2.7-4.5)
[2019-09-24 08:13] LABS: IRON SATURATION 15 %; TIBC 293 ug/dL; TOTAL IRON 45 ug/dL (49-151); UNBOUND IRON 248 ug/dL (112-346)
[2019-09-24 08:21] LABS: AGAP 12; ALB/GLOB RATIO 1.7; ALBUMIN 3.6 g/dL (3.5-5.0); ALKALINE PHOSPHATASE 143 U/L (32-104); BUN 9 mg/dL (8-22); CALCIUM 8.8 mg/dL (8.8-10.2); CHLORIDE 101 mmol/L (98-107); COSMO 271; CREATININE 0.7 mg/dL (0.5-0.9); ESTIMATED GFR > 60; GLUCOSE 107 mg/dL (70-104); GOT 27 U/L (10-30); GPT 17 U/L (10-36); POTASSIUM 4.5 mmol/L (3.5-5.1); SODIUM 136 mmol/L (136-145); TCO2 23 mmol/L (25-35); TOTAL BILIRUBIN 0.19 mg/dL (0.20-1.00); TOTAL PROTEIN 5.7 g/dL (6.3-8.3)
[2019-09-24 08:44] LABS: FERRITIN 224 ng/mL (13-150)
[2019-09-24] MEDS: ATIVAN PO SCH ×2 (08:48→20:44)
[2019-09-24] MEDS: CENTRUM TABLET PO SCH (08:49)
[2019-09-24] MEDS: THIAMINE 100 MG in NS 50 ML IV SCH (08:49)
--- NOTE | 2019-09-24 09:27 | Carotid Study ---
DATE: 09/23/2019 REQUESTING PHYSICIAN: Hector Chauhan MD FLASK CARRIER: Filiberto. INDICATIONS: Syncope. EQUIPMENT: [employer] Vivid E9 ultrasound system with a 9 L-D transducer. FINDINGS: Complete diagram of ultrasound images can be seen scanned into the patient's medical record. The peak systolic velocity noted on the right side is in the distal internal carotid artery and is noted to be 72. The peak systolic velocity noted on the left side is noted in the distal internal carotid artery and is noted to be 87. The calculated internal common ratio on the right is 0.61, left 0.98. Calculated stenosis on the right 0 to 39%, left 0 to 39%. There appears to be some atherosclerosis, but there does not produce a hemodynamically significant flow- limiting stenosis. Both vertebral arteries were antegrade flow. INTERPRETATION: By strict velocity criteria, no hemodynamically significant flow-limiting stenosis. cc: MD Hector Talavera MD
[2019-09-24] MEDS: FLEXERIL PO PRN (14:34)
[2019-09-24] MEDS: FOLIC ACID PO SCH (16:44)
--- NOTE | 2019-09-24 17:30 | PROGRESS NOTE ---
DATE: 09/24/2019 SUBJECTIVE: The patient states that her pain is not under control at this time. She also complains of back spasms. OBJECTIVE: Vital Signs: Temperature 98.3 degrees, blood pressure 121/72, heart rate, respirations 16, O2 saturations 100% on room air. General: This is a chronically ill-appearing, elderly female lying in bed in no acute distress. Heart: S1, S2 normal. Regular rate and rhythm. Lungs: Equal air entry bilaterally. No wheezing. No rales. Abdomen: Positive bowel sounds. Soft, nontender, nondistended. Extremities: No edema. No cyanosis. Neurologic: The patient is alert and oriented x4. LABS: Sodium 136, potassium 4.5, chloride 101, CO2 23, AST 27, ALT 17, and alkaline phosphatase 143. ASSESSMENT AND PLAN: 1. Syncope. Likely secondary to the patient's severe hyponatremia. No further episodes noted in the hospital. 2. Hyponatremia likely secondary to syndrome of inappropriate antidiuretic hormone secretion. Sodium is normal at this time. We will continue to monitor closely. 3. Small cell lung cancer with metastasis to the bone and liver. Management as per the oncologist. 4. Tobacco dependence. Aware. The patient has been counseled about cessation. 5. Chronic back pain. Continue on the current pain management regimen. 6. Folate deficiency. We will start the patient on folic acid. 7. Deep vein thrombosis prophylaxis, we will start the patient on Lovenox. cc: Colette Nash MD MTDD
[2019-09-24] MEDS: MS CONTIN PO SCH (20:44)
[2019-09-24] MEDS: SEROQUEL PO SCH (20:44)
[2019-09-25] MEDS: NORCO-10 PO PRN ×4 (03:45→16:41)
[2019-09-25] MEDS: DUONEB (A & A) INH SCH ×6 (04:05→23:29)
[2019-09-25] MEDS: PRILOSEC PO SCH (06:43)
[2019-09-25 07:45] LABS: HEMATOCRIT 31.6 % (37.0-47.0); HEMOGLOBIN 10.3 g/dL (12.0-16.0); MCH 31.3 PG (27-31); MCHC 32.6 g/dL (33-37); MPV 9.4 FL (7.4-10.4); RBC 3.29 XMIL (4.2-5.4); RDW 17.8 % (11.5-14.5); WBC 4.31 X1000 (4.8-10.8)
[2019-09-25 08:35] LABS: AGAP 10; BUN 11 mg/dL (8-22); CALCIUM 9.2 mg/dL (8.8-10.2); CHLORIDE 101 mmol/L (98-107); COSMO 270; CREATININE 0.6 mg/dL (0.5-0.9); ESTIMATED GFR > 60; GLUCOSE 107 mg/dL (70-104); POTASSIUM 4.3 mmol/L (3.5-5.1); SODIUM 135 mmol/L (136-145); TCO2 24 mmol/L (25-35)
[2019-09-25] MEDS: THIAMINE 100 MG in NS 50 ML IV SCH (08:54)
[2019-09-25] MEDS: MS CONTIN PO SCH ×2 (08:54→21:52)
[2019-09-25] MEDS: FOLIC ACID PO SCH (08:54)
[2019-09-25] MEDS: ATIVAN PO SCH ×2 (08:54→21:52)
[2019-09-25] MEDS: CENTRUM TABLET PO SCH (08:55)
[2019-09-25] MEDS ORDERED: TEARISOL OPH SOLUTION BOTH EYES PRN (09:51)
--- NOTE | 2019-09-25 13:40 | Diag Imaging Result Doc PS360 ---
CHEST-1 VIEW - 09/25/2019 INDICATION: pulmonary edema COMPARISON: 09/23/2019 FINDINGS: Stable left chest port. There has been some improvement in the ill-defined central infiltrates. Heart size is normal. No pneumothorax or pleural effusion. IMPRESSION: Resolution of the pulmonary edema. Electronically signed by Amanuel Eastman 09/25/2019 1:38 PM
[2019-09-25] MEDS: PHENERGAN PR PRN (16:49)
--- NOTE | 2019-09-25 21:06 | PROGRESS NOTE ---
DATE: 09/25/2019 SUBJECTIVE: The patient is resting comfortably in bed. She continues to complain of back pain. She does complain of a mild cough. OBJECTIVE: Vital Signs: Temperature 97 degrees, blood pressure 131/68, heart rate 88, respirations 20, O2 saturation is 99% on room air. General: This is a chronically ill-appearing, elderly female, sitting up in bed in no acute distress. Heart: S1, S2 normal. Regular rate and rhythm. Lungs: Equal air entry bilaterally. No wheezing. No rales. No rhonchi. Abdomen: Positive bowel sounds. Soft, nontender, nondistended. Extremities: No edema. No cyanosis. Neurologic: Alert and oriented x3. LABORATORY AND DIAGNOSTIC DATA: Sodium 135, potassium 4.3, chloride 101, CO2 of 24, BUN 11, creatinine 0.6, glucose 107. Chest x-ray shows resolution of the pulmonary edema. ASSESSMENT AND PLAN: 1. Hyponatremia secondary to syndrome of inappropriate antidiuretic hormone secretion. The sodium appears to be stable. 2. Small cell lung cancer with metastasis to the bone and liver. Aware. Management as per the oncologist. 3. Chronic back pain. Continue on the current pain management regimen. 4. Folate deficiency. Continue on folic acid. 5. Syncope. No further episodes noted in the hospital. 6. Deep vein thrombosis prophylaxis. Continue on Lovenox. cc: Colette Nash MD MTDD
[2019-09-25] MEDS: FLEXERIL PO PRN (21:52)
[2019-09-25] MEDS: SEROQUEL PO SCH (21:53)
[2019-09-26] MEDS: DUONEB (A & A) INH SCH ×6 (03:43→23:25)
[2019-09-26] MEDS: NORCO-10 PO PRN ×3 (03:59→18:46)
[2019-09-26] MEDS: PRILOSEC PO SCH (06:06)
[2019-09-26 08:42] LABS: AGAP 5; BUN 14 mg/dL (8-22); CHLORIDE 97 mmol/L (98-107); COSMO 258; CREATININE 0.7 mg/dL (0.5-0.9); ESTIMATED GFR > 60; GLUCOSE 78 mg/dL (70-104); POTASSIUM 4.6 mmol/L (3.5-5.1); SODIUM 129 mmol/L (136-145); TCO2 27 mmol/L (25-35)
[2019-09-26] MEDS ORDERED: SAMSCA PO ONE (08:42)
[2019-09-26] MEDS: ATIVAN PO SCH ×2 (08:53→20:32)
[2019-09-26] MEDS: FOLIC ACID PO SCH (08:54)
[2019-09-26] MEDS: VITAMIN B-1 PO SCH (08:54)
[2019-09-26] MEDS: CENTRUM TABLET PO SCH (08:54)
[2019-09-26] MEDS: MS CONTIN PO SCH ×2 (08:54→20:31)
[2019-09-26] MEDS: NON-FORMULARY BULK MED INH SCH (09:24)
--- NOTE | 2019-09-26 14:12 | HEMO/ONC CONSULTATION ---
DATE: 09/23/2019 REASON FOR CONSULTATION: The patient is seen in consultation at the request of Dr. Chapman. HISTORY OF PRESENT ILLNESS: Ms. Rebeca Ramirez is a patient well known to me with a history of breast cancer and a recent diagnosis of extensive stage small cell lung cancer, who is currently on chemo immunotherapy. She presented to the emergency room with a syncopal episode. She has had recurrent hyponatremia and is on salt tablets at home because she was unable to afford Samsca. On admission, she was found to have hyponatremia with a sodium of 121. She was admitted for further management of the pain. PAST MEDICAL HISTORY: Significant for small cell lung cancer, breast cancer, thyroid nodule, chronic kidney disease, anxiety, GERD, COPD. PAST SURGICAL HISTORY: Bilateral mastectomies. ALLERGIES/MEDICATIONS: Reviewed per the chart. FAMILY MEDICAL HISTORY: Positive for cancer. SOCIAL HISTORY: Patient smoker and alcohol user. She denies any illicit drug use. REVIEW OF SYSTEMS: Pertinent positives and negatives as per HPI. All other review of systems negative. PHYSICAL EXAMINATION: Vital Signs: At the time of consultation, temperature 99 degrees, pulse 88, blood pressure 132/76, O2 saturation 98% on room air. Respiratory rate 18. General: A thin, chronically ill-appearing woman, who is tearful, but in no acute distress. She is unaccompanied at the time of consultation. Eyes: Sclerae anicteric. Cardiovascular: Regular rate and rhythm. Normal S1, S2. No murmurs, rubs, or gallops. Pulmonary: Lungs clear to auscultation bilaterally without wheezes, rales, or rhonchi. GI/Abdomen: Soft, nontender, nondistended with normoactive bowel sounds. Extremities: No clubbing, cyanosis, or edema. Neurologic: Alert and oriented x3. No focal deficits. Gait not assessed; the patient in the hospital bed. X-RAYS: 1. A chest x-ray 09/23/2019 shows low lung volumes with probably mild interstitial edema. 2. Head CT shows no hemorrhage, no acute disease. LABS: Sodium is 121, white count 4.3, hematocrit 29, platelet count 290, creatinine 0.8. Alcohol level 40. ASSESSMENT AND PLAN: 1. Syncope: Cardiac workup is ongoing. CT of the head was reviewed and negative. No further evidence of syncope. Blood pressure stable. Continue to monitor. 2. Small cell lung cancer: Her treatment will be held until acute events resolved. Continue to monitor. 3. Hyponatremia: Sodium is improved with intravenous fluids. She is not able to obtain Samsca due to financial restrictions. She will continue on salt tablets as well. 4. Alcohol abuse: Avoid alcohol use. Continue to monitor. 5. Anemia: Her hemoglobin is 10.1. Likely multifactorial with some component of treatment- induced anemia. Vitamin studies are pending at the time of consultation. Complete those as needed. cc: MD Kev Rodriguez MD [facility]
--- NOTE | 2019-09-26 14:52 | PROGRESS NOTE ---
DATE: 09/26/2019 SUBJECTIVE: The patient is resting comfortably in bed. No acute events noted overnight. OBJECTIVE: Vital Signs: Temperature 98.1 degrees, blood pressure 102/52, heart rate 84, respirations 16, O2 saturations 100% on room air. General: This is an elderly female, lying in bed in no acute distress. Heart: S1, S2 normal. Regular rate and rhythm. Lungs: Clear to auscultation bilaterally. Abdomen: Positive bowel sounds. Soft, nontender, nondistended. Extremities: No edema, no cyanosis. Neurologic: The patient is alert and oriented x3. LABORATORY DATA: Sodium 129, potassium 4.6, chloride 97, CO2 of 27, BUN 14, creatinine 0.7, glucose 78. ASSESSMENT AND PLAN: 1. Hyponatremia secondary to syndrome of inappropriate antidiuretic hormone secretion. Will give the patient a dose of Samsca today. Will consult [facility] to assist with obtaining Samsca as an outpatient. 2. Small-cell lung cancer with metastasis to the bone and liver. Aware. 3. Chronic back pain. Continue on the current pain regimen. 4. Syncope. Aware. 5. Folate deficiency. Continue with folic acid. 6. Deep vein thrombosis prophylaxis. Continue on Lovenox. 7. Will consult Physical Therapy. cc: Colette Nash MD
[2019-09-26] MEDS: SEROQUEL PO SCH (20:32)
[2019-09-26] MEDS: FLEXERIL PO PRN (20:32)
[2019-09-27] MEDS: NORCO-10 PO PRN ×3 (00:53→21:50)
[2019-09-27] MEDS: DUONEB (A & A) INH SCH ×6 (03:45→23:18)
[2019-09-27] MEDS: PRILOSEC PO SCH ×2 (05:57→10:07)
[2019-09-27 08:06] LABS: AGAP 11; BUN 13 mg/dL (8-22); CALCIUM 9.6 mg/dL (8.8-10.2); CHLORIDE 103 mmol/L (98-107); COSMO 275; CREATININE 0.8 mg/dL (0.5-0.9); ESTIMATED GFR > 60; GLUCOSE 83 mg/dL (70-104); POTASSIUM 4.2 mmol/L (3.5-5.1); SODIUM 138 mmol/L (136-145); TCO2 24 mmol/L (25-35)
[2019-09-27] MEDS: ATIVAN PO SCH ×2 (10:08→21:46)
[2019-09-27] MEDS: CENTRUM TABLET PO SCH (10:08)
[2019-09-27] MEDS: FOLIC ACID PO SCH (10:08)
[2019-09-27] MEDS: MS CONTIN PO SCH ×2 (10:08→21:45)
[2019-09-27] MEDS: VITAMIN B-1 PO SCH (10:08)
[2019-09-27] MEDS: ATIVAN IV PRN ×2 (11:59→23:52)
--- NOTE | 2019-09-27 20:48 | HEMO/ONC PROGRESS NOTE ---
DATE: 09/27/2019 SUBJECTIVE: Ms Ramirez is in no acute distress. OBJECTIVE: Vital Signs: Temperature 98.2 degrees, heart rate 72, respirations 16, blood pressure 93/56, O2 saturation 97% on room air. LABS: No new CBC but sodium is up to 138 after it dipped down to 129 yesterday. PHYSICAL EXAM: Cardiovascular: S1, S2 heard. Respiratory: Coarse breath sounds throughout. Gastrointestinal: Abdomen is nondistended. Extremities: Some trace bilateral lower extremity edema. ASSESSMENT AND PLAN: 1. Extensive stage small cell lung cancer. Treatment is currently on hold while the patient is in the hospital. We will plan to resume treatment once she is out and improved. 2. Hyponatremia. Ongoing problem. This is related to her small cell lung cancer. She has tried salt tablets previously, but they have been ineffective. It looks like they are going to try to go ahead and get her Samsca. This would be definitely a viable option as long as there is a long-term plan in order for the patient to continue to receive Samsca as an outpatient. She is unable to afford the prescription, so only providing her with a short course would not be effective long-term. Otherwise, our hope is to treat her cancer, and hopefully this will prove improve over time. I do believe that they have consulted social work and will be happy to work with them any way that we can. 3. Folic acid deficiency. She is now on folic acid. 4. Chronic back pain. Continue current pain regimen. Dictated by KI Tracey for Miladys Vaughn MD cc: Miladys Vaughn MD Pt seen and examined and above note reflects my history, physical exam, assessment and plan. Miladys Vaughn MD [facility]
[2019-09-27] MEDS: SEROQUEL PO SCH (21:46)
[2019-09-28] MEDS: DUONEB (A & A) INH SCH ×6 (03:23→23:44)
[2019-09-28] MEDS: PRILOSEC PO SCH (06:04)
[2019-09-28] MEDS: ATIVAN IV PRN ×2 (06:04→10:20)
[2019-09-28] MEDS: NORCO-10 PO PRN ×3 (06:08→20:40)
[2019-09-28] MEDS: NON-FORMULARY BULK MED INH SCH (07:46)
[2019-09-28] MEDS: VITAMIN B-1 PO SCH (08:38)
[2019-09-28] MEDS: CENTRUM TABLET PO SCH (08:38)
[2019-09-28] MEDS: MS CONTIN PO SCH ×2 (08:39→20:40)
[2019-09-28] MEDS: FOLIC ACID PO SCH (08:39)
[2019-09-28] MEDS: ATIVAN PO SCH ×2 (08:39→20:40)
[2019-09-28 09:06] LABS: AGAP 11; BUN 20 mg/dL (8-22); CALCIUM 9.3 mg/dL (8.8-10.2); CHLORIDE 98 mmol/L (98-107); COSMO 268; CREATININE 0.8 mg/dL (0.5-0.9); ESTIMATED GFR > 60; GLUCOSE 82 mg/dL (70-104); POTASSIUM 4.2 mmol/L (3.5-5.1); SODIUM 133 mmol/L (136-145); TCO2 24 mmol/L (25-35)
[2019-09-28] MEDS ORDERED: SAMSCA PO ONE (10:27)
--- NOTE | 2019-09-28 19:03 | PROGRESS NOTE ---
DATE: 09/28/2019 SUBJECTIVE: The patient is resting comfortably in bed. She has no complaints at this time. OBJECTIVE: Vital Signs: Temperature 98 degrees blood pressure 91/58, heart rate 86, respirations 18, O2 saturations 100% on room air. General: This is a chronically ill-appearing elderly female lying in bed in no acute distress. Heart: S1, S2 normal. Regular rate and rhythm. Lungs: Equal air entry bilaterally. No wheezing. No rales. Abdomen: Positive bowel sounds. Soft, nontender, nondistended. Extremities: No edema, no cyanosis. Neurologic: The patient is alert and oriented x4. LABS: Sodium 133, potassium 4.2, chloride 98, CO2 24, BUN 20, creatinine 0.8. ASSESSMENT AND PLAN: 1. Hyponatremia secondary to syndrome of inappropriate antidiuretic hormone secretion. We will continue on Samsca daily. I submitted the application for patient assistance for the patient to obtain Samsca as outpatient. We are currently waiting on a decision. 2. Small-cell lung cancer with metastasis to the bone and liver. Aware. 3. Chronic back pain. Continue on the current pain regimen. 4. Folate deficiency. Continue with folic acid replacement. 5. Syncope. Resolved. 6. Deep vein thrombosis prophylaxis. Continue on Lovenox. 7. Continue with physical therapy. cc: Colette Nash MD
[2019-09-28] MEDS: SEROQUEL PO SCH (20:40)
[2019-09-29] MEDS: ATIVAN IV PRN (00:49)
[2019-09-29] MEDS: DUONEB (A & A) INH SCH ×3 (03:41→11:14)
[2019-09-29] MEDS: NORCO-10 PO PRN (04:01)
[2019-09-29] MEDS: PHENERGAN PR PRN (05:23)
[2019-09-29] MEDS: PRILOSEC PO SCH (06:39)
[2019-09-29 07:30] LABS: HEMATOCRIT 35.2 % (37.0-47.0); HEMOGLOBIN 11.6 g/dL (12.0-16.0); MCH 31.5 PG (27-31); MCV 95.7 FL (81-99); MPV 9.5 FL (7.4-10.4); RBC 3.68 XMIL (4.2-5.4); RDW 16.7 % (11.5-14.5); WBC 5.5 X1000 (4.8-10.8)
[2019-09-29] MEDS: MS CONTIN PO SCH (08:03)
[2019-09-29] MEDS: FOLIC ACID PO SCH (08:03)
[2019-09-29] MEDS: VITAMIN B-1 PO SCH (08:03)
[2019-09-29] MEDS: CENTRUM TABLET PO SCH (08:03)
[2019-09-29] MEDS: ATIVAN PO SCH (08:04)
[2019-09-29 08:08] LABS: AGAP 11; BUN 17 mg/dL (8-22); CALCIUM 9.4 mg/dL (8.8-10.2); CHLORIDE 102 mmol/L (98-107); COSMO 279; CREATININE 0.8 mg/dL (0.5-0.9); ESTIMATED GFR > 60; GLUCOSE 125 mg/dL (70-104); SODIUM 138 mmol/L (136-145); TCO2 25 mmol/L (25-35)
[2019-09-29 08:31] VITALS: BP 97/59
--- NOTE | 2019-09-30 04:49 | PROGRESS NOTE ---
DATE: 09/27/2019 SUBJECTIVE: The patient is resting comfortably in bed. No acute events noted overnight. OBJECTIVE: Vital signs: Temperature 98.3 degrees, blood pressure 91/57, heart rate 81, respirations 15, O2 saturation 96% on room air. General: This is a chronically ill-appearing elderly female lying in bed in no acute distress. Heart: S1, S2, normal. Lungs: Clear to auscultation bilaterally. Abdomen: Positive bowel sounds, soft, nontender, nondistended. Extremities: No edema. Neurologic: The patient is alert and oriented x4. LABORATORIES: Sodium 138, potassium 4.2, chloride 103, CO2 24, BUN 13, creatinine 0.8. ASSESSMENT AND PLAN: 1. Hyponatremia secondary to syndrome of inappropriate antidiuretic hormone secretion. I have filled out the application to obtain approval for Samsca for the patient. We will await the decision of the drug job hand. The patient's sodium improved after receiving Samsca yesterday. 2. Small-cell lung cancer with metastasis to the bone and liver. Aware. Dr. Vaughn is following. 3. Syncope. No further episodes noted in the hospital. 4. Chronic back pain. Continue with the current pain regimen. 5. Folate deficiency. Continue with folic acid replacement. 6. Deep vein thrombosis prophylaxis. Continue on Lovenox. 7. Continue with physical therapy. cc: Colette Nash MD
--- NOTE | 2019-10-01 20:47 | DISCHARGE SUMMARY ---
ADMISSION DATE: 09/23/2019 DISCHARGE DATE: 09/29/2019 FINAL DISCHARGE DIAGNOSES: 1. Syncope secondary to severe hyponatremia. 2. Hyponatremia secondary to syndrome of inappropriate antidiuretic hormone secretion. 3. Extensive stage small-cell lung cancer. 4. Anemia of chronic disease. 5. Chronic back pain. 6. Folate deficiency. CONSULTATIONS: 1. Oncology consultation with Dr. Miladys Vaughn. IMAGIN. Head CT performed on 09/23/2019, which revealed no hemorrhage. 2. Carotid Doppler study which revealed no hemodynamically significant stenosis. 3. Echocardiogram which revealed an ejection fraction of 60%. No pericardial effusion. 4. Chest x-ray performed on 09/23/2019, which revealed mild pulmonary edema. 5. Chest x-ray performed on 09/25/2019, which revealed no acute findings except for which revealed improvement in the ill-defined central infiltrates. HOSPITAL COURSE: Ms. Ramirez is a 63-year-old female with extensive stage small-cell lung cancer who presented to the ER after having a syncopal episode at home. A head CT was done initially that revealed no evidence of hemorrhage. After reviewing the patient's laboratory studies, it was noted that the patient had a sodium of 121. The patient was admitted to the hospitalist service. Given the patient's small cell lung cancer diagnosis, it was believed that the hyponatremia was secondary to syndrome of inappropriate antidiuretic hormone secretion. The patient was started on Samsca. During the patient's prior hospitalizations, Samsca was initiated and the patient was discharged home with a prescription for the medication. However, the patient was unable to afford the medication, so she never had the prescription filled with the initiation of Samsca. The patient's sodium improved and the patient's mental status improved as well. The patient was seen by her oncologist during the hospitalization. An application was placed with the Samsca assistance program and at the time of this discharge, the decision is still pending. On September 29, it was noted that the patient was missing from her room and all of her belongings were gone from the room. [employer] was called since the patient still had an IV in place. The [place] [employer] Department stated that they would investigate further. cc: Colette Nash MD
== END 2019-09-29 11:00 | disposition left against medical advice (07) | DRG 644 ==
LOC: ED 02:09 → EDIPHOLD 06:32 → SUATTDRO 06:32 → 3N 14:05
PROVIDERS: ATTEND Internal Medicine

== ENCOUNTER 2019-11-11 08:21 | Inpatient (IN) ==
[2019-11-11] MEDS ORDERED: SAMSCA PO ONE (08:48)
[2019-11-11] MEDS ORDERED: SALINE LOCK IV FLUID XX ONE (08:48)
[2019-11-11] MEDS ORDERED: TESSALON PO PRN (08:49)
[2019-11-11] MEDS ORDERED: TYLENOL PO PRN ×2 (08:49)
[2019-11-11] MEDS ORDERED: ZOFRAN IV PRN (08:49)
[2019-11-11] MEDS ORDERED: FLEXERIL PO PRN (14:01)
[2019-11-11] MEDS ORDERED: MBX SOLUTION MT PRN (14:03)
[2019-11-11] MEDS ORDERED: ROBITUSSIN-AC PO PRN (14:09)
[2019-11-11] MEDS ORDERED: PHENERGAN PR PRN (14:17)
[2019-11-11] MEDS ORDERED: MAXALT PO PRN (14:20)
[2019-11-11] MEDS: NORCO-10 PO PRN ×2 (15:07→21:31)
[2019-11-11 15:14] LABS: INR 0.94; PROTIME 12.6 Seconds (11.0-16.0)
[2019-11-11] MEDS: CELEBREX PO SCH (17:51)
[2019-11-11] MEDS: NEURONTIN PO SCH (17:51)
[2019-11-11] MEDS: ATIVAN PO SCH (17:51)
[2019-11-11] MEDS: MS CONTIN PO SCH (17:51)
[2019-11-11] MEDS ORDERED: MS CONTIN PO SCH (21:00)
[2019-11-11] MEDS ORDERED: SAMSCA PO SCH (21:00)
[2019-11-11] MEDS ORDERED: SEROQUEL PO SCH (21:00)
[2019-11-11] MEDS: COUMADIN PO SCH ×2 (21:30→21:31)
[2019-11-12] MEDS: CELEBREX PO SCH ×2 (00:09→08:12)
[2019-11-12] MEDS: MS CONTIN PO SCH (05:18)
[2019-11-12] MEDS ORDERED: PRILOSEC PO SCH (07:00)
[2019-11-12 07:50] LABS: AGAP 10; ALB/GLOB RATIO 1.1; ALBUMIN 3.2 g/dL (3.5-5.0); ALKALINE PHOSPHATASE 277 U/L (32-104); BUN 12 mg/dL (8-22); CALCIUM 8.9 mg/dL (8.8-10.2); CHLORIDE 107 mmol/L (98-107); COSMO 287; CREATININE 0.8 mg/dL (0.5-0.9); ESTIMATED GFR > 60; GLUCOSE 137 mg/dL (70-104); GOT 26 U/L (10-30); GPT 19 U/L (10-36); POTASSIUM 4.2 mmol/L (3.5-5.1); SODIUM 143 mmol/L (136-145); TCO2 26 mmol/L (25-35)
[2019-11-12 07:54] LABS: TOTAL BILIRUBIN < 0.15 mg/dL (0.20-1.00)
[2019-11-12] MEDS: ATIVAN PO SCH (08:12)
[2019-11-12] MEDS: NEURONTIN PO SCH (08:13)
[2019-11-12] MEDS: NORCO-10 PO PRN (08:15)
[2019-11-12] MEDS ORDERED: SAMSCA PO SCH (09:00)
[2019-11-12] MEDS ORDERED: MARINOL PO SCH (09:00)
[2019-11-12] MEDS ORDERED: PAXIL PO SCH (09:00)
[2019-11-12 09:33] VITALS: BP 121/62
--- NOTE | 2019-11-18 15:43 | DISCHARGE SUMMARY ---
ADMISSION DATE: 11/11/2019 DISCHARGE DATE: 11/12/2019 REASON FOR ADMISSION: Hypernatremia. DISPOSITION: The patient is discharged home same as on admission. HOSPITAL COURSE: The patient was admitted for hypernatremia. She needed Samsca treatment, which could not be obtained as an outpatient. She was admitted to the hospital, started on Samsca and a prescription was sent to the outpatient pharmacy. She tolerated treatment well and was discharged home on Samsca 30 mg daily. DISCHARGE MEDICATIONS: The patient will resume all home medications on discharge including Samsca 30 mg daily. FOLLOWUP: She will follow up in clinic as scheduled within the next 4 days. cc: Miladys Vaughn MD
== END 2019-11-12 13:00 | disposition home health service (06) | DRG 641 ==
LOC: INTOOBSV 08:21 → DIRADM 08:21 → OBSVTOIN 08:21 → 3N 08:46
PROVIDERS: ADMIT Internal Medicine; ATTEND Internal Medicine

== ENCOUNTER 2019-11-25 23:10 | Inpatient (IN) ==
[2019-11-25] MEDS ORDERED: ZOFRAN IV ONE (23:36)
[2019-11-25] MEDS: NS 1,000 ML IV SCH (23:55)
[2019-11-26] MEDS ORDERED: SODIUM CHLORIDE 0.9% INJ ONE ×3 (00:18→04:53)
[2019-11-26] MEDS ORDERED: PHENERGAN IV ONE ×2 (00:18→00:19)
[2019-11-26 00:45] LABS: BASO# 0.01 X1000 (0.0-0.2); BASO% 0.1 % (0.0-0.8); HEMATOCRIT 36.4 % (37.0-47.0); HEMOGLOBIN 12.4 g/dL (12.0-16.0); LYMPH# 0.52 X1000 (1.2-3.4); LYMPH% 7.5 % (20.5-51.1); MCH 33.1 PG (27-31); MCHC 34.1 g/dL (33-37); MCV 97.1 FL (81-99); MONO# 0.13 X1000 (0.11-0.59); MONO% 1.9 % (1.7-9.3); MPV 10.8 FL (7.4-10.4); NEUT# 6.24 X1000 (1.4-6.5); NEUT% 90.5 % (42.2-75.2); PLT 229 X1000 (130-400); RBC 3.75 XMIL (4.2-5.4); RDW 17.6 % (11.5-14.5)
[2019-11-26 01:34] LABS: AGAP 17; ALB/GLOB RATIO 1.2; ALBUMIN 3.9 g/dL (3.5-5.0); ALKALINE PHOSPHATASE 324 U/L (32-104); AMYLASE 53 U/L (20-200); BUN 16 mg/dL (8-22); CHLORIDE 99 mmol/L (98-107); COSMO 274; CREATININE 0.6 mg/dL (0.5-0.9); ESTIMATED GFR > 60; GLUCOSE 145 mg/dL (70-104); GOT 137 U/L (10-30); GPT 44 U/L (10-36); LIPASE 36 U/L (13-60); POTASSIUM 3.2 mmol/L (3.5-5.1); SODIUM 135 mmol/L (136-145); TCO2 19 mmol/L (25-35); TOTAL BILIRUBIN 0.62 mg/dL (0.20-1.00); TOTAL PROTEIN 7.2 g/dL (6.3-8.3)
[2019-11-26] MEDS ORDERED: ZOSYN 4.5 GM in NS 100 ML IV ONE (02:17)
--- NOTE | 2019-11-26 02:36 | PROVIDER DOCUMENTATION ---
This chart was entered by Meghna Hernandez Scribe, acting as scribe for Marvin Flores MD. HPI-General Adult - General Stated Complaint: sob Time Seen by Provider: 11/25/19 23:21 Source: patient, EMS Allergies/Adverse Reactions: Patient Allergies Allergy/AdvReac Type Severity Reaction Status Date / Time butorphanol tartrate * Allergy Mild NAUSEA Verified 09/23/19 05:13 [From Stadol] baclofen AdvReac Unknown Verified 09/23/19 05:13 Home Medications: Home Medication List Medication Instructions Recorded Confirmed Last Taken Type Gabapentin [Neurontin] 800 mg PO TID 05/10/16 11/11/19 09/22/19 History Hydrocodone/APAP 10 mg/325 mg 1 each PO 4XDAY PRN PRN 02/13/18 11/11/19 09/22/19 History [Lavallette-10] Omeprazole [Prilosec] 40 mg PO DAILY 02/13/18 11/11/19 09/22/19 History Celecoxib 1 cap PO TID 07/16/19 11/11/19 09/22/19 History Cyclobenzaprine HCl 10 mg PO TID 07/16/19 11/11/19 09/22/19 History Dronabinol [Marinol] 5 mg PO DAILY 07/16/19 11/11/19 09/22/19 History Fluticasone/Umeclidin/Vilanter 1 puff INH DAILY 07/16/19 11/11/19 09/22/19 History [Trelegy Ellipta 100-62.5-25] Lorazepam 1 mg PO TID 07/16/19 11/11/19 09/22/19 History Ondansetron HCl [Zofran] 4 mg PO Q6H PRN PRN 07/16/19 11/11/19 09/22/19 History Quetiapine Fumarate 50 mg PO HS 07/16/19 11/11/19 09/22/19 History Morphine E.r. [Ms Contin] 30 mg PO BID 09/07/19 11/11/19 09/22/19 History Guaifenesin/Codeine [Robitussin-AC] 10 ml PO Q4-6H PRN PRN #0 udc 09/13/19 11/11/19 09/22/19 Rx Promethazine [Phenergan] 25 mg VA Q6H PRN PRN #30 supp 09/13/19 11/11/19 09/22/19 Rx Benzonatate [Tessalon Perle] 100 mg PO 11/11/19 Unknown History Diphenhyramine/Al&mg Oh/Lido [Mbx 15 ml MT Q4H PRN PRN 11/11/19 11/11/19 Unknown History Solution] Paroxetine [Paxil] 10 mg PO DAILY 11/11/19 11/11/19 Unknown History Rizatriptan Benzoate [Rizatriptan] 10 mg PO PRN PRN 11/11/19 11/11/19 Unknown History Tolvaptan [Samsca] 15 mg PO DAILY 11/11/19 11/11/19 Unknown History Warfarin [Coumadin] 1 mg PO QHS 11/11/19 11/11/19 Unknown History - History of Present Illness -Gen Adult Nature of Presenting Problems: Patient is a 64 yowf who presents to the ED via EMS with cc of sob, abd pain and N/V/D. Per EMS patient reports stage 4 lung and liver cancer. Per EMS patient still attempts to smoke and refuse hospice, K2fymod 98-99% prior to arrival. Patient is vomiting profusely in the ED. Patient reports poor fluid & solid intake after change in chemotherapy. Reports last chemo Monday. Patient reports chills, unsure of fever. Patient is A&Ox3 with no other complaints. Location of Pain/Injury: reports: abdomen, generalized (weakness) Pain Radiation: reports: no radiation Quality of Pain: reports: aching Severity: reports: mild Onset/Duration: reports: 5 days ago Timing: reports: still present Context/Activities at Onset: reports: other (change in chemotherapy) Modifying Factors: improves with: nothing Associated Symptoms: reports: diarrhea, fatigue, fever/chills (chills), nausea, shortness of breath, vomiting, weakness (generalized) Similar Symptoms Previously?: No Recently seen or treated by another doctor?: Yes Review of Systems - Adult - REVIEW OF SYSTEMS - ADULT Constitutional: reports: see HPI, chills Eyes: reports: no symptoms reported Ears, Nose, Mouth & Throat: reports: no symptoms reported Cardiovascular: reports: no symptoms reported Respiratory: reports: see HPI, shortness of breath, other (lung cancer) Gastrointestinal: reports: see HPI, abdominal pain, diarrhea, nausea, poor appetite, vomiting Genitourinary: reports: no symptoms reported Musculoskeletal: reports: see HPI, muscle weakness (generalized) Integumentary: reports: no symptoms reported Neurological: reports: no symptoms reported Psychiatric: reports: no symptoms reported Endocrine: reports: no symptoms reported Hematologic/Lymphatic: reports: no symptoms reported Allergic/Immunologic: reports: no symptoms reported All Other Systems: Reviewed and Negative Past History - Adult - PAST MEDICAL HISTORY-ADULT Review of Records: reports: Old Records Reviewed, Nursing Assessment Review, M edications Reviewed, Social history reviewed & non-contributory. Major Childhood Illnesses: reports: history unknown Cardiovascular: reports: denies history Respiratory: reports: COPD Gastrointestinal: reports: GERD Obstetrical/Gynecological: reports: denies history Genitourinary: reports: denies history Musculoskeletal: reports: arthritis, intervertebral disc disease, osteoporosis, other Neurological: reports: denies history Psychiatric: reports: anxiety Endocrine/Immune: reports: thyroid disorder, other (breast cancer) Other Conditions: reports: denies history - PRIOR SURGERIES/PROCEDURES Surgical/Procedure History: reports: appendectomy, hysterectomy, orthopedic (extremity), other (mastectomy) - IMMUNIZATION STATUS Childhood Immunizations: See Nurse Assessment Flu Vaccine: See Nurse Assessment - FAMILY HISTORY Family History: reviewed, not pertinent - SOCIAL HISTORY Smoking: cigarettes, less than 1 pack/day Provider spent 3-5 mins advising pt. on dangers of tobacco.: Discussed manners to quit use, and f/u contacts for add'l counseling. Substance Use: denies Living Situation: family Physical Exam-General - PHYSICAL EXAM-ADULT Initial Vital Signs Reviewed: Yes - CONSTITUTIONAL General Appearance: alert, no apparent distress - EYES Eyes: PERRL/EOMI, pink conjunctivae - HEAD, EARS, NOSE, MOUTH & THROAT HENMT: normocephalic/atraumatic. negative: moist mucous membranes (dry) - NECK Neck: supple - RESPIRATORY Respiratory: chest non-tender, no respiratory distress, no accessory muscle use, rhonchi (some rhonchi). negative: normal breath sounds (diminished breath sound more on the right than left.) - CARDIOVASCULAR Cardiovascular: normal peripheral pulses, regular rate, rhythm - GASTROINTESTINAL (ABDOMEN) Abdominal Exam: soft, tenderness. negative: non tender - MUSCULOSKELETAL Extremity: normal range of motion, non-tender, normal inspection, no pedal edema , no calf tenderness - SKIN Integumentary: warm/dry - NEUROLOGIC Neurologic: grossly normal - PSYCHIATRIC Psych/Mental Status: normal mood/affect, normal thought content, normal thought process, oriented x 3 Progress - PLAN OF CARE/RESULTS Result Diagrams: 11/26/19 00:12 11/26/19 00:12 - CONSULTS/PCP/HOSPITALIST Notification #1 *Consult/PCP/Hospitalist*: d/w Dr Alberto Time Discussed: 02:08 Consult Disposition: Admit #2 Consult: d/w [place] Time Discussed: 02:10 Consult Disposition: Admit Departure - Departure Date of Disposition Decision: 11/26/19 Time of Disposition Decision: 02:30 DIAGNOSIS: Intractable nausea and vomiting, Ileus, Cholecystitis, Abdominal pain Disposition: ADMITTED INPATIENT 09 Certified Medical Emergency: Emergent Condition: Stable Referrals and Follow-Ups: Vipul Chapman MD [Primary Care Provider] - - Critical Care Note This patient required my direct & personal management of CC.: No Attestation - Physician/ VIANNEY Attestation Patient care was provided by Advanced Practice Provider:: No The physician spent face to face time with patient:: Yes Advanced Practice Provider documentation review:: Supervising physician onsite and consulted in the evaluation and care of this patient. The physician did have a face to face encounter with the patient. This chart was documented by the indicated scribe, (Meghna Hernandez Scribe) and accurately reflects the services I performed and decisions made by me, Marvin Flores MD, as attested by the provider's signature.
[2019-11-26] MEDS ORDERED: KLOR-CON PO ONE (03:14)
[2019-11-26] MEDS ORDERED: PHENERGAN IV PRN (04:29)
[2019-11-26] MEDS ORDERED: SODIUM CHLORIDE 0.9% INJ PRN (04:29)
[2019-11-26] MEDS ORDERED: POTASSIUM CHLORIDE 40 MEQ/SWI 40 MEQ/100 ML IVPB IV ONE (04:30)
[2019-11-26] MEDS: POTASSIUM CHLORIDE 20 MEQ/SWI 20 MEQ/100 ML IVPB IV SCH ×2 (04:45→07:06)
[2019-11-26] MEDS: PHENERGAN IV PRN ×4 (05:12→17:11)
[2019-11-26] MEDS: MORPHINE IV PRN ×2 (05:12→09:24)
[2019-11-26] MEDS ORDERED: TYLENOL PR PRN (05:36)
[2019-11-26 05:39] LABS: INR 0.97
[2019-11-26 05:40] LABS: PTT 31.4 Seconds (22.3-41.8)
[2019-11-26] MEDS ORDERED: DUONEB (A & A) INH PRN (05:52)
[2019-11-26] MEDS: PROTONIX IV SCH (06:54)
--- NOTE | 2019-11-26 07:23 | HISTORY AND PHYSICAL ---
PRIMARY CARE PROVIDER: Dontrell Aldana. ONCOLOGIST: Dr. Vaughn. DATE AND TIME: 11/26/2019 at 0405. CHIEF COMPLAINT: Shortness of breath, abdominal pain, nausea, vomiting, and diarrhea. HISTORY OF PRESENT ILLNESS: Ms. Ramirez is a 64-year-old, female, who is currently being treated for metastatic small-cell lung cancer. She is followed by Dr. Vaughn. She states that she did have her last chemotherapy treatment on 11/22/2019. The patient states a few days ago, she did begin to have shortness of breath, periumbilical abdominal pain, as well as nausea, vomiting, and diarrhea. The patient also reports that she has been having melena for a while. She reports generalized weakness as well. She also reports fever and chills. She denies any headache or dizziness. She has reported that she has felt a little more confused at times. The patient is awake and alert. She is oriented to person, place, though not time. She could not tell me what month it was, though was able to answer questions and follow commands. She denies any cough, though is reporting shortness of breath. She does wear reportedly nasal cannula at 3 L continuously at home. She denies any chest pain, though is reporting periumbilical abdominal pain with nausea, vomiting, and diarrhea. She denies any dysuria or urinary frequency. She denies any other pain, numbness, tingling, or swelling in extremities. Upon evaluation in the ER, she did not have any leukocytosis noted. She has not had fever, though has had nausea and vomiting, as well as diarrhea since her arrival to the ER. Laboratory results did reveal some mild hypokalemia with potassium of 3.2, and she does have elevated liver function tests. A CT chest, abdomen, and pelvis was performed, which did show innumerable liver masses, multiple bony blastic metastases. There was also probable gallbladder wall thickening. Cholecystitis could not be excluded. She also did have distention of the bowel without obstruction, mass, or inflammation, which may reflect an ileus. Please see full CT report for all detailed findings. ER physician, Dr. Flores, did contact Dr. Alberto and made him aware of the patient and her possible ileus. She will be placed inpatient admission for further treatment and evaluation. REVIEW OF SYSTEMS: A 14-point review of systems was conducted with the patient, and all were negative except for pertinent positives mentioned in the above HPI. PAST MEDICAL HISTORY: 1. Metastatic small-cell lung cancer with previous known metastases, I believe to the liver, though CT today did show that she had bony metastases as well. 2. History of breast cancer. 3. History of a thyroid nodule. 4. Chronic kidney disease. 5. Anxiety. 6. GERD. 7. COPD, on home oxygen per nasal cannula at 3 L. 8. Nicotine dependence. 9. History of alcohol abuse. PAST SURGICAL HISTORY: 1. Bilateral mastectomies. 2. Left chest port placement. SOCIAL HISTORY: The patient currently is still smoking, and does have a history of alcohol use as well, though there is no known history of illicit drug use. The patient states she does live at home. She does have a friend named Jasmeet, who does help take care of her. FAMILY HISTORY: Positive for cancer. ALLERGIES: The patient has allergies to baclofen and Stadol. HOME MEDICATIONS: 1. Cyclobenzaprine 10 mg p.o. t.i.d. 2. MBX solution 15 mL MT every 4 hours p.r.n. 3. Marinol 5 mg p.o. daily. 4. Trelegy Ellipta 100/62.5/25 inhaler 1 puff inhaled daily. 5. Neurontin 800 mg p.o. t.i.d. 6. Robitussin AC 10 mL p.o. every 4 to 6 hours p.r.n. for cough. 7. Jupiter 10 one p.o. every 6 hours p.r.n. for pain. 8. Lorazepam 1 mg p.o. t.i.d. 9. MS Contin 30 mg p.o. b.i.d. 10. Prilosec 40 mg p.o. daily. 11. Zofran 4 mg p.o. every 4 to 6 hours p.r.n. for nausea. 12. Paxil 10 mg p.o. daily. 13. Phenergan 25 mg [place] every 6 hours for nausea. 14. Seroquel 50 mg p.o. at bedtime. 15. Rizatriptan 10 mg p.o. p.r.n. 16. Samsca 15 mg p.o. daily. 17. Warfarin 1 mg p.o. at bedtime. 18. Celebrex 200 mg p.o. t.i.d., though this dose may need to be verified. DIAGNOSTIC DATA/LABORATORY RESULTS: White blood cell count is 6900, hemoglobin 12.4, hematocrit 36.4, platelet count is 229,000. PT 13, INR 0.97, PTT is 31.4. Sodium 135, potassium 3.2, chloride 99, serum bicarb of 19, BUN 16, creatinine is 0.6, with a GFR of greater than 60, glucose 145, calcium 10. Magnesium 2. Total bilirubin 0.62, AST 137, ALT 44, alkaline phosphatase is 324. Amylase 53, lipase 36. Plasma lactate is 1. CT chest, abdomen, and pelvis did show innumerable liver masses. Multiple bony blastic metastases. There was probable gallbladder wall thickening. Cholecystitis is not excluded. Distended bowel without obstruction, mass, or inflammation which may reflect ileus. Please see full CT report for all detailed findings. PHYSICAL EXAMINATION: VITAL SIGNS: Temperature 98.3 degrees, heart rate 83, respirations 22, blood pressure is 151/73, with a MAP of 93, oxygen saturation is 99% on room air. GENERAL: Ms. Ramirez is a 64-year-old, female. She does appear to be frail, somewhat emaciated. She was resting in the ER stretcher. Though she was not in any distress, she was having some nausea and dry heaves, as well as reporting pain at the time of my examination. She was awake and alert. She is only oriented to person and place. She could not tell me what month it was, though she was able to answer questions and follow commands. HEENT: Head is atraumatic, normocephalic. Pupils were round and reactive to light. It did appear as though her left pupil was approximately 3, and her right pupil was approximately 4. The patient denies any known history of her pupils being unequal previously, though the reaction was brisk. Oral mucosa is slightly dry. NECK: Supple. Trachea midline. CARDIOVASCULAR: The patient has S1, S2 present. No murmurs, gallops, or rubs appreciated, with a regular rate and rhythm. PULMONARY: The patient has symmetrical chest expansion bilaterally. Lung sounds in bilateral soto do have some slight rhonchi noted. ABDOMEN: Soft, nondistended. The patient did report generalized tenderness, and is reporting that her pain is worse in the periumbilical area. Bowel sounds were present in all 4 quadrants and were normoactive. EXTREMITIES: No cyanosis or edema noted. Pulse, motor, and sensory were intact in all extremities. Radial pulses were 2+ bilaterally. Pedal pulses were 1+ bilaterally. INTEGUMENTARY: The patient's skin is pink, warm, and dry. NEUROLOGICAL: The patient is alert and oriented to person and place, though could not tell me what month it was. Other than this, she was able to answer questions appropriately and follow commands. She is able to move all extremities. There were no focal neurological deficits noted. ASSESSMENT AND PLAN: 1. Intractable nausea, vomiting, and diarrhea. We will provide as needed antiemetics, alternating Zofran and Phenergan. Given the patient's reported diarrhea, we have ordered stool studies as well, also to include a Hemoccult stool. The patient has been reporting some melena, even prior to her diarrhea starting. We will hold any anticoagulants at this time given this report as well. We will provide gentle intravenous hydration. She will be nothing by mouth at this time. We have also ordered for her to have Protonix 40 mg intravenously every 24 hours. 2. Possible ileus. Will keep the patient nothing by mouth, and will continue with treatment as mentioned above in #1 with intravenous hydration and antiemetics. 3. Rule out possible cholecystitis. The patient was noted to have gallbladder wall thickening on her CT report. We have ordered an ultrasound of the gallbladder. Will await these results, and continue to follow. We have placed a consult with Dr. Alberto for further evaluation of possible ileus and rule out possible cholecystitis. Will await his evaluation and further recommendations for management. 4. Mild hypokalemia. This is likely secondary to her nausea, vomiting, and diarrhea. The patient is unable to tolerate oral liquids right now. Given this, we will give her potassium intravenously 40 mEq. Will repeat a BMP at approximately 1 p.m. today to recheck her potassium level. 5. Metastatic lung cancer. The patient was noted to have no metastasis to the liver, though there was metastasis to the bone noted on her CT today. The patient is reporting that she is getting active chemotherapy, and did receive her last treatment on 11/22/2019. We have placed a consult with Dr. Vaughn, her oncologist. Will await her evaluation and further recommendations for management. 6. Chronic obstructive pulmonary disease. Will continue the patient's oxygen per nasal cannula. We have placed as needed orders for DuoNeb treatments if needed. The patient has been placed on the medical floor with telemetry. We will do vital signs every 6 hours, do strict intake and output, incentive spirometry. Further orders and recommendations pending hospital course, diagnostic studies, and physician evaluation. Dictated by KATLIN Dunham for Felipe Junior MD I have performed a face to face diagnostic evaluation. Labs/Xrays- reviewed. Exam- Chest- clear, CV- regular, Abd- diffuse tenderness. A/P- N/V/D, possible ileus- Admit, NPO, supportive care, IV fluids, antiemetics. Dr. Junior cc: Felipe Junior MD [facility]
--- NOTE | 2019-11-26 07:59 | Diag Imaging Result Doc PS360 ---
EXAM: CT THORAX/ABD/PELVIS W/O CON INDICATION: abd pain TECHNIQUE: This exam was performed using automated exposure control, adjustment of mA or kV according to patient size, and/or use of iterative reconstruction technique. COMPARISON: CT PET scan dated 07/10/2019 FINDINGS: CHEST: Mild centrilobular emphysema is noted. There is a known spiculated suprahilar mass. It measures approximately 2.0 x 1.7 cm axially (2.3 x 1.9 cm previously, remeasured). This small difference may be due to differences in slice registration, however. Adjacent left hilar lymphadenopathy appears to be approximately stable. There is a calcified granuloma in the lingula. There are calcified mediastinal lymph nodes indicating prior granulomatous disease. No new lung masses or new adenopathy is appreciated. There is no cardiomegaly. Review of the bony structures reveals multiple sclerotic lesions throughout the thoracic spine and some in the ribs bilaterally that were not present on the previous study. ABDOMEN/PELVIS: There are innumerable metastatic lesions throughout the liver. Many of these lesions are confluent. This has worsened during the interval. For reference, there is a conglomerate mass at the anterior aspect of the liver on image 49 of series 4 that measures 4.3 x 3.4 cm axially (3.0 x 2.8 cm previously). The gallbladder is partially contracted. The gallbladder wall appears mildly thickened. At least some of this is due to underdistention. A component of cholecystitis cannot be excluded. The spleen, pancreas, and adrenal glands are grossly unremarkable. There is prominent left renal atrophy similar to the previous study. However, there is significant dilation of the left renal collecting system that is more prominent than the previous study. No discrete obstructing stone or other obstructing lesion can be identified. The right kidney is unremarkable. The urinary bladder is grossly unremarkable. There are fluid-filled loops of small bowel throughout the abdomen with mild distention. There is suggestion of mild small bowel wall thickening in the pelvis. Consider enteritis. There is nothing that would necessarily indicate obstruction. No free abdominal gas or significant free fluid is appreciated. The remainder of the GI tract is grossly unremarkable as imaged with unenhanced CT. There are numerous sclerotic metastases scattered throughout the lumbar spine, pelvis, and sacrum. Most if not all of these have developed during the interval. IMPRESSION: 1.Left suprahilar lung mass that measures slightly smaller than the previous study. However, this is probably due to differences in slice registration. 2.Interval worsening of diffuse metastatic disease to the liver. 3.Development of extensive sclerotic bony metastases seen throughout the spine, ribs, pelvis, and sacrum as described. 4.Multiple fluid-filled loops of small bowel with mild distention and suggestion of mild small bowel wall thickening in the pelvis. Consider enteritis. 5.Mild gallbladder wall thickening that is, at least in part, due to underdistention. A component of cholecystitis cannot be excluded in the right clinical scenario. 6.Atrophic left kidney but with an increase in the distention of the left renal collecting system as compared to the previous study. No obstructing stone is appreciated. Electronically signed by Gordo Wilson 11/26/2019 7:56 AM
--- NOTE | 2019-11-26 09:53 | Diag Imaging Result Doc PS360 ---
CHEST-PORTABLE - 11/26/2019 INDICATION: cough/fever COMPARISON: 09/25/2019 FINDINGS: Stable left chest port in good position. Stable bilateral mastectomy changes. Stable calcified granuloma in the left lung base. No infiltrates or edema. Stable COPD changes. IMPRESSION: No acute process. Electronically signed by Amanuel Eastman 11/26/2019 9:51 AM
--- NOTE | 2019-11-26 09:54 | CONSULTATION ---
DATE OF CONSULTATION: 11/26/2019 HISTORY OF PRESENT ILLNESS: Ms. Rebeca Ramirez is a 64-year-old white female with metastatic right breast cancer, who presented to the emergency department by ambulance with shortness of breath, abdominal pain, nausea and vomiting. She was evaluated, which included a CT scan of her chest, abdomen, and pelvis. There is a question about ileus and a contracted gallbladder, and I was notified while she was in the emergency department about this consult during the night. Dr. Vaughn is her medical oncologist and she has been receiving chemotherapy for metastatic breast cancer. Evidently, she continues to smoke and has refused hospice thus far. PAST SURGICAL HISTORY: Appendectomy, hysterectomy, orthopedic surgery, and right mastectomy. PAST MEDICAL HISTORY: Osteoporosis, hypothyroidism gastroesophageal reflux disease, COPD. MEDICATIONS: She takes a lot of medications, which include pain medicine, Neurontin, Prilosec, Coumadin, Paxil, Phenergan, MS Contin, Zofran, Ativan, Samsca, and also rizatriptan. ALLERGIES: Stadol and baclofen. SOCIAL HISTORY: She continues to smoke. No family was at the bedside this morning. REVIEW OF SYSTEMS: A 14-point review of systems was performed. She has metastatic cancer to her lung, liver, bone. Otherwise, 14-point review of systems was performed and was essentially negative except for the history of present illness. FAMILY HISTORY: Was reviewed but noncontributory. PHYSICAL EXAMINATION: Vital signs: The patient's heart rate is 74, blood pressure 141/70, O2 saturation is 100%. She is afebrile. She is 5 feet 4 inches, weighs 112 pounds. She rates her pain scale as 7/10 in [address] abdomen[address] A [address] scan of her chest documents a left suprahilar lung mass. A CT of the abdomen and pelvis suggests interval worsening of diffuse metastatic disease to the liver and extensive bony metastases throughout the spine, ribs, pelvis, and sacrum. Her white blood cell count is 6.9, hematocrit is 36%. BUN and creatinine are 16 and 0.6. She does have mildly elevated liver function tests but her total bilirubin is normal. Her coagulation studies are normal. General: Ms. Henry is a middle-aged white female, looks chronically ill. She has lost her hair. She is very slim. She is awake and cooperative. She is not in acute distress at this time. She has no jaundice. No oral lesions. No cervical lymphadenopathy. She has a previous mastectomy on the right. Abdomen: Slightly distended but not tightly so, not overly tender, no acute abdomen, no costovertebral tenderness. Rectal and vaginal: Exams are not performed. Extremities: She does have palpable femoral pulses. She has no significant peripheral edema. Neurologic: No focal deficits. IMPRESSION: Widely metastatic breast cancer in a patient receiving chemotherapy under the direction of Dr. Vaughn. She was admitted with multiple complaints. A CT shows widely metastatic disease as described above with possible ileus, possible contracted gallbladder. PLAN: Ms. Ramirez needs supportive care, which our Hospitalists are doing. I suspect her chemotherapy has been stopped for now. She is not a surgical candidate, and I think she is a patient of Dr. Zheng. cc: Mitzi Alberto MD
[2019-11-26] MEDS: ZOFRAN IV PRN ×2 (11:00→15:38)
[2019-11-26] MEDS: NS 1,000 ML IV SCH (12:26)
[2019-11-26] MEDS: DILAUDID IV PRN ×4 (12:26→20:08)
[2019-11-26] MEDS: OFIRMEV 1000 MG/ISOTONIC SOLN 1,000 MG/100 ML BOTTLE IV PRN (12:41)
[2019-11-26] MEDS: ZOSYN 3.375 GM in NS 50 ML IV SCH ×2 (12:47→19:26)
--- NOTE | 2019-11-26 14:51 | Diag Imaging Result Doc PS360 ---
US GB < RUQ (LIMITED) - 11/26/2019 INDICATION: Gallbladder wall thickening TECHNIQUE: COMPARISON: CT from earlier 11/26/2019 FINDINGS: The liver demonstrates numerous hypoechoic masses. These are very ill-defined, but there is probably over 50% replacement of the liver parenchyma. The gallbladder is completely collapsed. Tiny gallstone the gallbladder. Appearance is nonspecific. No biliary dilation. Common bile duct measures 5 mm. The pancreas is grossly normal. The right kidney is normal. Aorta, IVC, and main portal vein are patent. No free fluid. IMPRESSION: 1. Numerous masses in the liver compatible with metastatic disease. 2. Collapsed gallbladder with a tiny gallstone. Of doubtful significance. Electronically signed by Amanuel Eastman 11/26/2019 2:48 PM
[2019-11-26 14:57] LABS: AGAP 12; BUN 16 mg/dL (8-22); CALCIUM 8.6 mg/dL (8.8-10.2); CHLORIDE 102 mmol/L (98-107); COSMO 270; CREATININE 0.7 mg/dL (0.5-0.9); ESTIMATED GFR > 60; GLUCOSE 113 mg/dL (70-104); POTASSIUM 3.8 mmol/L (3.5-5.1); SODIUM 134 mmol/L (136-145); TCO2 20 mmol/L (25-35)
[2019-11-26] MEDS ORDERED: TORADOL IV ONE (17:23)
[2019-11-26] MEDS ORDERED: TORADOL IV PRN (17:23)
--- NOTE | 2019-11-26 17:39 | PROGRESS NOTE ---
DATE: 11/26/2019 SUBJECTIVE: The patient has no major complaints. OBJECTIVE: Blood pressure is 137/91, heart rate of 84, respiratory rate 26, temperature 98.4 degrees, T-max 101 degrees.Cardiovascular: Regular rate and rhythm. Pulmonary: Bilateral breath sounds clear to auscultation. GI: Soft, nontender, nondistended. Bowel sounds are positive. LABORATORY DATA: White count 6, hemoglobin and hematocrit 12 and 36, platelets 229,000. Basic was normal. AST and ALT of 137 and 44. PROBLEM LIST: 1. Fever of unknown origin although I think she does have some enteritis though based on her imaging so there is something there. Her chest x-ray is clear. She is not hypoxic. She just does not feel good, kind of diffuse muscle cramps things of that nature but she had chemo about a week ago. I do not feel like she has COVID-19 at this point. She does not have interstitial infiltrates. She is not hypoxic. She really has the only criteria is fever. She is immune compromised but we do not have any data that suggests she has this at this point and we have not ruled everything else out by that I mean pneumonia, enteritis and even UTI so we will pursue a CT of her chest. Again I think it is going to be unlikely to be COVID without any infiltrates on her chest x-ray. Fever alone I do not think is a criteria and we do need to rule out UTI. She is also having diarrhea and we should probably get stool samples which we still have not obtained just to rule out that. We will continue supportive measures and follow. Disposition pending her clinical status. We will continue to monitor. 2. Metastatic lung cancer with metastases to the spine. She has had decrease in size in her primary tumor but her metastatic lesions have proliferated in her skeletal metastases and in her hepatic metastases so we will continue to follow closely. She is empirically on antibiotics as well until we can rule out a major infection. cc: Kev Chapman MD
--- NOTE | 2019-11-26 18:01 | Diag Imaging Result Doc PS360 ---
EXAM: CT THORAX W/CONTRAST INDICATION: hypoxia TECHNIQUE: This exam was performed using automated exposure control, adjustment of mA or kV according to patient size, and/or use of iterative reconstruction technique. COMPARISON: Unenhanced CT chest performed earlier today. FINDINGS: Mild pulmonary emphysema is again noted. The known left suprahilar spiculated mass is again identified. The left hilar and mediastinal lymphadenopathy is better defined with the addition of IV contrast. The lee mass measures 4.5 x 2.2 cm axially. There are also calcified mediastinal and hilar lymph nodes indicating prior granulomatous disease. There is mild bronchial mucous plugging seen at the superior aspect of the left lower lobe. No new airspace consolidations are appreciated. There is no pleural fluid collection and no pneumothorax. Limited views of the upper abdomen reveals no diffuse hepatic metastatic disease. There also numerous sclerotic lesions scattered throughout the thoracic spine and several ribs consistent with known bony metastases. IMPRESSION: Mild bronchial mucous plugging at the superior aspect of the left lower lobe. Stable chest as compared to the very recent unenhanced CT, otherwise. Electronically signed by Gordo Wilson 11/26/2019 5:59 PM
[2019-11-26 18:09] LABS: URINE SOURCE CLEAN CATCH
[2019-11-26 18:15] LABS: BILIRUBIN URINE NEGATIVE (NEGATIVE); BLOOD URINE MODERATE (NEGATIVE); COLOR YELLOW; GLUCOSE URINE NEGATIVE (NEGATIVE); KETONE URINE TRACE mg/dL (NEGATIVE); LEUKOCYTES URINE NEGATIVE (NEGATIVE); NITRITE URINE NEGATIVE (NEGATIVE); PH URINE 6.5; PROTEIN URINE 30 mg/dL (NEGATIVE); TURBIDITY URINE CLEAR (CLEAR); UROBILINOGEN URINE NORMAL (NORMAL)
[2019-11-26 18:17] LABS: URINE BACTERIA 1+ /HPF; URINE RBC TNTC /HPF (<10); URINE WBC <10 /HPF (<10)
[2019-11-26 18:25] LABS: UR EPITHELIAL CELLS >10 /HPF (<10)
[2019-11-26] MEDS: FLEXERIL PO SCH (20:09)
[2019-11-26] MEDS: NEURONTIN PO SCH (20:09)
[2019-11-27] MEDS: DILAUDID IV PRN ×6 (00:32→20:46)
[2019-11-27] MEDS: PHENERGAN IV PRN ×4 (00:32→20:46)
[2019-11-27] MEDS: ZOSYN 3.375 GM in NS 50 ML IV SCH ×4 (00:32→18:32)
[2019-11-27] MEDS: ZOFRAN IV PRN (03:02)
[2019-11-27] MEDS: MORPHINE IV PRN (03:02)
[2019-11-27] MEDS: NS 1,000 ML IV SCH ×2 (05:03→16:26)
[2019-11-27] MEDS: PROTONIX IV SCH (05:05)
[2019-11-27 07:05] LABS: BASO# 0.01 X1000 (0.0-0.2); BASO% 0.2 % (0.0-0.8); EOS# 0.02 X1000 (0.0-0.7); EOS% 0.5 % (0.0-10.0); HEMATOCRIT 32.1 % (37.0-47.0); HEMOGLOBIN 10.5 g/dL (12.0-16.0); LYMPH# 1.03 X1000 (1.2-3.4); LYMPH% 23.3 % (20.5-51.1); MCH 32.8 PG (27-31); MCHC 32.7 g/dL (33-37); MCV 100.3 FL (81-99); MONO# 0.16 X1000 (0.11-0.59); MONO% 3.6 % (1.7-9.3); MPV 9.9 FL (7.4-10.4); NEUT% 72.4 % (42.2-75.2); PLT 164 X1000 (130-400); RDW 18.2 % (11.5-14.5); WBC 4.42 X1000 (4.8-10.8)
[2019-11-27 07:22] LABS: AGAP 11; BUN 11 mg/dL (8-22); CALCIUM 8.7 mg/dL (8.8-10.2); CHLORIDE 101 mmol/L (98-107); COSMO 266; CREATININE 0.6 mg/dL (0.5-0.9); ESTIMATED GFR > 60; GLUCOSE 94 mg/dL (70-104); POTASSIUM 3.6 mmol/L (3.5-5.1); SODIUM 133 mmol/L (136-145); TCO2 21 mmol/L (25-35)
[2019-11-27] MEDS: FLEXERIL PO SCH ×3 (09:15→20:36)
[2019-11-27] MEDS: PAXIL PO SCH (09:15)
[2019-11-27] MEDS: NEURONTIN PO SCH ×3 (09:15→20:35)
--- NOTE | 2019-11-27 10:33 | Diag Imaging Result Doc PS360 ---
EXAM: ABDOMEN FLAT/UPRIGHT 11/27/2019 HISTORY: sbo TECHNIQUE: Flat and upright abdomen COMMENT: There is a granuloma in the left lower lobe. There is a fair amount of gas throughout the colon. The stomach and small bowel are not particularly distended. There are no previous radiographic studies available for comparison however there was a similar appearance on the CT of 11/26/2019. IMPRESSION: Ileus. Electronically signed by Bashir Her 11/27/2019 10:30 AM
[2019-11-27] MEDS: NON-FORMULARY BULK MED INH SCH (16:08)
--- NOTE | 2019-11-27 17:01 | PROGRESS NOTE ---
DATE: 11/27/2019 SUBJECTIVE: Patient has no major complaints. OBJECTIVE: Vitals: Blood pressure is 140/69, heart rate is 60, respiratory rate of 17, temperature 98.2 degrees. Cardiovascular: Regular rate and rhythm. Pulmonary: Bilateral breath sounds clear to auscultation. GI: Soft, nontender, nondistended. Bowel sounds are positive. LABORATORY DATA: White count 4, hemoglobin and hematocrit 10 and 32, platelets 164,000. Basic was normal. PROBLEM LIST: 1. Fever, although now I think this is bronchitis. She has not had a fever since yesterday. She does not have a white count. She is a status post chemotherapy patient. She does have some hematuria, but there was no evidence of stone or anything like that on her scan. So I am going to continue her antibiotics. To me, she looks better, and she has not had any further fevers. So we will continue to monitor. I am going to continue her pain medicine because she has not been on her regular pain medicine. 2. Disposition. I anticipate possible discharge in next 1 or 2 day. She is having a lot of pain, but I am suspicious this is related to her metastatic disease and not anything else. I would appreciate Heme-Onc to give an opinion about that, and we will follow. cc: Kev Chapman MD [facility]
[2019-11-27] MEDS: ATIVAN PO SCH (17:15)
[2019-11-27] MEDS: SEROQUEL PO SCH (20:33)
[2019-11-27] MEDS: MS CONTIN PO SCH (20:36)
[2019-11-28] MEDS: PHENERGAN IV PRN ×2 (00:33→04:52)
[2019-11-28] MEDS: DILAUDID IV PRN ×5 (00:33→18:03)
[2019-11-28] MEDS: ZOSYN 3.375 GM in NS 50 ML IV SCH ×4 (00:34→18:10)
[2019-11-28] MEDS: SODIUM CHLORIDE 0.9% INJ SCH ×2 (00:34→04:56)
[2019-11-28] MEDS: NS 1,000 ML IV SCH ×3 (00:35→15:21)
[2019-11-28] MEDS: PROTONIX IV SCH (04:55)
[2019-11-28 07:12] LABS: BASO# 0.02 X1000 (0.0-0.2); BASO% 0.6 % (0.0-0.8); EOS# 0.07 X1000 (0.0-0.7); EOS% 2.3 % (0.0-10.0); HEMATOCRIT 29.8 % (37.0-47.0); HEMOGLOBIN 9.7 g/dL (12.0-16.0); LYMPH# 0.73 X1000 (1.2-3.4); LYMPH% 23.5 % (20.5-51.1); MCH 32.9 PG (27-31); MCHC 32.6 g/dL (33-37); MONO# 0.22 X1000 (0.11-0.59); MONO% 7.1 % (1.7-9.3); MPV 10.2 FL (7.4-10.4); NEUT# 2.06 X1000 (1.4-6.5); NEUT% 66.5 % (42.2-75.2); PLT 123 X1000 (130-400); RBC 2.95 XMIL (4.2-5.4); RDW 17.4 % (11.5-14.5)
[2019-11-28 07:28] LABS: AGAP 10; BUN 9 mg/dL (8-22); CALCIUM 8.2 mg/dL (8.8-10.2); CHLORIDE 100 mmol/L (98-107); COSMO 262; CREATININE 0.6 mg/dL (0.5-0.9); ESTIMATED GFR > 60; GLUCOSE 76 mg/dL (70-104); POTASSIUM 3.2 mmol/L (3.5-5.1); SODIUM 132 mmol/L (136-145); TCO2 22 mmol/L (25-35)
[2019-11-28] MEDS: NEURONTIN PO SCH ×3 (08:06→20:42)
[2019-11-28] MEDS: ZOFRAN IV PRN (08:06)
[2019-11-28] MEDS: MS CONTIN PO SCH ×2 (08:06→20:42)
[2019-11-28] MEDS: ATIVAN PO SCH ×3 (08:06→20:43)
[2019-11-28] MEDS: FLEXERIL PO SCH ×3 (08:12→20:42)
[2019-11-28] MEDS: PAXIL PO SCH (08:12)
[2019-11-28] MEDS: NON-FORMULARY BULK MED INH SCH (08:14)
[2019-11-28] MEDS ORDERED: MARINOL PO SCH (09:00)
[2019-11-28] MEDS ORDERED: PRILOSEC PO SCH (09:00)
[2019-11-28] MEDS ORDERED: RISPERDAL M-TAB PO ONE (11:26)
--- NOTE | 2019-11-28 11:56 | HEMO/ONC CONSULTATION ---
DATE: 11/26/2019 REQUESTING PHYSICIAN: Consultation requested by hospitalist service. REASON FOR CONSULTATION: Consultation is for small-cell lung cancer, patient known. HISTORY OF PRESENT ILLNESS: Ms. Rebeca Ramirez is a 64-year-old female who is known to us as we are currently treating her for extensive stage small cell lung cancer. She also has a prior history of triple negative breast cancer, but with no active disease at this time. She recently did have progression of her small cell lung cancer on scans. She has been transitioned to Taxol and topotecan with her first dose being on 11/22/2019. Prior to that, she was receiving Tecentriq, carboplatin, and etoposide. The patient presented to the emergency department complaining of shortness of breath, abdominal pain, as well as nausea, vomiting, and diarrhea. She reported just generalized weakness. She is also having fevers and chills. She has now been admitted for further workup and evaluation. They have so far done a CT scan of chest, abdomen, and pelvis which just showed the patient have enteritis, also some mild gallbladder thickening with a component of cholecystitis that cannot be ruled out. We have been consulted to help with the management of the patient while she is here in the hospital. PAST MEDICAL HISTORY: 1. Metastatic small cell lung cancer with recent progression on scans. 2. History of triple negative breast cancer but no active disease currently. 3. History of thyroid nodule. 4. Chronic kidney disease. 5. Anxiety, depression. 6. Nicotine dependence. 7. GERD. 8. COPD. PAST SURGICAL HISTORY: 1. Bilateral mastectomies. 2. Left chest port placement. SOCIAL HISTORY: Patient is a current every day smoker. She denies any illicit drug use. She does have a history of alcohol abuse. FAMILY HISTORY: Positive for cancer. REVIEW OF SYSTEMS: Twelve point review of systems has been completed and is negative except for as expressed in the HPI. PHYSICAL EXAMINATION: Vital Signs: Temperature 98.5 degrees, heart rate 74, respirations 25, blood pressure 141/70, O2 saturation 100% on room air. General: This is a thin, female lying in her hospital bed. She appears to be weak. Head: Normocephalic and atraumatic. Eyes: Pupils do appear to be equal, round, and reactive. Ears, Nose, Throat, Neck, and Mouth: Mucosa appears to be dry. Gross auditory acuity is intact. Cardiovascular: Regular rate. Respiratory: No labored breathing noted at this time. Gastrointestinal: Abdomen is nondistended. Musculoskeletal: She has muscle wasting and she is thin. Neurologic: Patient is alert and oriented. LABS AND STUDIES: White blood cells 6.9, hemoglobin 12.4, platelet count 229,000. Sodium 134, potassium 3.8, chloride 102, CO2 of 20, BUN 16, creatinine 0.7, glucose 113. Total bilirubin is 0.62, AST and ALT are 137 and 44 respectively, and alkaline phosphatase is 324. CT of chest, abdomen, and pelvis as per above. ASSESSMENT AND PLAN: 1. Extensive stage small cell lung cancer with recent progression on scans. Last chemotherapy was Taxol and topotecan on 11/22/2019. Treatment will be on hold while the patient is hospitalized. 2. Possible ileus/possible cholecystitis. General surgery has been consulted. Follow up on their recommendations. 3. Intractable nausea, vomiting, and diarrhea. Continue intravenous antiemetics as well as bowel rest. Management per the primary team. 4. Chronic obstructive pulmonary disease. Patient will continue with oxygen support while here in the hospital. We would like to thank you for consulting us. We will continue to follow along and adjust our treatment plan per hospital course. Dictated by KI Tracey for Miladys Vaughn MD cc: Miladys Vaughn MD I have seen and examined the patient and the above note reflects my history, physical exam, assessment and plan. Miladys BARTON
[2019-11-28] MEDS: POTASSIUM CHLORIDE 20 MEQ/SWI 20 MEQ/100 ML IVPB IV SCH ×2 (12:13→15:17)
[2019-11-28] MEDS ORDERED: HALDOL IV PRN (17:38)
[2019-11-28] MEDS: SEROQUEL PO SCH (20:43)
[2019-11-29] MEDS: ZOSYN 3.375 GM in NS 50 ML IV SCH ×4 (00:30→17:49)
--- NOTE | 2019-11-29 04:07 | PROGRESS NOTE ---
DATE: 11/28/2019 OBJECTIVE: Vital Signs: Blood pressure 128/67, heart rate of 90, respiratory rate of 20, temperature 98 degrees. 100% on room air. Cardiovascular: Regular rate and rhythm. Pulmonary: Bilateral breath sounds clear to auscultation. Gastrointestinal: Abdomen was soft, nontender, nondistended. Bowel sounds are positive. PROBLEM LIST: 1. Today, new problem is encephalopathy, really not sure what is causing this. I do not know if she is reacting to some of her medications. She seems just agitated, somewhat disoriented. I am not sure if this is related to her narcotics. She is on her regular medications which we resumed yesterday but will see how she does. I cannot tell there is anything severe going on. She has not had any electrolyte abnormalities or anything. That being said, since she is a metastatic cancer patient, we will go ahead and do some neuroimaging just to kind of see if there is something going on there. I do not think she has had a history of any other metastases. 2. Her blood and flu, urine cultures, all that is negative. She has had a sputum culture that is pending. She is on antibiotics I believe Zosyn until we can confirm that she does not have an pneumonia per se. 3. Metastatic small cell lung cancer with worsening metastatic disease. She is still getting chemotherapy. Continue to follow closely. Hematology/Oncology is following as well. cc: Kev Chapman MD
[2019-11-29] MEDS: NS 1,000 ML IV SCH ×3 (04:44→19:59)
[2019-11-29] MEDS: PROTONIX IV SCH (04:44)
[2019-11-29] MEDS: PHENERGAN IV PRN ×3 (06:58→21:02)
[2019-11-29 07:10] LABS: BASO# 0.01 X1000 (0.0-0.2); BASO% 0.3 % (0.0-0.8); EOS% 2.9 % (0.0-10.0); HEMATOCRIT 26.7 % (37.0-47.0); LYMPH# 0.49 X1000 (1.2-3.4); LYMPH% 14.4 % (20.5-51.1); MCH 32.8 PG (27-31); MCHC 33.7 g/dL (33-37); MCV 97.4 FL (81-99); MONO# 0.18 X1000 (0.11-0.59); MONO% 5.3 % (1.7-9.3); MPV 9.6 FL (7.4-10.4); NEUT# 2.63 X1000 (1.4-6.5); NEUT% 77.1 % (42.2-75.2); PLT 95 X1000 (130-400); RBC 2.74 XMIL (4.2-5.4); RDW 16.3 % (11.5-14.5); WBC 3.41 X1000 (4.8-10.8)
[2019-11-29 07:39] LABS: AGAP 8; ALB/GLOB RATIO 1.6; ALBUMIN 2.9 g/dL (3.5-5.0); ALKALINE PHOSPHATASE 162 U/L (32-104); BUN 4 mg/dL (8-22); CALCIUM 7.8 mg/dL (8.8-10.2); CHLORIDE 92 mmol/L (98-107); COSMO 242; CREATININE 0.5 mg/dL (0.5-0.9); ESTIMATED GFR > 60; GLUCOSE 80 mg/dL (70-104); GOT 43 U/L (10-30); GPT 19 U/L (10-36); POTASSIUM 3.5 mmol/L (3.5-5.1); SODIUM 122 mmol/L (136-145); TCO2 22 mmol/L (25-35); TOTAL BILIRUBIN 0.24 mg/dL (0.20-1.00); TOTAL PROTEIN 4.7 g/dL (6.3-8.3)
[2019-11-29] MEDS: ZOFRAN IV PRN ×2 (09:08→15:24)
[2019-11-29] MEDS: ATIVAN PO SCH ×3 (09:09→20:49)
[2019-11-29] MEDS: PAXIL PO SCH (09:09)
[2019-11-29] MEDS: NEURONTIN PO SCH ×3 (09:10→20:49)
[2019-11-29] MEDS: FLEXERIL PO SCH ×3 (09:10→20:49)
[2019-11-29] MEDS: MS CONTIN PO SCH ×2 (09:16→20:49)
[2019-11-29] MEDS ORDERED: SAMSCA PO ONE (09:21)
[2019-11-29] MEDS: DILAUDID IV PRN ×3 (11:16→21:02)
--- NOTE | 2019-11-29 12:40 | HEMO/ONC PROGRESS NOTE ---
DATE: 11/29/2019 CHIEF COMPLAINT: "Can I get my chemo in the hospital?" HISTORY OF PRESENT ILLNESS: Ms. Ramirez is followed up in the hospital for her admission with nausea, vomiting, and pancytopenia. She currently denies any fevers or chills. She is a bit agitated and continues to have abdominal pain, back pain, and nausea. REVIEW OF SYSTEMS: Complete review of systems negative except as per HPI. PHYSICAL EXAMINATION: Vital Signs: Temperature 98.1 degrees, pulse 94, respiratory rate 19, blood pressure 122/63, O2 saturation 100% on room air. General: A thin, chronically ill- appearing woman in no acute distress. Her nurse is in the room at the time of consultation. Eyes: Sclerae anicteric. Conjunctiva pale. Cardiovascular: Regular rate and rhythm. Normal S1, S2. No murmurs, rubs, or gallops. Pulmonary: Coarse bilateral breath sounds. No wheezes, rales, or rhonchi. Neuro: Patient is alert and oriented x2. Rest of examination is unremarkable. LABORATORY DATA: White count 3.41, hemoglobin 9.2, platelet count 95,000. Sodium down to 122 today, potassium 3.5, creatinine 0.5, calcium 7.8, AST 43, alkaline phosphatase 162, total protein 4.7, albumin 2.9. Procalcitonin elevated at 0.79. IMAGING: Brain MRI pending. ASSESSMENT AND PLAN: 1. Altered mental status, new: Brain MRI by my review shows no obvious evidence of acute disease. I will await official report. I suspect this is medication related or metabolic. Continue supportive care. Continue to monitor. 2. Fevers: She is empirically being treated for pneumonia. Cultures have been negative. Continue to monitor. 3. Metastatic small cell lung cancer, recurrent and refractory: She is currently on palliative chemotherapy with her first dose of Taxol/topotecan on 11/22/2019. She is due for her next dose today, but I will defer that given her altered mental status. Continue supportive care. Reassess on Monday. 4. Hyponatremia: Recurrent problem. She will continue on Samsca at the 15 mg daily dose. Continue to monitor. 5. Pain: Continue current pain medications. Reassess as hospital course progresses. cc: MD Kev Rodriguez MD
--- NOTE | 2019-11-29 12:49 | Diag Imaging Result Doc PS360 ---
EXAM: MRI BRAIN W/WO CONTRAST INDICATION: ams/metastatic lung cancer COMPARISON: 08/08/2019 FINDINGS: There are numerous tiny foci of enhancement seen in both cerebral hemispheres including the deep go matter as well as the cerebellum consistent with metastatic disease. Note that all of these lesions are subcentimeter in size. For reference, one of the larger lesions is in the left cerebellar hemisphere and measures 4.4 mm in the greatest axial dimension on image 66 of series 14. There is a lesion in the thalamus on the right that measures up to 4.3 cm axially on image 128 of series 14. There is a 4.3 cm enhancing lesion bordering the caudate head on the left on image 134 of series 14. There are several enhancing lesions associated with the right caudate head. A few of these lesions are causing increased signal on diffusion. There is no evidence of acute infarct, however. There is mild T2/FLAIR hyperintensity associated with a few of these lesions suggesting minimal/early vasogenic edema. There is no evidence of significant mass effect. There is no evidence of intracranial hemorrhage. There is no hydrocephalus. The surrounding soft tissues and bony structures are essentially unremarkable. IMPRESSION: Numerous tiny subcentimeter metastatic lesions seen throughout the brain as described above. Electronically signed by Gordo Wilson 11/29/2019 12:46 PM
[2019-11-29] MEDS: NICODERM PATCH TD PRN (14:05)
[2019-11-29] MEDS ORDERED: DECADRON PO ONE (17:06)
--- NOTE | 2019-11-29 17:25 | PROGRESS NOTE ---
DATE: 11/29/2019 SUBJECTIVE: The patient has no major complaints. OBJECTIVE: vital signs: Blood pressure is 88/66, heart rate 95, respiratory rate 19, temperature 98.1 degrees. Cardiovascular: Regular rate and rhythm. Pulmonary: Bilateral breath sounds. Clear to auscultation. Gastrointestinal: Soft and nondistended. Bowel sounds were positive. LABORATORY DATA: White count 3.4, hemoglobin and hematocrit 9 and 26, platelets of 95,000. This has been a precipitous drop in her platelets since she has been here. PROBLEM LIST: 1. Encephalopathy. Her MRI is positive though. She has numerous metastatic lesions. I do not know if this is a new diagnosis. They are not large. I guess there is not a lot of swelling, but we may want to go ahead and put her on some steroids. She is hyponatremic as well. We may need to get a Radiation Oncology consult. I do not know if that is a feasibility there. These are not really big lesions, but we are going to continue to follow closely. 2. Hyponatremia which is likely related to syndrome of inappropriate antidiuretic hormone. We have ordered some Samsca, and we will continue to monitor her kidney function. Her mental status is much improved today. 3. Metastatic cancer small cell with worsening metastatic burden. We will continue to monitor closely. DISPOSITION: Pending clinical status. We will continue to follow. cc: Kev Chapman MD
[2019-11-29 18:10] LABS: AGAP 8; BUN 4 mg/dL (8-22); CALCIUM 9.1 mg/dL (8.8-10.2); CHLORIDE 108 mmol/L (98-107); COSMO 280; CREATININE 0.7 mg/dL (0.5-0.9); ESTIMATED GFR > 60; GLUCOSE 71 mg/dL (70-104); SODIUM 143 mmol/L (136-145); TCO2 27 mmol/L (25-35)
[2019-11-29] MEDS: SEROQUEL PO SCH (20:49)
[2019-11-29] MEDS: DECADRON PO SCH (20:49)
[2019-11-30] MEDS: ZOSYN 3.375 GM in NS 50 ML IV SCH ×5 (00:58→22:52)
[2019-11-30] MEDS: DILAUDID IV PRN ×4 (01:04→15:17)
[2019-11-30] MEDS: SODIUM CHLORIDE 0.9% INJ SCH (05:37)
[2019-11-30] MEDS: PROTONIX IV SCH (05:37)
[2019-11-30] MEDS: PHENERGAN IV PRN ×3 (05:49→18:31)
[2019-11-30] MEDS: SODIUM CHLORIDE 0.9% INJ PRN (05:49)
[2019-11-30 06:54] LABS: HEMATOCRIT 28.4 % (37.0-47.0); HEMOGLOBIN 9.4 g/dL (12.0-16.0); LYMPH% 12.3 % (20.5-51.1); MCHC 33.1 g/dL (33-37); MCV 99.6 FL (81-99); MONO# 0.09 X1000 (0.11-0.59); MONO% 5.5 % (1.7-9.3); MPV 9.6 FL (7.4-10.4); NEUT# 1.34 X1000 (1.4-6.5); NEUT% 82.2 % (42.2-75.2); PLT 82 X1000 (130-400); RBC 2.85 XMIL (4.2-5.4); RDW 16.4 % (11.5-14.5); WBC 1.63 X1000 (4.8-10.8)
[2019-11-30 07:39] LABS: AGAP 12; BUN 7 mg/dL (8-22); CALCIUM 8.4 mg/dL (8.8-10.2); CHLORIDE 102 mmol/L (98-107); COSMO 275; CREATININE 0.8 mg/dL (0.5-0.9); ESTIMATED GFR > 60; GLUCOSE 231 mg/dL (70-104); POTASSIUM 3.7 mmol/L (3.5-5.1); SODIUM 135 mmol/L (136-145); TCO2 21 mmol/L (25-35)
[2019-11-30] MEDS: DECADRON PO SCH ×2 (08:19→22:54)
[2019-11-30] MEDS: PAXIL PO SCH (08:19)
[2019-11-30] MEDS: MS CONTIN PO SCH ×2 (08:25→23:11)
[2019-11-30] MEDS: FLEXERIL PO SCH ×3 (08:26→22:54)
[2019-11-30] MEDS: NEURONTIN PO SCH ×3 (08:26→22:53)
[2019-11-30] MEDS: ATIVAN PO SCH ×3 (08:26→22:54)
[2019-11-30] MEDS: ZOFRAN IV PRN ×2 (08:40→15:17)
--- NOTE | 2019-11-30 10:27 | CONSULTATION ---
DATE OF CONSULTATION: 11/30/2019 REASON FOR CONSULTATION: Small cell lung cancer with brain metastasis. HISTORY OF PRESENT ILLNESS: Ms. Ramirez is a 64-year-old female under the treatment of Dr. Vaughn for metastatic small cell carcinoma. She presented to [facility] with shortness of breath, abdominal pain, nausea, vomiting and diarrhea. She had confusion as well. She was evaluated in the ER on 11/26/2019 and was admitted due to intractable nausea, vomiting and diarrhea. She had an MRI done on 11/28/2019 and it shows numerous tiny subcentimeter metastatic lesions seen throughout the brain. I have been consulted today for consideration of whole brain radiation therapy. REVIEW OF SYSTEMS: The patient is able to remember that she had been to my office with a friend in the past. She remembers that it was many years ago when we were getting a new machine and they had to drive to [place] in order to see me. She remembers her friend's name is Honey, but she cannot remember her friend's last name. She continues to talk as if she is confused, but still has some knowledge of what's going on. PHYSICAL EXAM: General: She is lying in no acute distress in her hospital bed. Vitals: Blood pressure 88/66, heart rate 95, respirations 19, temperature 98.1 degrees. Cardiovascular: Regular rate. Pulmonary: The patient is breathing normally and in no distress. Neurologic Exam: Grossly nonfocal, other than her confusion. ASSESSMENT AND PLAN: In summary, Ms. Ramirez has a new diagnosis of diffuse tiny brain metastasis from small cell lung cancer. We certainly can treat with whole brain radiation therapy if her performance status remains okay. I am off this coming week, but Dr. Josh Rivera will be covering for me in [place]. I will have him check on the patient first thing on Monday, and arrange for her to be stimulated to start radiation therapy. Also, go ahead and contact Dr. Vaughn with the plan, and she can discuss things with Dr. Rivera on Monday as well. cc: Shweta Rene MD
[2019-11-30] MEDS ORDERED: ZOFRAN ODT PO PRN (17:22)
[2019-11-30] MEDS: SEROQUEL PO SCH (22:53)
[2019-12-01] MEDS: ZOSYN 3.375 GM in NS 50 ML IV SCH ×4 (02:02→20:43)
[2019-12-01] MEDS: ZOFRAN IV PRN ×2 (03:53→13:22)
[2019-12-01] MEDS: DILAUDID IV PRN ×6 (03:53→20:45)
[2019-12-01] MEDS: PROTONIX IV SCH (05:57)
[2019-12-01] MEDS: SODIUM CHLORIDE 0.9% INJ SCH (05:57)
[2019-12-01] MEDS: ATIVAN PO SCH ×3 (09:27→20:45)
[2019-12-01] MEDS: MS CONTIN PO SCH ×2 (09:27→20:44)
[2019-12-01] MEDS: NEURONTIN PO SCH ×3 (09:27→20:44)
[2019-12-01] MEDS: SAMSCA PO SCH (09:27)
[2019-12-01] MEDS: MAG-OX PO SCH (09:28)
[2019-12-01] MEDS: PAXIL PO SCH (09:28)
[2019-12-01] MEDS: FLEXERIL PO SCH ×3 (09:28→20:44)
[2019-12-01] MEDS: DECADRON PO SCH ×2 (09:28→20:45)
[2019-12-01] MEDS: PHENERGAN IV PRN ×3 (09:29→20:45)
[2019-12-01] MEDS: SODIUM CHLORIDE 0.9% INJ PRN ×3 (09:30→20:44)
[2019-12-01] MEDS: OFIRMEV 1000 MG/ISOTONIC SOLN 1,000 MG/100 ML BOTTLE IV PRN (16:01)
--- NOTE | 2019-12-01 19:07 | PROGRESS NOTE ---
DATE: 12/01/2019 SUBJECTIVE: She says she does not feel well but that is kind of a standard complaint for her. I did increase her Dilaudid last time. OBJECTIVE DATA: Blood pressure is 138/71, heart rate of 81, respiratory rate of 19, temperature 97.3 degrees, 100% on room air. Cardiovascular: Regular rate and rhythm. Pulmonary: Bilateral breath sounds clear to auscultation. GI: Soft, nontender, nondistended. Bowel sounds were positive. No new lab data today. PROBLEM LIST: 1. Metastatic small cell lung cancer. She has diffuse bony metastasis which have progressed in the liver, spine, and now she has central nervous system metastasis. We will continue towards pain control. I think at this point, palliative chemotherapy is the only option. 2. Encephalopathy but with several small brain metastases. Radiation is planning treatment when and if she stabilizes. 3. Hyponatremia, likely syndrome of inappropriate antidiuretic hormone secretion. She is responding well to the Samsca. We will continue that for the time-being. 4. History of Covid exposure. She did have some low-grade fevers, though she has been currently ruled out, although again, I think it is very unlikely that is what is going on. We will continue to follow closely. cc: Kev Chapman MD
[2019-12-01] MEDS: SEROQUEL PO SCH (20:45)
[2019-12-01] MEDS: NICODERM PATCH TD PRN (20:56)
[2019-12-02] MEDS: ZOSYN 3.375 GM in NS 50 ML IV SCH ×4 (01:26→20:46)
[2019-12-02] MEDS: DILAUDID IV PRN ×7 (01:26→20:58)
[2019-12-02] MEDS: SODIUM CHLORIDE 0.9% INJ SCH (05:31)
[2019-12-02] MEDS: SODIUM CHLORIDE 0.9% INJ PRN ×3 (05:31→15:47)
[2019-12-02] MEDS: PROTONIX IV SCH (05:31)
[2019-12-02] MEDS: PHENERGAN IV PRN ×3 (05:32→15:47)
[2019-12-02 07:03] LABS: BASO# 0.01 X1000 (0.0-0.2); BASO% 0.2 % (0.0-0.8); HEMATOCRIT 30.4 % (37.0-47.0); LYMPH# 0.57 X1000 (1.2-3.4); MCHC 32.9 g/dL (33-37); MCV 100.3 FL (81-99); MONO# 0.41 X1000 (0.11-0.59); MONO% 8.6 % (1.7-9.3); MPV 10.2 FL (7.4-10.4); NEUT# 3.75 X1000 (1.4-6.5); NEUT% 79.2 % (42.2-75.2); PLT 92 X1000 (130-400); RBC 3.03 XMIL (4.2-5.4); RDW 16.9 % (11.5-14.5); WBC 4.74 X1000 (4.8-10.8)
[2019-12-02 07:08] LABS: AGAP 11; ALB/GLOB RATIO 1.6; ALBUMIN 3.6 g/dL (3.5-5.0); ALKALINE PHOSPHATASE 165 U/L (32-104); BUN 10 mg/dL (8-22); CALCIUM 8.7 mg/dL (8.8-10.2); CHLORIDE 103 mmol/L (98-107); COSMO 274; CREATININE 0.9 mg/dL (0.5-0.9); ESTIMATED GFR > 60; GLUCOSE 148 mg/dL (70-104); GOT 24 U/L (10-30); GPT 18 U/L (10-36); SODIUM 136 mmol/L (136-145); TCO2 22 mmol/L (25-35); TOTAL BILIRUBIN 0.18 mg/dL (0.20-1.00); TOTAL PROTEIN 5.9 g/dL (6.3-8.3)
[2019-12-02] MEDS: MAG-OX PO SCH (09:20)
[2019-12-02] MEDS: NEURONTIN PO SCH ×3 (09:20→20:47)
[2019-12-02] MEDS: MS CONTIN PO SCH ×2 (09:21→20:46)
[2019-12-02] MEDS: PAXIL PO SCH (09:21)
[2019-12-02] MEDS: DECADRON PO SCH ×2 (09:21→20:47)
[2019-12-02] MEDS: FLEXERIL PO SCH ×3 (09:21→20:47)
[2019-12-02] MEDS: ATIVAN PO SCH ×3 (09:21→20:46)
[2019-12-02] MEDS: SAMSCA PO SCH (09:21)
[2019-12-02] MEDS: NICODERM PATCH TD PRN (15:48)
[2019-12-02] MEDS: SEROQUEL PO SCH (20:46)
[2019-12-02] MEDS: COUMADIN PO SCH (20:47)
[2019-12-03] MEDS: ZOSYN 3.375 GM in NS 50 ML IV SCH ×4 (01:31→23:13)
[2019-12-03] MEDS: DILAUDID IV PRN ×3 (01:33→10:44)
[2019-12-03] MEDS: ROBITUSSIN-AC PO PRN (01:34)
--- NOTE | 2019-12-03 01:48 | PROGRESS NOTE ---
DATE: 12/02/2019 SUBJECTIVE: Patient complaining of pain, anxiety. OBJECTIVE: Vital signs: Blood pressure is 97.5 with no fevers since 11/01/2019, heart rate 86, respiratory rate 20, blood pressure 138/81. Cardiovascular: Regular rate and rhythm. Pulmonary: Bilateral breath sounds, clear to auscultation. GI: Soft, nontender, nondistended. Bowel sounds positive. ASSESSMENT: 1. Metastatic small-cell lung cancer. We will continue treatment. Hematology/Oncology is following. 2. Encephalopathy. Overall, seems to be improved. 3. Hyponatremia with possible syndrome of inappropriate antidiuretic hormone. Renal is following. We are not checking further sodium levels. 4. Possible Coronavirus Disease exposure. We will wait on final data and follow. DISPOSITION: Anticipate discharge soon, possibly in the next 1 to 2 days. cc: Kev Chapman MD
[2019-12-03] MEDS: TORADOL IV PRN ×2 (04:56→15:13)
[2019-12-03] MEDS: PROTONIX IV SCH (05:22)
[2019-12-03] MEDS: PHENERGAN IV PRN ×3 (06:11→15:13)
[2019-12-03] MEDS: NON-FORMULARY BULK MED INH SCH (07:38)
[2019-12-03] MEDS: ATIVAN PO SCH ×3 (10:45→23:14)
[2019-12-03] MEDS: SAMSCA PO SCH (10:45)
[2019-12-03] MEDS: NEURONTIN PO SCH ×3 (10:45→23:14)
[2019-12-03] MEDS: FLEXERIL PO SCH ×3 (10:45→23:13)
[2019-12-03] MEDS: DECADRON PO SCH ×2 (10:45→23:14)
[2019-12-03] MEDS: PAXIL PO SCH (10:45)
[2019-12-03] MEDS: MAG-OX PO SCH (10:45)
[2019-12-03] MEDS: MS CONTIN PO SCH ×2 (10:46→23:14)
[2019-12-03] MEDS: SODIUM CHLORIDE 0.9% INJ PRN ×2 (10:53→15:13)
[2019-12-03] MEDS: NICODERM PATCH TD PRN (15:14)
--- NOTE | 2019-12-03 20:00 | PROGRESS NOTE ---
DATE: 12/03/2019 SUBJECTIVE: Patient has no major complaints. OBJECTIVE: Blood pressure 148/92, heart rate 103, respiratory rate 24, temperature 98.1 degrees, 100% on room air.Cardiovascular: Regular rate and rhythm. Pulmonary: Bilateral breath sounds clear. White count 4, hemoglobin 10 and hematocrit 30, platelets 92,000. Basic is normal. IMPRESSION AND PLAN: 1. 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 We will continue pain control. Obviously, prognosis is poor. 2. Encephalopathy. I think she is kind of close to her baseline. 3. 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 4. Possible Coronavirus Disease 2019 exposure. We are awaiting her COVID testing and then I think she probably should be able to go home. cc: Kev Chapman MD MTD
[2019-12-03] MEDS: SEROQUEL PO SCH (23:14)
[2019-12-03] MEDS: COUMADIN PO SCH (23:14)
[2019-12-04] MEDS: PROTONIX IV SCH ×2 (04:53→06:22)
[2019-12-04] MEDS: ZOSYN 3.375 GM in NS 50 ML IV SCH (04:53)
[2019-12-04] MEDS: DILAUDID IV PRN ×4 (04:54→22:19)
[2019-12-04] MEDS: PHENERGAN IV PRN ×4 (05:09→22:19)
[2019-12-04 05:25] LABS: BASO# 0.02 X1000 (0.0-0.2); BASO% 0.5 % (0.0-0.8); HEMATOCRIT 32.6 % (37.0-47.0); HEMOGLOBIN 10.5 g/dL (12.0-16.0); LYMPH# 0.64 X1000 (1.2-3.4); LYMPH% 16.2 % (20.5-51.1); MCH 32.2 PG (27-31); MCHC 32.2 g/dL (33-37); MONO# 0.48 X1000 (0.11-0.59); MONO% 12.2 % (1.7-9.3); MPV 10.4 FL (7.4-10.4); NEUT% 71.1 % (42.2-75.2); PLT 111 X1000 (130-400); RBC 3.26 XMIL (4.2-5.4); RDW 16.6 % (11.5-14.5); WBC 3.94 X1000 (4.8-10.8)
[2019-12-04 06:00] LABS: AGAP 11; BUN 15 mg/dL (8-22); CALCIUM 8.7 mg/dL (8.8-10.2); CHLORIDE 104 mmol/L (98-107); COSMO 283; CREATININE 0.8 mg/dL (0.5-0.9); ESTIMATED GFR > 60; GLUCOSE 114 mg/dL (70-104); POTASSIUM 4.3 mmol/L (3.5-5.1); SODIUM 141 mmol/L (136-145); TCO2 26 mmol/L (25-35)
[2019-12-04] MEDS: NON-FORMULARY BULK MED INH SCH (07:57)
[2019-12-04] MEDS: ZOFRAN IV PRN (08:48)
[2019-12-04] MEDS: PAXIL PO SCH (08:49)
[2019-12-04] MEDS: NEURONTIN PO SCH ×3 (08:49→22:11)
[2019-12-04] MEDS: ATIVAN PO SCH ×3 (08:49→22:10)
[2019-12-04] MEDS: DECADRON PO SCH ×2 (08:49→22:10)
[2019-12-04] MEDS: SAMSCA PO SCH (08:49)
[2019-12-04] MEDS: FLEXERIL PO SCH ×3 (08:49→22:10)
[2019-12-04] MEDS: MAG-OX PO SCH (08:49)
[2019-12-04] MEDS: MS CONTIN PO SCH ×2 (08:50→22:10)
[2019-12-04] MEDS: SODIUM CHLORIDE 0.9% INJ PRN ×2 (08:57→22:19)
--- NOTE | 2019-12-04 14:07 | PROGRESS NOTE ---
DATE: 12/04/2019 INTERVAL HISTORY: The patient is still complaining of issues with pain. Doing okay currently, but taking a fair amount of IV Dilaudid. No other new complaints. No acute events overnight. REVIEW OF SYSTEMS: 12-point review of systems negative except as per interval history. LABS: WBC 3.9, hemoglobin 10.5, hematocrit 32.6, platelets 111,000. Sodium 141, potassium 4.3, BUN 15, creatinine 0.8, glucose 114. VITALS: T-max 98.1 degrees, pulse 74, respirations 18, blood pressure 115/69, O2 saturation 96% on room air. PHYSICAL EXAMINATION: General: No acute distress. Chronically ill-appearing, cachectic. Vitals: As above. HEENT: Normocephalic, atraumatic. Cardiovascular: Regular rate and rhythm. No murmurs noted. Pulmonary: Clear to auscultation bilaterally. No wheezing, rales, or rhonchi. Abdomen: Soft, nontender, nondistended. Bowel sounds positive. Extremities: Peripheral pulses intact. No clubbing or cyanosis. Neurologic: Cranial nerves grossly intact. No focal deficits identified. Psychiatric: Normal mood and affect. Slightly pressured speech, but appropriate. Oriented x3. ASSESSMENT AND PLAN: 1. 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 On therapy with oncology, Dr. Vaughn. Getting brain radiation. 2. Metabolic encephalopathy, essentially resolved at this point. 3. Hyponatremia, SIADH. Has done well with Samsca. Sodium is actually trending up toward the upper end of normal, so we will put Samsca on hold for now. 4. Upper respiratory illness. No sign of lower respiratory infection has been found so we will discontinue antibiotics at this time. Coronavirus Disease 19 testing pending. 5. Disposition. Adjusting pain medications to try to get better control of her pain with p.o. options. If we can accomplish that, then we will hopefully be able to discharge tomorrow.
[2019-12-04] MEDS: COUMADIN PO SCH (22:10)
[2019-12-04] MEDS: SEROQUEL PO SCH (22:10)
[2019-12-05] MEDS: NORCO-10 PO PRN ×3 (00:48→13:01)
[2019-12-05] MEDS: DILAUDID IV PRN ×3 (02:44→20:54)
[2019-12-05] MEDS: SODIUM CHLORIDE 0.9% INJ SCH (05:13)
[2019-12-05] MEDS: PROTONIX IV SCH (05:13)
[2019-12-05] MEDS ORDERED: IMODIUM PO ONE (06:42)
[2019-12-05] MEDS: PHENERGAN IV PRN ×4 (06:50→21:03)
[2019-12-05] MEDS: SODIUM CHLORIDE 0.9% INJ PRN ×2 (06:54→21:03)
[2019-12-05] MEDS ORDERED: DILAUDID IV PRN (07:45)
[2019-12-05] MEDS: NEURONTIN PO SCH ×3 (08:02→20:53)
[2019-12-05] MEDS: MAG-OX PO SCH (08:03)
[2019-12-05] MEDS: DECADRON PO SCH ×2 (08:04→20:53)
[2019-12-05] MEDS: ATIVAN PO SCH ×3 (08:04→20:53)
[2019-12-05] MEDS: FLEXERIL PO SCH ×3 (08:04→20:54)
[2019-12-05] MEDS: ROBITUSSIN-AC PO PRN (08:05)
[2019-12-05] MEDS: MS CONTIN PO SCH ×2 (08:05→20:53)
[2019-12-05] MEDS: PAXIL PO SCH (08:06)
[2019-12-05] MEDS: NON-FORMULARY BULK MED INH SCH (08:19)
[2019-12-05] MEDS ORDERED: MS CONTIN PO ONE (10:00)
[2019-12-05 10:34] LABS: BASO# 0.01 X1000 (0.0-0.2); BASO% 0.1 % (0.0-0.8); EOS# 0.01 X1000 (0.0-0.7); EOS% 0.1 % (0.0-10.0); HEMATOCRIT 31.5 % (37.0-47.0); HEMOGLOBIN 10.4 g/dL (12.0-16.0); IMM GRAN# 0.03 X1000 (0.0-0.04); IMM GRAN% 0.4 % (0.0-0.5); LYMPH# 0.81 X1000 (1.2-3.4); LYMPH% 10.4 % (20.5-51.1); MCH 32.7 PG (27-31); MCV 99.1 FL (81-99); MONO# 0.76 X1000 (0.11-0.59); MONO% 9.8 % (1.7-9.3); MPV 10.1 FL (7.4-10.4); NEUT# 6.15 X1000 (1.4-6.5); NEUT% 79.2 % (42.2-75.2); PLT 123 X1000 (130-400); RBC 3.18 XMIL (4.2-5.4); RDW 16.3 % (11.5-14.5); WBC 7.77 X1000 (4.8-10.8)
--- NOTE | 2019-12-05 13:07 | PROGRESS NOTE ---
DATE: 12/05/2019 INTERVAL HISTORY: The patient with some recurrence of her nausea, a little bit of vomiting this morning. She is complaining of some possible dark bowel movements and ongoing issues with pain control. Afebrile. No abdominal pain. Buster pains in her mid to upper back. No other acute events. REVIEW OF SYSTEMS: Twelve point review of systems negative as per interval history. LABS: WBC 7.7, hemoglobin 10.4, hematocrit 31.5, platelets 123. INR pending. VITALS: T-max 98.4 degrees, pulse 92, respirations 16, blood pressure 142/73, O2 saturation 100% on room air. PHYSICAL EXAMINATION: General: No acute distress. Chronically ill-appearing, cachectic. Vitals: As above. HEENT: Normocephalic, atraumatic. Cardiovascular: Regular rate and rhythm. No murmurs noted. Pulmonary: Clear to auscultation bilaterally. No wheezing, rales or rhonchi. Abdomen: Soft, nontender, nondistended. Bowel sounds positive. Extremities: Peripheral pulses intact. No clubbing or cyanosis. Neurologic: Cranial nerves grossly intact. No focal deficits identified. Psychiatric: Normal mood and affect. Speech less pressured and remains appropriate. Oriented x3. ASSESSMENT AND PLAN: 1. Small cell carcinoma with metastases to brain and bone. On therapy with Oncology, Dr. Vaughn. Has been getting brain radiation last few days. She is debating whether she wants to do further chemotherapy after discharge. 2. Metabolic encephalopathy, essentially resolved. 3. Hyponatremia, syndrome of inappropriate antidiuretic hormone. The patient was on Samsca and did well, but sodium was beginning to trend up. Monitoring off of Samsca currently. 4. Upper respiratory illness. No sign of lower respiratory infection was found and COVID-19 testing was negative. So, the patient is being monitored off of antibiotics. No longer on isolation. 5. Pain control. The patient is still requiring a fair amount of intravenous Dilaudid. Had issues with nausea, vomiting earlier this morning, although they are essentially resolved now. We will go up on her MS Contin some and see how that does. If she continues to have uncontrolled pain or if the nausea and vomiting becomes more of an issue, she may need transitioned to fentanyl patch. 6. Dark stools, possible melena. The patient reporting dark stools this morning. No irma blood. No history of gastrointestinal bleeding. Blood counts this morning unchanged from previous. We will recheck blood counts this afternoon. We will put warfarin on hold for now. If blood counts trended down, then may need Gastroenterology evaluation. DISPOSITION: If the patient's nausea and pain can be well controlled and she does not have any bleeding, then we will hopefully be able to discharge in the next 24 to 48 hours. One or more of those issues may need further treatment, though. addendum: chemistry now resulted and sodium is trending down significantly with discontinuation of samsca. restarting samsca. MTDD
[2019-12-05 14:01] LABS: HEMATOCRIT 31.4 % (37.0-47.0); HEMOGLOBIN 10.3 g/dL (12.0-16.0)
[2019-12-05 14:12] LABS: INR 0.94; PROTIME 12.6 Seconds (11.0-16.0)
[2019-12-05 14:40] LABS: AGAP 7; BUN 15 mg/dL (8-22); CALCIUM 8.1 mg/dL (8.8-10.2); CHLORIDE 90 mmol/L (98-107); COSMO 253; CREATININE 0.8 mg/dL (0.5-0.9); ESTIMATED GFR > 60; GLUCOSE 180 mg/dL (70-104); SODIUM 123 mmol/L (136-145); TCO2 26 mmol/L (25-35)
[2019-12-05] MEDS: ZOFRAN IV PRN (14:52)
[2019-12-05] MEDS: NS 1,000 ML IV SCH (14:58)
[2019-12-05] MEDS: OXY IR PO PRN (16:12)
[2019-12-05] MEDS: SAMSCA PO SCH (16:20)
[2019-12-05] MEDS: SEROQUEL PO SCH (20:54)
[2019-12-05] MEDS: IMODIUM PO PRN (20:54)
[2019-12-06] MEDS: IMODIUM PO PRN ×3 (04:26→20:21)
[2019-12-06] MEDS: OXY IR PO PRN ×3 (04:26→13:55)
[2019-12-06] MEDS: PROTONIX PO SCH (05:20)
[2019-12-06 06:19] LABS: HEMATOCRIT 33.1 % (37.0-47.0); HEMOGLOBIN 10.6 g/dL (12.0-16.0); LYMPH# 0.54 X1000 (1.2-3.4); LYMPH% 10.7 % (20.5-51.1); MCH 31.8 PG (27-31); MCV 99.4 FL (81-99); MONO# 0.75 X1000 (0.11-0.59); MONO% 14.9 % (1.7-9.3); MPV 9.9 FL (7.4-10.4); NEUT# 3.75 X1000 (1.4-6.5); NEUT% 74.4 % (42.2-75.2); PLT 136 X1000 (130-400); RBC 3.33 XMIL (4.2-5.4); RDW 16.4 % (11.5-14.5); WBC 5.04 X1000 (4.8-10.8)
[2019-12-06 06:28] LABS: INR 1.01; PROTIME 13.4 Seconds (11.0-16.0)
[2019-12-06] MEDS: PHENERGAN IV PRN ×3 (06:41→17:44)
[2019-12-06] MEDS: SODIUM CHLORIDE 0.9% INJ PRN ×3 (06:41→17:43)
[2019-12-06 07:00] LABS: AGAP 7; BUN 10 mg/dL (8-22); CALCIUM 8.9 mg/dL (8.8-10.2); CHLORIDE 103 mmol/L (98-107); COSMO 272; CREATININE 0.7 mg/dL (0.5-0.9); ESTIMATED GFR > 60; GLUCOSE 117 mg/dL (70-104); POTASSIUM 4.7 mmol/L (3.5-5.1); SODIUM 136 mmol/L (136-145); TCO2 26 mmol/L (25-35)
[2019-12-06] MEDS: NON-FORMULARY BULK MED INH SCH (09:00)
[2019-12-06] MEDS: PAXIL PO SCH (09:25)
[2019-12-06] MEDS: MS CONTIN PO SCH ×2 (09:25→20:21)
[2019-12-06] MEDS: MAG-OX PO SCH (09:26)
[2019-12-06] MEDS: DECADRON PO SCH ×2 (09:27→20:25)
[2019-12-06] MEDS: ATIVAN PO SCH ×3 (09:27→20:22)
[2019-12-06] MEDS: FLEXERIL PO SCH ×3 (09:27→20:22)
[2019-12-06] MEDS: NEURONTIN PO SCH ×3 (09:27→20:22)
[2019-12-06] MEDS: SAMSCA PO SCH (09:28)
[2019-12-06] MEDS: ZOFRAN IV PRN (09:28)
[2019-12-06] MEDS: DILAUDID IV PRN ×2 (11:01→16:10)
--- NOTE | 2019-12-06 13:50 | PROGRESS NOTE ---
DATE: 12/06/2019 SUBJECTIVE: The patient is resting in bed but she is complaining of severe pain mostly on her back, her dose off morphine ER has been increased, also she is getting now Dilaudid and Oxy-IR, I will continue with same management for now since this has just been increased yesterday in the afternoon. The patient has been requested to talk again with Hematology/Oncology Department about her condition. She would like to know if she needs to continue with chemotherapy. She received already radiotherapy recently. PHYSICAL EXAMINATION: Vital signs: Temperature 97.6 degrees, pulse 105, respiratory rate 20, blood pressure 108/66, oxygen saturation 98% on room air. HEENT: Head normocephalic, no trauma. PERRLA. Neck: Supple. No JVD. No masses. Central trachea. Chest: Clear to auscultation. Abdomen: Soft, some tenderness to palpation at the level of the epigastric area. Extremities: No edema, no clubbing, no cyanosis. Neurological Examination: The patient is awake, alert. She is oriented. No focal deficits. LABORATORY: WBC 5, hemoglobin 10.6, hematocrit 33.1, platelets 136,000. Sodium 136, potassium 4.7, chloride 103, bicarbonate 26, BUN 10, creatinine 0.7, glucose 117, calcium 8.9. ASSESSMENT AND PLAN: 1. Small-cell carcinoma with metastasis to the brain and bone, followed by Hematology/Oncology Department. She is complaining of severe pain. Her doses of pain medication has been increased. I will monitor for now. 2. Metabolic encephalopathy, resolved. 3. Hyponatremia. Continue with Samsca, which has been on hold for now, likely tomorrow will reassume that treatment. 4. Coronavirus Disease 2019 has been ruled out due to possible upper respiratory infection. 5. Intractable pain, the dose of the pain medication has been increased and recently changed, I will monitor for now. She may need pain patch in the future. I asked the charge nurse to communicate these with the guest relations officer/oncologist to see if they would like to go ahead and put her on something else. 6. Dark stools, possible melena. This has been ruled out. The hemoglobin and hematocrit has been stable and the occult blood in the stool is negative. Hopefully, I will discharge this patient during the weekend, hopefully we are going to be able to control her pain so she can be discharged. cc: Jagdeep Browne MD MTDD
[2019-12-06] MEDS: NS 1,000 ML IV SCH (19:42)
[2019-12-06] MEDS: SEROQUEL PO SCH (20:22)
[2019-12-07] MEDS: NS 1,000 ML IV SCH (02:30)
[2019-12-07] MEDS: SODIUM CHLORIDE 0.9% INJ PRN (04:22)
[2019-12-07] MEDS: PHENERGAN IV PRN ×2 (04:22→14:07)
[2019-12-07] MEDS: DILAUDID IV PRN ×2 (06:18→11:27)
[2019-12-07] MEDS: PROTONIX PO SCH ×2 (06:30→08:26)
[2019-12-07] MEDS: MS CONTIN PO SCH (08:11)
[2019-12-07] MEDS: PAXIL PO SCH (08:12)
[2019-12-07] MEDS: ATIVAN PO SCH ×2 (08:12→15:34)
[2019-12-07] MEDS: MAG-OX PO SCH (08:12)
[2019-12-07] MEDS: FLEXERIL PO SCH ×2 (08:12→15:34)
[2019-12-07] MEDS: SAMSCA PO SCH (08:12)
[2019-12-07] MEDS: NEURONTIN PO SCH ×2 (08:12→15:34)
[2019-12-07] MEDS: DECADRON PO SCH (08:13)
[2019-12-07] MEDS: NON-FORMULARY BULK MED INH SCH (08:27)
[2019-12-07 15:24] VITALS: BP 117/61
--- NOTE | 2019-12-07 18:33 | DISCHARGE SUMMARY ---
ADMISSION DATE: 11/26/2019 DISCHARGE DATE: 12/07/2019 DISCHARGE DIAGNOSES: 1. Small-cell carcinoma with metastasis to the brain and bone, followed by hematology/oncology department as well as radiation oncology. 2. Intractable pain, better. 3. Metabolic encephalopathy, resolved. 4. Hyponatremia, on chronic Samsca treatment, likely due to syndrome of inappropriate antidiuretic hormone secretion. 5. Coronavirus Disease 2019 has been ruled out. 6. Gastrointestinal bleed has been ruled out with negative Hemoccult and stable hemoglobin. PROCEDURES PERFORMED: 1. Chest abdomen and pelvis CT scan dated 11/25/2019. Impression: Left suprahilar lung mass that measures slightly smaller than the previous study. However, this is probably due to differences in slice registration. Interval worsening of diffuse metastatic disease to the liver, development of extensive sclerotic bony metastasis seen throughout the spine, ribs, pelvis and sacrum, multiple fluid-filled loops, mild gallbladder wall thickening, atrophic left kidney, but with an increase in the distention of the left renal collecting system. 2. Chest x-ray dated 11/26/2019. Impression: No acute process. 3. Chest CT scan dated 11/26/2019. Mild bronchial mucous plugging at the superior aspect of the left lower lobe, stable chest as compared to the very recent unenhanced CT otherwise. 4. Abdomen x-ray dated 11/27/2019. impression: Ileus. 5. Brain MRI dated 11/28/2019. Impression: Numerous tiny subcentimeter metastatic lesions seen throughout the brain. Consult hematology/oncology department Dr. Miladys Vaughn, Dr. Yina Rene. HOSPITAL COURSE: A 64-year-old female currently treated for metastatic small cell lung cancer followed by Dr. Vaughn. Apparently, she got chemotherapy on 11/22/2019. After a few days after that she began having some shortness of breath periumbilical abdominal pain as well as nausea, vomiting, and diarrhea. Apparently she has been having dark stools for awhile but occult blood in the stool and hemoglobin has been actually stable. She does report generalized weakness, fever and chills. She denies any headache or dizziness. We rule out COVID- 19 on this patient and apparently she has been confused on and off, which I believe is related to her medications. We have to increase the pain medications so she can be better because of her intractable pain. She does have metastasis to the bone and brain and as per the radiology/oncology, probably she needs just palliative chemotherapy. She actually received radiation during this hospitalization. She is today feeling better. Of course, she is scared to go back to home. She lives by herself, but right now she is going to go with a family member/friend home. She is tolerating p.o. She is having bowel movement. She does not have any ileus. At the moment of my exam today she was completely awake, alert, and oriented x3. She will follow up with Dr. Vaughn this coming week. She needs to call for an appointment on Monday. OBJECTIVE: Vital Signs: Temperature 98.2 degrees, pulse 111, respiratory rate 20, blood pressure 117/61, oxygen saturation 98 on room air. HEENT: Head normocephalic, no trauma. PERRLA. Neck: Supple. No JVD. No masses. Central trachea. Chest: Clear to auscultation. Abdomen: Some tenderness to palpation at the level of the epigastric area. Extremities: No edema, no clubbing, no cyanosis. Neurological: The patient is awake, alert. She is oriented. Decreased muscle mass. Weakness. LABORATORY: Lab work from yesterday 12/06/2019: WBC 5.0, hemoglobin 10.6, hematocrit 33.1, platelet 136,000. Sodium 136, potassium 4.7, chloride 103, bicarbonate 26, BUN 10, creatinine 0.7, glucose 117, calcium 8.9. DISCHARGE MEDICATIONS: 1. Cyclobenzaprine 10 mg p.o. t.i.d. 2. Decadron 4 mg p.o. b.i.d. 3. Marinol 5 mg p.o. daily. 4. Trelegy Ellipta 100/62.5/25 1 puff inhaled daily. 5. Gabapentin 800 mg p.o. t.i.d. 6. Robitussin AC 5 mL p.o. q. 12 hours p.r.n. cough. 7. Wentworth 10 every 4 to 6 hours. Previous authorization by Dr. Vaughn. She has been placed on oxy IR during this hospitalization 30 mg p.o. q.4 hours. 8. Morphine ER 60 mg p.o. b.i.d. 9. Omeprazole 40 mg p.o. daily. 10. Nicotine patch 21 mg p.o. TD daily. 11. Magnesium 250 mg p.o. daily. 12. Lorazepam 1 mg p.o. t.i.d. 13. Imodium 2 mg p.o. as needed. 14. Ondansetron 4 mg sublingual t.i.d. as needed. 15. Paroxetine 10 mg p.o. daily. 16. Quetiapine 50 mg p.o. at bedtime. 17. Rizatriptan 10 mg p.o. as needed. 18. Samsca 15 mg p.o. daily. Warfarin 1 mg p.o. at bedtime. FOLLOWUP: Again this patient will follow up with Dr. Vaughn. She will need to call for an appointment this coming Monday. She has been instructed to take the oxycodone IR and go back to her previous treatment with Wentworth. If Dr. Vaughn is okay with that. She will be discharged with a family member/friend. TIME SPENT DISCHARGING THIS PATIENT: 35 minutes. cc: Jagdeep Browne MD
== END 2019-12-07 15:36 | disposition home or self-care (01) | DRG 54 ==
LOC: SUPCPDRO → ED 23:10 → SUATTDRO 11-26 04:37 → 3N 11-26 04:37 → 4N 11-30 19:06
PROVIDERS: ATTEND Internal Medicine